=== PATIENT | female | born 1935 | race Caucasian/White ===

== ENCOUNTER 2019-08-22 00:27 | Outpatient (CLI) | payer MEDICARE, SELFPAY ==
[2019-08-22 16:41] LABS: SARS-CoV-2 RNA PCR Negative
== END 2019-08-22 00:28 | disposition home or self-care (01) ==
LOC: ANHCOVIDDT 00:28
PROVIDERS: PCP Family Medicine; Visit Provider Internal Medicine Gastroenterology
DX: Z01.812 Encounter for preprocedural laboratory examination (principal); Z20.828 Contact with and (suspected) exposure to other viral communicable diseases
CPT/HCPCS: 87635; C9803; U0003

== ENCOUNTER 2019-08-24 02:03 | Day surgery (SDC) | payer MEDICARE, SELFPAY ==
[2019-08-18 11:27] VITALS: BMI 23.4
[2019-08-24 07:51] VITALS: BP 165/75; PULSE 103; RESP 16; TEMP 36.7; O2SAT 98; BMI 23.1
[2019-08-24] MEDS: LACTATED RINGERS 1,000 ML 150 ML IV CONT (08:10)
--- NOTE | 2019-08-24 09:24 | P.PNAN_ITS ---
Anes - Initial Pre Proc Eval Procedure: Operation Date: 08/24/19 09:00 Proposed Procedures p Colonoscopy - Carlos Anand MD Date/Time: 08/24/19 09:24 Surgeon: Carlos Anand MD Pre Op Diagnosis: Constipation Patient Data Age: 84 Gender: F Height: 5 ft 8 in Weight: 69 kg Last Vital Signs Temp 98.1 F 08/24/19 07:51 Pulse 103 H 08/24/19 07:51 Resp 16 08/24/19 07:51 BP 165/75 H 08/24/19 07:51 Pulse Ox 98 08/24/19 07:51 Allergies Allergy/AdvReac Type Severity Reaction Status Date / Time No Known Allergies Allergy Mild Verified 08/24/19 07:50 Home Medications Medication Instructions Recorded Confirmed Type meloxicam 15 mg tablet 15 mg PO DAILY 02/14/19 08/24/19 History quinapril 20 mg tablet 20 mg PO DAILY #90 tablet 07/04/19 08/24/19 Rx tramadol 50 mg tablet 50 mg PO Q8H PRN #90 tablet 08/16/19 08/24/19 Rx linaclotide 145 mcg capsule 145 mcg PO DAILY #30 cap 08/17/19 08/24/19 Rx cholecalciferol (vitamin D3) 100 mcg PO DAILY 08/18/19 08/24/19 History [Vitamin D3] gznnqnmk-kxydz-pfbyv-CF borate 1 tablet PO DAILY 08/18/19 08/24/19 History [Move [facility]] Patient hx anesthesia problems: none Family hx anesthesia problems: none PMFSH Past Medical History Medical History (Updated 08/17/19 @ 14:48 by Carlos Anand MD) Adenomatous colon polyp Bowel habit changes Chronic low back pain without sciatica Dyslipidemia Essential (primary) hypertension Fibromyalgia GERD (gastroesophageal reflux disease) Hiatal hernia Hypertension Idiopathic peripheral neuropathy 04/06/2014 Peripheral neuropathy Raynauds phenomenon Unspecified osteoarthritis, unspecified site Surgical History Surgical History History of appendectomy 02/03/1969 History of total hysterectomy 07/25/1980 Social History Social History Smoking status: Former smoker Second hand tobacco smoke exposure: No Smoking end date: 03/23/72 Alcohol intake: current Substance use: never Substance use type: does not use Anes - Eval Final PreProcedure Day of Procedure 08/24/19 09:24 Patient weight: overweight Heart: regular rate and rhythm Lungs: clear to auscultation Airway: Mallampati scale class III Neurological: alert and oriented Last oral intake: >/= 8 hours ASA classification: III Emergent: no Anesthetic plan: proceed Anesthesia type and monitoring: general GIVS and standard monitoring Informed Consent: The patient's anesthetic plan and its attendant risks and benefits were discussed with the patient/family/POA. Questions were solicited and answers provided to the satisfaction of the patient/family/POA.
--- NOTE | 2019-08-24 10:16 | WPDHPUPDATE1 ---
History and Physical Update Update Date/Time: 08/24/19 10:16 History and Physical has been reviewed, including an updated exam of the patient. There are NO changes in the patient's condition. Risks, benefits, and alternatives have been discussed and questions answered. Patient agrees to proceed with procedure.
[2019-08-24 10:43] VITALS: BP 110/58; PULSE 81; RESP 18; O2SAT 96
[2019-08-24 10:53] VITALS: BP 109/58; PULSE 75; RESP 18; O2SAT 96
[2019-08-24 11:03] VITALS: BP 153/72; PULSE 83; RESP 18; O2SAT 99
[2019-08-24 11:28] LABS: Blood Urea Nitrogen 11 mg/dL (7-17); Calcium 8.7 mg/dL (8.4-10.2); Carbon Dioxide 27 mmol/L (22-30); Chloride 104 mmol/L (98-107); Estimated CRCL calculation 48 ml/min; Estimated Glomerular Filt Rate > 60; Glucose 98 mg/dL (65-105); Potassium 3.4 mmol/L (3.4-5.0); Sodium 139 mmol/L (137-145)
[2019-08-24 11:31] LABS: Basophils Percent Auto 0.6 % (0.2-1.2); Eosinophils Absolute Auto 0.1 K/mm3 (0-0.3); Hematocrit 36.4 % (37.0-47.0); Hemoglobin 11.7 g/dL (12.0-15.0); Immature Granulocyte Absolute 0.01 K/mm3 (0.00-0.031); Immature Granulocyte Percent A 0.2 % (0-0.5); Lymphocytes Percent Auto 18.2 % (18.3-44.2); Mean Corpuscular HGB Conc 32.1 g/dl (32-36); Mean Corpuscular Hemoglobin 27.3 pg (26-34); Mean Corpuscular Volume 84.8 fl (80-100); Mean Platelet Volume 10.3 fl (7.4-10.4); Monocytes Absolute Auto 0.3 K/mm3 (0.1-0.6); Monocytes Percent Auto 6.3 % (2.6-8.5); Neutrophils Absolute Auto 3.7 K/mm3 (1.3-6.7); Neutrophils Percent Auto 73.7 % (45.5-73.1); Platelet Count Result 232 k/mm3 (150-375); Red Blood Count 4.29 M/mm3 (4.2-5.4); Red Cell Distribution Width 13.8 % (11.5-14.5)
--- NOTE | 2019-08-24 11:49 | SUR.PHASEII ---
labs drawn per Dr. Cox order (CBC, BMP, CEA). script for CT scan and phone numbers given to patient.
[2019-08-24 12:01] LABS: Carcinoembryonic Antigen 2.5 ng/mL (0.0-3.0)
== END 2019-08-24 12:16 | disposition home or self-care (01) ==
PROVIDERS: PCP Family Medicine; Visit Provider Internal Medicine Gastroenterology
PROC: 0DJD8ZZ Inspection of Lower Intestinal Tract, Via Natural or Artificial Opening Endoscopic (ICD-10-PCS; CPT 45378; principal; 2019-08-24 09:00)
DX: C18.0 Malignant neoplasm of cecum (principal); D12.5 Benign neoplasm of sigmoid colon; K57.30 Diverticulosis of large intestine without perforation or abscess without bleeding; K64.8 Other hemorrhoids; I10 Essential (primary) hypertension; E78.5 Hyperlipidemia, unspecified; K21.9 Gastro-esophageal reflux disease without esophagitis; M79.7 Fibromyalgia; G62.9 Polyneuropathy, unspecified; M19.90 Unspecified osteoarthritis, unspecified site; I73.00 Raynaud's syndrome without gangrene; Z87.891 Personal history of nicotine dependence
CPT/HCPCS: 45380; 45385; 36415; 80048; 82378; 85025; 88305; J2704; J7120

== ENCOUNTER 2019-08-29 15:13 | Outpatient (CLI) | payer MEDICARE, SELFPAY ==
--- NOTE | ~2019-08-29 | CT_ITS ---
EXAMINATION: CT abdomen pelvis w con DATE: 08/29/2019 15:57 INDICATION: Colon mass. TECHNIQUE: Computed tomography (CT) of the abdomen and pelvis was performed with 100 cc Omnipaque 350 intravenous contrast. The dose-length product was 361.00 mGy-cm. Automated exposure control and iter ative reconstruction technique were employed. COMPARISON: No prior studies for comparison. FINDINGS: There is right lower lobe atelectasis. Heart size normal. No significant pleural or pericar dial effusion. Colonic diverticulosis without evidence for diverticulitis. There is mild thickening o f the proximal transverse colon which may be normal colonic contraction. Correlate for location of un derlying known mass. No obstruction. No small bowel dilation. Subtle 7 mm hypodense lesion of the right hepatic lobe, image 30. Calcified granulomas of the spleen. The pancreas contains calcifications, consistent with chronic pancreatitis. The adrenal glands are u nremarkable. There are small subcentimeter hypodensities of the kidneys, most likely benign cysts. [place] llbladder is contracted. Mild atherosclerosis without evidence for aneurysm. No lymphadenopathy. Ther e is moderate-severe lumbar spondylosis. There is scoliosis. No lytic or blastic lesions. No free air or free fluid. IMPRESSION: 1. Mild thickening of the proximal transverse colon which may be normal colonic contraction. Correlat e for location of underlying known mass. 2: Subtle 7 mm hypodense lesion right hepatic lobe. This is most likely benign cyst or hemangioma, al though metastatic disease cannot be excluded given the history. Reviewed, dictated and finalized at location A. IMPRESSION: 1. Mild thickening of the proximal transverse colon which may be normal colonic contraction. Correlate for location of underlying known mass. 2: Subtle 7 mm hypodense lesion right hepatic lobe. This is most likely benign cyst or hemangioma, although metastatic disease cannot be excluded given the hi story.
== END 2019-08-29 15:14 | disposition home or self-care (01) ==
PROVIDERS: PCP Family Medicine; Visit Provider Internal Medicine Gastroenterology
DX: C18.9 Malignant neoplasm of colon, unspecified (principal); K76.9 Liver disease, unspecified
CPT/HCPCS: 74177; Q9967

== ENCOUNTER 2019-09-12 11:59 | Outpatient (CLI) | payer MEDICARE, SELFPAY ==
--- NOTE | 2019-09-12 13:27 | ECG_ITS ---
Measurements Intervals [place] Rate: 71 P: 25 [place]: 137 QRS: 30 QRSD: 78 T: 29 QT: 386 QTc: 422 Interpretive Statements SINUS RHYTHM EARLY PRECORDIAL R/S TRANSITION BASELINE ARTIFACT- I, II, III, AVR, AVL, AVF BORDERLINE ECG Electronically Signed On 09-12-2019 14:47:27 CDT by Burton Sierra D.O.
[2019-09-12 13:42] LABS: Hematocrit 37.7 % (37.0-47.0); Hemoglobin 12.3 g/dL (12.0-15.0)
== END 2019-09-12 12:00 | disposition home or self-care (01) ==
LOC: ANHSURGERY 12:04
PROVIDERS: PCP Family Medicine; Visit Provider Surgery
DX: C18.9 Malignant neoplasm of colon, unspecified (principal); I10 Essential (primary) hypertension; R94.31 Abnormal electrocardiogram [ECG] [EKG]
CPT/HCPCS: 36415; 85014; 85018; 93005

== ENCOUNTER 2019-09-20 00:03 | Outpatient (CLI) | payer MEDICARE, SELFPAY ==
[2019-09-20 19:45] LABS: SARS-CoV-2 RNA PCR Negative
== END 2019-09-20 00:04 | disposition home or self-care (01) ==
LOC: ANHCOVIDDT 00:04
PROVIDERS: PCP Family Medicine; Visit Provider Surgery
DX: Z01.812 Encounter for preprocedural laboratory examination (principal); Z11.59 Encounter for screening for other viral diseases
CPT/HCPCS: 87635; C9803; U0003

== ENCOUNTER 2019-09-22 10:01 | Inpatient (IN) | payer MEDICARE, SELFPAY ==
[2019-09-12 12:35] VITALS: BP 138/74; PULSE 82; RESP 18; TEMP 36.9; O2SAT 98
[2019-09-12 12:53] VITALS: BMI 24.4
--- NOTE | 2019-09-21 13:21 | WPDANESEPPF ---
Anes - Initial Pre Proc Eval Procedure: Operation Date: 09/22/19 09:00 Proposed Procedures p Hand Assisted Laparoscopic Right Colectomy - Edith Medrano MD Date/Time: 09/21/19 13:21 Surgeon: Edith Medrano MD Pre Op Diagnosis: Right Colon Ca Patient Data Age: 84 Gender: F Height: 5 ft 6.5 in Weight: 69.7 kg Last Vital Signs Temp 98.4 F 09/12/19 12:35 Pulse 82 09/12/19 12:35 Resp 18 09/12/19 12:35 BP 138/74 09/12/19 12:35 Pulse Ox 98 09/12/19 12:35 Allergies Allergy/AdvReac Type Severity Reaction Status Date / Time No Known Allergies Allergy Mild Verified 08/31/19 09:50 Home Medications Medication Instructions Recorded Confirmed Type meloxicam 15 mg tablet 15 mg PO DAILY 02/14/19 09/12/19 History quinapril 20 mg tablet 20 mg PO DAILY #90 tablet 07/04/19 09/12/19 Rx tramadol 50 mg tablet 50 mg PO Q8H PRN #90 tablet 08/16/19 09/12/19 Rx cholecalciferol (vitamin D3) 100 mcg PO DAILY 08/18/19 09/12/19 History [Vitamin D3] tngtsbpb-oqorl-ojsxu-CF borate 1 tablet PO DAILY 08/18/19 09/12/19 History [[facility]] polyethylene glycol 3350 17 17 gm PO DAILY #119 gm 09/05/19 09/12/19 Rx gram/dose oral powder erythromycin 500 mg tablet 500 mg PO .COMPLEX #6 tablet 09/08/19 09/12/19 Rx neomycin 500 mg tablet 500 mg PO .COMPLEX #6 tablet 09/08/19 09/12/19 Rx Patient hx anesthesia problems: none Family hx anesthesia problems: none PMFSH Past Medical History Medical History (Updated 08/31/19 @ 09:59 by Ellie Cui) Adenomatous colon polyp Bowel habit changes Chronic low back pain without sciatica Dyslipidemia Essential (primary) hypertension Fibromyalgia GERD (gastroesophageal reflux disease) Hiatal hernia Hypertension Idiopathic peripheral neuropathy 04/06/2014 Peripheral neuropathy Raynauds phenomenon Unspecified osteoarthritis, unspecified site Surgical History Surgical History History of appendectomy 02/03/1969 History of total hysterectomy 07/25/1980 Social History Social History (Updated 08/29/19 @ 14:43 by Idalia Thompson [facility]) Smoking status: Former smoker Second hand tobacco smoke exposure: No Smoking end date: 03/23/72 Alcohol intake: current Substance use: never Substance use type: does not use Spiritual care concerns: Yes ([employer] ) Anes - Eval Final PreProcedure Day of Procedure 09/21/19 13:21 Patient weight: normal Heart: regular rate and rhythm Lungs: clear to auscultation Airway: Mallampati scale class II Neurological: alert and oriented Last oral intake: >/= 8 hours ASA classification: III Emergent: no Anesthetic plan: proceed Anesthesia type and monitoring: general ETT and standard monitoring Informed Consent: The patient's anesthetic plan and its attendant risks and benefits were discussed with the patient/family/POA. Questions were solicited and answers provided to the satisfaction of the patient/family/POA.
[2019-09-22] VITALS (15 sets, daily range): BP systolic 109–159; BP diastolic 45–98; PULSE 77–98; RESP 10–29; TEMP 36.2–37.4; O2SAT 96–100
[2019-09-22] MEDS: ALVIMOPAN 12 MG CAPSULE PO (08:00)
[2019-09-22] MEDS: IBUPROFEN IV 800 MG/200 ML 800 MG/200 ML BAG 400 MG IVPB (08:00)
[2019-09-22] MEDS: LACTATED RINGERS 1,000 ML 30 ML IV CONT ×2 (08:26→11:01)
--- NOTE | 2019-09-22 09:00 | WPDHPUPDATE1 ---
History and Physical Update Update Date/Time: 09/22/19 09:00 History and Physical has been reviewed, including an updated exam of the patient. There are NO changes in the patient's condition. Risks, benefits, and alternatives have been discussed and questions answered. Patient agrees to proceed with procedure.
[2019-09-22] MEDS: ceFAZolin 2 GM/D5W 50 ML 2 GM/50 ML BAG IVPB (09:13)
[2019-09-22] MEDS: metroNIDAZOLE 500 MG/ISO 100ML 500 MG/100 ML BAG 100 MG IVPB (09:28)
[2019-09-22] MEDS: BUPIVACAINE/EPINEPHRINE 0.5% 30 ML VIAL INFILTRATE (09:55)
--- NOTE | 2019-09-22 11:15 | PM.PROC ---
Procedure Note - Detailed Date of procedure: 09/22/19 Pre-op diagnosis: Right Colon Ca Post-op diagnosis: same Procedure performed: Hand assisted laparoscopic right colectomy, mobilization of hepatic flexure Description of procedure: The patient was taken to the operating room and placed in the supine position. After adequate induction of general anesthesia, the patient was prepped and draped normal sterile fashion. A time-out was then done to verify the patient's identity as well as the procedure being performed. I began by making a hand port incision around the umbilicus. This was carried down into the peritoneal cavity and there was no noted adhesions to the anterior abdominal wall. The hand port was then placed at this point. I then insufflated the abdomen through the hand port. I then placed the camera through the hand port under direct visualization I placed 2 5 mm ports in right lower and right mid abdomen. Once this was done, I examine the right abdomen. It was noted there was some scarring of the right colon to the right lateral abdominal wall and there was also adhesions near the hepatic flexure likely from previous cholecystectomy. Given this I slowly took down all these adhesions under direct visualization with the LigaSure device. Once the right colon was mobilized, I began my medial approach. I did this by 1st recognizing and transecting the right colic vessels. This was taken down near the base of the mesentery with the LigaSure. Once this was done, I carried this plane towards the hepatic flexure until I encountered the duodenum which was mobilized posteriorly. I then began taking down the lateral attachments of the terminal ileum and right colon including taking down the white line of [place] and the hepatic flexure. Once this was done my medial and lateral dissection planes met. I was able to easily manipulate the right colon. At this point, I extracorporealyzed the right colon and terminal ileum. I then transected the terminal ileum approximately 10 cm proximal to the ileo colic junction with a 75 CHRIS stapler. I then localized the tumor in the distal cecum, I measured 10 cm distal to this and transected the right colon at this point. I then performed a aryt-jj-paet functional end-to-end anastomosis between the ileum and proximal transverse colon with a 75 CHRIS stapler followed by a TL 60 stapler. The anastomosis was noted to be tension-free and widely patent. I then copiously irrigated the abdomen, no other pathology was noted. I then closed the hand port incision with a 1 PDS suture at the fascial level. The skin was closed with 4 O Monocryl subcuticular sutures including the 5 mm ports sites. Dermabond was then placed on all wounds. The patient tolerated the procedure well. She was extubated in the operating room postoperatively and will be transferred to the recovery room in stable condition. Implants: Anesthesia: GETA Surgeon: Edith Medrano MD Estimated blood loss (mL): 10 Drains: No Packing: No Pathology: yes Complications: No immediate complications Condition: stable Disposition: PACU Findings: palpable mass in distal cecum
--- NOTE | 2019-09-22 12:53 | SUR.PHASEI ---
FLOOR CALLED; FLOOR NURSE WILL CALL BACK.
--- NOTE | 2019-09-22 13:00 | PC.NURSE ---
This patient, Shira Wynn, was admitted to 3 [facility] Surg Room 319-01. Patient/family oriented to hospital policies and general routines including ID bracelet, bed and alarms, visiting hours, pain management, procedures, bathroom and other care routines, personal items, smoking policy, room service/diet, and visiting hours. Valuables list has been completed. Information on how to activate the Rapid Response Team has been discussed. Patient/Family are encouraged to report perceived risks to care and to ask questions if they do not understand what they are told or what they should do.
[2019-09-22] MEDS: MORPHINE SULFATE 2 MG/ML INJ IV PUSH ×2 (14:05→19:15)
[2019-09-22] MEDS: SODIUM CHLORIDE 0.9% IV 500 ML IV CONT (16:25)
[2019-09-22] MEDS: SODIUM CHLORIDE 0.9% IV 1,000 ML 100 ML IV CONT (18:16)
[2019-09-23] MEDS: MORPHINE SULFATE 2 MG/ML INJ IV PUSH ×5 (00:01→22:07)
[2019-09-23] MEDS: SODIUM CHLORIDE 0.9% IV 1,000 ML 100 ML IV CONT ×2 (05:00→15:10)
[2019-09-23 06:00] VITALS: BP 155/75; PULSE 94; RESP 18; TEMP 36.6; O2SAT 98
[2019-09-23 06:36] LABS: Hematocrit 36.7 % (37.0-47.0); Hemoglobin 12.2 g/dL (12.0-15.0); Mean Corpuscular HGB Conc 33.2 g/dl (32-36); Mean Corpuscular Hemoglobin 27.3 pg (26-34); Mean Corpuscular Volume 82.1 fl (80-100); Mean Platelet Volume 10.1 fl (7.4-10.4); Platelet Count Result 249 k/mm3 (150-375); Red Blood Count 4.47 M/mm3 (4.2-5.4); Red Cell Distribution Width 13.8 % (11.5-14.5)
[2019-09-23 06:55] LABS: Blood Urea Nitrogen 9 mg/dL (7-17); Calcium 8.5 mg/dL (8.4-10.2); Carbon Dioxide 28 mmol/L (22-30); Chloride 104 mmol/L (98-107); Estimated CRCL calculation 51 ml/min; Estimated Glomerular Filt Rate > 60; Glucose 158 mg/dL (65-105); Potassium 3.7 mmol/L (3.4-5.0); Sodium 137 mmol/L (137-145)
[2019-09-23] MEDS: CHOLECALCIFEROL 1,000 UNIT TABLET 4000 UNITS PO (08:46)
[2019-09-23] MEDS: lisinopriL 20 MG TABLET PO (08:47)
[2019-09-23] MEDS: MELOXICAM 7.5 MG TABLET 15 MG PO (08:47)
[2019-09-23] MEDS: PANTOPRAZOLE SODIUM IV 40 MG VIAL IV PUSH (08:48)
--- NOTE | 2019-09-23 08:57 | PM.PNGS ---
Progress Note: A&P Assessment and Plan (1) Colon adenocarcinoma: Code(s): C18.9 - Malignant neoplasm of colon, unspecified Status: Acute Assessment and Plan: doing well, add Toradol for pain control, OOB/IS, cont clears, await bowel fxn, path Subjective Subjective Date/Time Seen: 09/23/19 08:57 feels ok, c/o abd soreness c movt Review of Systems Constitutional: Constitutional: Denies fatigue, Denies lethargy and Denies weakness Cardiovascular: Cardiovascular: Denies chest pain Respiratory: Respiratory: Denies dyspnea Gastrointestinal: Gastrointestinal: Reports abdominal pain, Denies bloating, Denies nausea and Denies vomiting Exam Const: General: no acute distress Resp: Auscultation: clear to auscultation bilaterally Cardio: Rate: regular rate Rhythm: regular rhythm GI: Other: S, mod dist, lawrence TTP, incisions C/D/I Objective Data Vital Signs Vital Signs: Vital Signs - 24 hr 09/22/19 11:01 09/22/19 11:15 09/22/19 11:30 Temperature 36.2 C L Pulse Rate 78 77 79 Respiratory Rate 16 20 12 Blood Pressure 109/98 H 129/72 128/61 Pulse Oximetry 100 99 100 09/22/19 11:45 09/22/19 12:00 09/22/19 12:10 Temperature Pulse Rate 81 82 85 Respiratory Rate 16 20 29 H Blood Pressure 127/55 L 121/45 L 133/64 Pulse Oximetry 100 100 100 09/22/19 12:30 09/22/19 12:45 09/22/19 13:00 Temperature 37.4 C Pulse Rate 83 86 93 Respiratory Rate 10 L 10 L 18 Blood Pressure 120/72 121/60 139/63 Pulse Oximetry 100 97 97 09/22/19 13:15 09/22/19 13:45 09/22/19 14:45 Temperature 36.7 C Pulse Rate 93 90 88 Respiratory Rate 18 18 16 Blood Pressure 128/61 130/60 135/73 Pulse Oximetry 96 98 99 09/22/19 18:45 09/22/19 22:00 09/23/19 06:00 Temperature 37.1 C 36.3 C L 36.6 C Pulse Rate 80 98 94 Respiratory Rate 18 18 18 Blood Pressure 127/61 159/80 H 155/75 H Pulse Oximetry 99 96 98 Intake/Output Intake/Output: Intake & Output 09/20/19 09/21/19 09/22/19 09/23/19 23:59 23:59 23:59 23:59 Intake Total 0 1350 Output Total 750 Balance 2089 600 Meds/Results Medications: Active Medications Generic Name Dose Route Start Last Admin Trade Name Freq PRN Reason Stop Dose Admin Hydrocodone Bitart/Acetaminophen 1 tab 09/22/19 11:08 [place] 5-325 Mg PO Q4H PRN Pain Rated 4-6 Sodium Chloride 1,000 mls @ 100 mls/hr 09/22/19 17:10 09/23/19 05:00 Normal Saline Iv IV CONT 100 mls/hr .Q10H LEE ANN Administration Ketorolac Tromethamine 30 mg 09/23/19 08:55 Toradol Inj IM Q6H PRN Pain Rated 4-6 Lisinopril 20 mg 09/23/19 09:00 09/23/19 08:47 Prinivil PO 10/23/19 09:01 20 mg DAILY LEE ANN Administration Morphine Sulfate 2 mg 09/22/19 11:08 09/23/19 06:23 Morphine Sulfate Inj IV PUSH 2 mg Q4H PRN Administration Pain Rated 7-10 Non-Formulary Medication 1 tablet 09/23/19 09:00 Izpznydp-Cbnca-Mztlm-Cf Borate [Move [facility]] PO 10/23/19 09:01 DAILY [facility] Ondansetron HCl 4 mg 09/22/19 07:56 Zofran Inj IV PUSH ONCE PRN Nausea Pantoprazole Sodium 40 mg 09/23/19 09:00 09/23/19 08:48 Protonix Iv IV PUSH 40 mg QAM [facility] Administration Vitamin D 4,000 unit 09/23/19 09:00 09/23/19 08:46 Vitamin D PO 4,000 unit DAILY [facility] Administration Labs Labs: Laboratory Results - last 24 hr 09/23/19 09/23/19 06:25 06:25 WBC 9.0 RBC 4.47 Hgb 12.2 Hct 36.7 L MCV 82.1 MCH 27.3 MCHC 33.2 RDW 13.8 Plt Count 249 MPV 10.1 Sodium 137 Potassium 3.7 Chloride 104 Carbon Dioxide 28 BUN 9 Creatinine 0.70 Estim Creat Clear Calc 51 Estimated GFR > 60 Glucose 158 H Calcium 8.5
[2019-09-23 11:59] VITALS: BMI 23.3
[2019-09-23 14:00] VITALS: BP 156/80; PULSE 96; RESP 16; TEMP 36.8; O2SAT 98
[2019-09-23 22:00] VITALS: BP 158/79; PULSE 101; RESP 16; TEMP 37.2; O2SAT 96
[2019-09-24] VITALS (7 sets, daily range): BP systolic 130–165; BP diastolic 72–83; PULSE 97–180; RESP 16–20; TEMP 36.6–37.2; O2SAT 93–98
[2019-09-24] MEDS: SODIUM CHLORIDE 0.9% IV 1,000 ML 100 ML IV CONT ×2 (02:41→12:05)
[2019-09-24] MEDS: MORPHINE SULFATE 2 MG/ML INJ IV PUSH (04:44)
[2019-09-24] MEDS: KETOROLAC 30 MG/ML VIAL (*BKC) IM ×3 (07:03→21:52)
[2019-09-24] MEDS: lisinopriL 20 MG TABLET PO (09:40)
[2019-09-24] MEDS: PANTOPRAZOLE SODIUM IV 40 MG VIAL IV PUSH (09:40)
[2019-09-24] MEDS: CHOLECALCIFEROL 1,000 UNIT TABLET 4000 UNITS PO (09:40)
--- NOTE | 2019-09-24 13:00 | PM.PNGS ---
Progress Note: A&P Assessment and Plan (1) Colon adenocarcinoma: Code(s): C18.9 - Malignant neoplasm of colon, unspecified Status: Acute Assessment and Plan: Advance to full liquids today and stop IV fluids Increase activity, await return of bowel function Path pending Subjective Subjective Date/Time Seen: 09/24/19 13:00 Post Op day: 2 Patient reports: tolerating liquids well, no flatus and no bowel movement Interval history: No bloating or nausea Exam GI: Inspection: incision (C/D/I) GI Palp: Yes Tenderness to palpation present (GI) (incisional) Auscultation: Hypoactive bowel sounds present Objective Data Vital Signs Vital Signs: Vital Signs - 24 hr 09/23/19 14:00 09/23/19 22:00 09/24/19 06:00 Temperature 36.8 C 37.2 C 36.6 C Pulse Rate 96 101 H 97 Respiratory Rate 16 16 16 Blood Pressure 156/80 H 158/79 H 165/72 H Pulse Oximetry 98 96 98 Intake/Output Intake/Output: Intake & Output 09/21/19 09/22/19 09/23/19 09/24/19 23:59 23:59 23:59 23:59 Intake Total 2090 3620 2490 Output Total 2350 2700 Balance 2090 1270 -210 Meds/Results Medications: Active Medications Generic Name Dose Route Start Last Admin Trade Name Freq PRN Reason Stop Dose Admin Hydrocodone Bitart/Acetaminophen 1 tab 09/22/19 11:08 [place] 5-325 Mg PO Q4H PRN Pain Rated 4-6 Sodium Chloride 1,000 mls @ 100 mls/hr 09/22/19 17:10 09/24/19 12:05 Normal Saline Iv IV CONT 100 mls/hr .Q10H LEE ANN Administration Ketorolac Tromethamine 30 mg 09/23/19 08:55 09/24/19 07:03 Toradol Inj IM 30 mg Q6H PRN Administration Pain Rated 4-6 Lisinopril 20 mg 09/23/19 09:00 09/24/19 09:40 Prinivil PO 10/23/19 09:01 20 mg DAILY LEE ANN Administration Morphine Sulfate 2 mg 09/22/19 11:08 09/24/19 04:44 Morphine Sulfate Inj IV PUSH 2 mg Q4H PRN Administration Pain Rated 7-10 Non-Formulary Medication 1 tablet 09/23/19 09:00 Vmdagcax-Ormfk-Zxowt-Cf Borate [[facility]] PO 10/23/19 09:01 DAILY [facility] Ondansetron HCl 4 mg 09/22/19 07:56 Zofran Inj IV PUSH ONCE PRN Nausea Pantoprazole Sodium 40 mg 09/23/19 09:00 09/24/19 09:40 Protonix Iv IV PUSH 40 mg QAM LEE ANN Administration Vitamin D 4,000 unit 09/23/19 09:00 09/24/19 09:40 Vitamin D PO 4,000 unit DAILY LEE ANN Administration
--- NOTE | 2019-09-24 22:17 | ECG_ITS ---
Measurements Intervals [place] Rate: 108 P: 23 [place]: 147 QRS: 23 QRSD: 79 T: 29 QT: 313 QTc: 420 Interpretive Statements SINUS TACHYCARDIA ATRIAL PREMATURE COMPLEX EARLY PRECORDIAL R/S TRANSITION BORDERLINE ST ABNORMALITY- ANTEROSEPTAL LEADS BASELINE ARTIFACT- I, III, AVL ABNORMAL ECG Electronically Signed On 09-25-2019 6:56:09 CDT by Burton Sierra D.O.
[2019-09-24] MEDS: ADENOSINE IV SOLN 6 MG/2 ML VIAL IV PUSH (22:27)
--- NOTE | 2019-09-24 22:46 | PM.EVENT ---
Event Note Event Note Event Note: RAPID RESPONSE NOTE Called to see this 84 year old female via Rapid Response. This 84 year old is s/ POP #2 days Right sided hemicolectomy for colon cancer and tonight suddenly went into tachycardia. Nursing staff found her heart rate in the 170s-180s. On my arrival to bedside the patient denies any new symptoms other than abdominal discomfort at her surgical site. EKG demonstrated SVT. The patient was administered 6 mg of Adenosine which converted her into a sinus tachycardia w/ HR of 105 bpm. Routine labs were obtained and the patient will be transferred to IMU for closer monitoring. I have called General Surgery, Dr. Blair and updated him on the patient's condition.
--- NOTE | 2019-09-24 22:50 | PC.NURSE ---
This patient, Shira Wynn, was received from [ [phone]] on 09/24/19 at 2250. Personal belongings list checked and signed. Patient/family oriented to unit policies and routines
--- NOTE | 2019-09-24 22:56 | PM.IMCN ---
Assessment and Plan Assessment and plan (1) SVT (supraventricular tachycardia): Code(s): I47.1 - Supraventricular tachycardia Status: Resolved Assessment and Plan: The patient has now converted to sinus tachycardia w/ adenosine. She is being transferred to IMU for closer monitoring. Telemetry. We will check CBCd, BMP, Mg2+, Troponin, TSH w/ reflex T4, Urinalysis. NS 250 cc IV bolus. (2) S/P colectomy: Code(s): Z90.49 - Acquired absence of other specified parts of digestive tract Status: Acute Assessment and Plan: Continue Surgery recommendations. Pain control per primary team. (3) Essential (primary) hypertension: Code(s): I10 - Essential (primary) hypertension Status: Chronic Assessment and Plan: Stable. Monitor blood pressure. Continue ACEI. (4) Peripheral neuropathy: Qualifiers: Peripheral neuropathy type: polyneuropathy, unspecified Qualified Code(s): G62.9 - Polyneuropathy, unspecified Code(s): G62.9 - Polyneuropathy, unspecified Status: Chronic Assessment and Plan: Continue tramadol. Additional Plan Date of service was 09/24/2019 at 22:30 hrs. HPI Data of Consult Consult date: 09/24/19 Requesting Physician: Edith Medrano MD Primary Care Provider: Michael Higgins MD Consult Narrative Narrative: Thank you for consulting us to see this 84 year old female who is s/p POP#2 days right hemicolectomy secondary to colon cancer who tonight suddenly went into tachycardia. Rapid response was called as the patient was incidentally found to be in tachycardia with a heart rate in the 180s. The patient was found to be in SVT on EKG and her heart rate converted to a sinus tachycardia w/ adenosine 6 mg IV x 1. The patient denied any symptoms during the episode. She denies any chest pain, shortness of breath, headache, or dizziness. She continues to have mild abdominal discomfort around her surgical site. She has no other complaints. Review of Systems Review of Systems: All systems reviewed & are unremarkable except as noted in HPI and below PMFSH Past Medical History Medical History Adenomatous colon polyp Bowel habit changes Chronic low back pain without sciatica Dyslipidemia Essential (primary) hypertension Fibromyalgia GERD (gastroesophageal reflux disease) Hiatal hernia Hypertension Idiopathic peripheral neuropathy 04/06/2014 Peripheral neuropathy Raynauds phenomenon Unspecified osteoarthritis, unspecified site Surgical History Surgical History History of appendectomy 02/03/1969 History of total hysterectomy 07/25/1980 Family History Family History Mother Carcinoma of colon Social History Social History Smoking packs per day: 1 Smoking cigarettes per day: 20.0 Years smoked: 15 Smoking pack-years: 15.00 Smoking status: Former smoker Tobacco type: cigarettes Second hand tobacco smoke exposure: No Smoking end date: 03/23/72 Alcohol intake: never Substance use: never Substance use type: does not use Gender identity (if verbalized by the patient): Female Spiritual care concerns: No Meds Home Medications and Allergies Home Medications Medication Instructions Recorded Confirmed Type meloxicam 15 mg tablet 15 mg PO DAILY 02/14/19 09/22/19 History quinapril 20 mg tablet 20 mg PO DAILY #90 tablet 07/04/19 09/22/19 Rx tramadol 50 mg tablet 50 mg PO Q8H PRN #90 tablet 08/16/19 09/22/19 Rx cholecalciferol (vitamin D3) 100 mcg PO DAILY 08/18/19 09/22/19 History [Vitamin D3] lkqlrabq-agtzd-dpvbj-CF borate 1 tablet PO DAILY 08/18/19 09/22/19 History [[facility]] polyethylene glycol 3350 17 17 gm PO DAILY #119 gm 09/05/19 09/22/19 Rx gram/dos
[2019-09-24 23:01] LABS: Basophils Percent Auto 0.4 % (0.2-1.2); Eosinophils Absolute Auto 0.1 K/mm3 (0-0.3); Eosinophils Percent Auto 0.9 % (0-4.4); Hematocrit 40.1 % (37.0-47.0); Immature Granulocyte Absolute 0.02 K/mm3 (0.00-0.031); Immature Granulocyte Percent A 0.3 % (0-0.5); Lymphocytes Absolute Auto 1.04 K/mm3 (0.9-3.2); Lymphocytes Percent Auto 14.8 % (18.3-44.2); Mean Corpuscular HGB Conc 32.4 g/dl (32-36); Mean Corpuscular Hemoglobin 27.5 pg (26-34); Mean Platelet Volume 10.4 fl (7.4-10.4); Monocytes Absolute Auto 0.6 K/mm3 (0.1-0.6); Monocytes Percent Auto 8.9 % (2.6-8.5); Neutrophils Absolute Auto 5.3 K/mm3 (1.3-6.7); Neutrophils Percent Auto 74.7 % (45.5-73.1); Platelet Count Result 256 k/mm3 (150-375); Red Blood Count 4.72 M/mm3 (4.2-5.4); Red Cell Distribution Width 13.7 % (11.5-14.5); White Blood Count 7.1 K/mm3 (4.5-10.0)
[2019-09-24] MEDS: SODIUM CHLORIDE 0.9% IV 250 ML 999 ML IV CONT (23:01)
[2019-09-24 23:12] LABS: Blood Urea Nitrogen 10 mg/dL (7-17); Calcium 8.4 mg/dL (8.4-10.2); Carbon Dioxide 26 mmol/L (22-30); Chloride 106 mmol/L (98-107); Estimated CRCL calculation 51 ml/min; Estimated Glomerular Filt Rate > 60; Glucose 132 mg/dL (65-105); Magnesium 1.8 mg/dL (1.6-2.3); Potassium 3.1 mmol/L (3.4-5.0); Sodium 137 mmol/L (137-145)
[2019-09-24 23:24] LABS: Troponin I < 0.012 ng/mL (0.000-0.034)
[2019-09-25] VITALS (16 sets, daily range): BP systolic 111–160; BP diastolic 69–88; PULSE 92–111; RESP 12–20; TEMP 35.6–37.1; O2SAT 93–100
[2019-09-25] MEDS: POTASSIUM CHLORIDE 20 MEQ TABLET 40 MEQ PO (00:46)
[2019-09-25] MEDS: MORPHINE SULFATE 2 MG/ML INJ IV PUSH (01:36)
--- NOTE | 2019-09-25 01:46 | PC.NURSE ---
Please add daughter to contact list Gretchen Lopes [phone]
--- NOTE | 2019-09-25 01:50 | PC.NURSE ---
This patient, Shira Wynn, was transferred to [IMU [id number]] on 09/24/19 at 2245. Personal belongings sent with patient. Belongings list checked and signed with receiving [ tech]. Report given to [Margarita ]. Appropriate documentation sent with patient.
[2019-09-25] MEDS: lisinopriL 20 MG TABLET PO (09:32)
[2019-09-25] MEDS: PANTOPRAZOLE SODIUM IV 40 MG VIAL IV PUSH (09:32)
[2019-09-25] MEDS: CHOLECALCIFEROL 1,000 UNIT TABLET 4000 UNITS PO (09:33)
--- NOTE | 2019-09-25 15:48 | PM.PNGS ---
Progress Note: A&P Assessment and Plan (1) Colon adenocarcinoma: Code(s): C18.9 - Malignant neoplasm of colon, unspecified Status: Acute Assessment and Plan: Advance to soft regular diet today Possibly home tomorrow if remaining stable and improving Pathology pending (2) Patient is [employer]: Code(s): Z78.9 - Other specified health status Status: Acute (3) SVT (supraventricular tachycardia): Code(s): I47.1 - Supraventricular tachycardia Status: Resolved Assessment and Plan: appreciate hospitalist input On telemetry Subjective Subjective Date/Time Seen: 09/25/19 15:48 Patient had tachycardic episode last night and rapid response called. Was in SVT and Night time hospitalist was able to convert patient back to sinus rhythm. She was feeling palpitations when it happened last night. No more feelings like this today. Bowels moving, and pain controlled. No fevers. Exam GI: Inspection: incision (clean/dry/intact) GI Palp: Yes Soft to palpation, Yes Tenderness to palpation present (GI) (incisional) and No Guarding due to palpation present (GI) Auscultation: normal bowel sounds Objective Data Vital Signs Vital Signs: Vital Signs - 24 hr 09/24/19 22:00 09/24/19 22:05 09/24/19 22:15 Temperature 37.2 C 37.2 C Pulse Rate 180 H 178 H 178 H Respiratory Rate 20 16 Blood Pressure 130/74 136/74 Pulse Oximetry 93 09/24/19 22:54 09/24/19 22:59 09/24/19 23:00 Temperature 36.6 C Pulse Rate 102 H 103 H 104 H Respiratory Rate 18 Blood Pressure 133/83 133/83 Pulse Oximetry 94 09/25/19 00:00 09/25/19 00:04 09/25/19 02:00 Temperature 36.4 C Pulse Rate 102 H 104 H 99 Respiratory Rate 18 Blood Pressure 148/87 H Pulse Oximetry 95 09/25/19 04:00 09/25/19 06:00 09/25/19 07:46 Temperature 36.2 C L 35.6 C L Pulse Rate 103 H 105 H 109 H Respiratory Rate 20 12 Blood Pressure 131/71 148/88 H Pulse Oximetry 94 93 09/25/19 08:00 09/25/19 10:00 09/25/19 12:00 Temperature 35.8 C L Pulse Rate 111 H 101 H 96 Respiratory Rate 20 Blood Pressure 147/72 H Pulse Oximetry 95 09/25/19 14:00 Temperature Pulse Rate 93 Respiratory Rate Blood Pressure Pulse Oximetry Intake/Output Intake/Output: Intake & Output 09/22/19 09/23/19 09/24/19 09/25/19 23:59 23:59 23:59 23:59 Intake Total 2090 3620 4010 480 Output Total 2350 3550 250 Balance 2090 1270 460 230 Meds/Results Medications: Active Medications Generic Name Dose Route Start Last Admin Trade Name Freq PRN Reason Stop Dose Admin Hydrocodone Bitart/Acetaminophen 1 tab 09/22/19 11:08 09/25/19 11:10 [place] 5-325 Mg PO 1 tab Q4H PRN Administration Pain Rated 4-6 Ketorolac Tromethamine 30 mg 09/23/19 08:55 09/24/19 21:52 Toradol Inj IM 30 mg Q6H PRN Administration Pain Rated 4-6 Lisinopril 20 mg 09/23/19 09:00 09/25/19 09:32 Prinivil PO 10/23/19 09:01 20 mg DAILY LEE ANN Administration Morphine Sulfate 2 mg 09/22/19 11:08 09/25/19 01:36 Morphine Sulfate Inj IV PUSH 2 mg Q4H PRN Administration Pain Rated 7-10 Non-Formulary Medication 1 tablet 09/23/19 09:00 Yrrdimus-Duiur-Uburc-Cf Borate [[facility]] PO 10/23/19 09:01 DAILY LEE ANN Ondansetron HCl 4 mg 09/22/19 07:56 Zofran Inj IV PUSH ONCE PRN Nausea Pantoprazole Sodium 40 mg 09/23/19 09:00 09/25/19 09:32 Protonix Iv IV PUSH 40 mg QAM LEE ANN Administration Vitamin D 4,000 unit 09/23/19 09:00 09/25/19 09:33 Vitamin D PO 4,000 unit DAILY LEE ANN Administration Labs Labs: Laboratory Results - last 24 hr 09/24/19 09/24/19 09/24/19 22:51 22:51 22:51 WBC 7.1 RBC 4.72 Hgb 13.0 Hct 40.1 MCV 85.0 MCH 27.5 MCHC 32.4 RDW 13.7 Plt Count 256 MPV 10.4 Immature Gran % (Auto) 0.3 Neut % (Auto) 74.7 H Lymph % (Auto) 14.8 L [place] % (Auto) 8.9 H Eos % (
--- NOTE | 2019-09-25 16:26 | PM.IMPN ---
Progress Note: A&P Assessment and Plan (1) SVT (supraventricular tachycardia): Code(s): I47.1 - Supraventricular tachycardia Status: Resolved Assessment and Plan: TReat anxiety continue cardiac monitor (2) S/P colectomy: Code(s): Z90.49 - Acquired absence of other specified parts of digestive tract Status: Acute Assessment and Plan: Pain control per primary team - surgery team (3) Essential (primary) hypertension: Code(s): I10 - Essential (primary) hypertension Status: Chronic Assessment and Plan: Stable. Monitor blood pressure. Continue ACEI. (4) Peripheral neuropathy: Qualifiers: Peripheral neuropathy type: polyneuropathy, unspecified Qualified Code(s): G62.9 - Polyneuropathy, unspecified Code(s): G62.9 - Polyneuropathy, unspecified Status: Chronic Assessment and Plan: Continue tramadol. Subjective Date/time seen: 09/25/19 16:26 Interval history: Pt appears anxious alot going on recently. S/p POP#3 days right hemicolectomy secondary to colon cancer No longer in SVT. Plan is to treat the anxiety. and move to telemetry floor Review of Systems Review of Systems: All systems reviewed & are unremarkable except as noted in HPI and below Exam Const: General: cooperative, no acute distress, alert and awake Nutritional Appearance: well nourished Orientation/consciousness: patient oriented x3 Resp: Effort & Inspection: normal respiratory effort Auscultation: clear to auscultation bilaterally Cardio: Rate: tachycardic Rhythm: regular rhythm Heart sounds: no murmurs GI: Inspection: other (Surgical site is closed and dry w/ surgical glue. No secretions. ) Auscultation: normal bowel sounds Rectal Exam: deferred Skin: General skin exam: normal color and no rashes or lesions noted Neuro: General: patient oriented x3 Cranial nerves: Yes CN's II-XII intact bilaterally and Yes Equal, round and reactive pupils present Speech: normal speech Motor exam (neuro): 5/5 motor strength present throughout Sensory Exam: normal sensation Extrem: General: normal to inspection and no edema Psych: Mental Status: mental status grossly normal Affect: normal affect Objective Data Vital Signs Vital Signs: Vital Signs - 24 hr 09/24/19 22:00 09/24/19 22:05 09/24/19 22:15 Temperature 37.2 C 37.2 C Pulse Rate 180 H 178 H 178 H Respiratory Rate 20 16 Blood Pressure 130/74 136/74 Pulse Oximetry 93 09/24/19 22:54 09/24/19 22:59 09/24/19 23:00 Temperature 36.6 C Pulse Rate 102 H 103 H 104 H Respiratory Rate 18 Blood Pressure 133/83 133/83 Pulse Oximetry 94 09/25/19 00:00 09/25/19 00:04 09/25/19 02:00 Temperature 36.4 C Pulse Rate 102 H 104 H 99 Respiratory Rate 18 Blood Pressure 148/87 H Pulse Oximetry 95 09/25/19 04:00 09/25/19 06:00 09/25/19 07:46 Temperature 36.2 C L 35.6 C L Pulse Rate 103 H 105 H 109 H Respiratory Rate 20 12 Blood Pressure 131/71 148/88 H Pulse Oximetry 94 93 09/25/19 08:00 09/25/19 10:00 09/25/19 12:00 Temperature 35.8 C L Pulse Rate 111 H 101 H 96 Respiratory Rate 20 Blood Pressure 147/72 H Pulse Oximetry 95 09/25/19 14:00 Temperature Pulse Rate 93 Respiratory Rate Blood Pressure Pulse Oximetry Intake/Output Intake/Output: Intake & Output 09/22/19 09/23/19 09/24/19 09/25/19 23:59 23:59 23:59 23:59 Intake Total 2090 3620 4010 480 Output Total 2350 3550 250 Balance 2090 1270 460 230 Meds/Results Medications: Active Medications Generic Name Dose Route Start Last Admin Trade Name Freq PRN Reason Stop Dose Admin Hydrocodone Bitart/Acetaminophen 1 tab 09/22/19 11:08 09/25/19 16:09 [place] 5-325 Mg PO 1 tab Q4H PRN Administration Pain Rated 4-6 Ketorolac Tromethamine 30 mg 09/23/19 08:55 09/24/19 21:52 Toradol Inj IM 30 mg Q6H PRN Administration Pain Rated 4-6 Lisinopril 20 mg 09/23/19 09:0
--- NOTE | 2019-09-25 22:35 | PC.NURSE ---
This patient, Shira Wynn, was transferred to [[id number] ] on 09/25/19 at 2235. Personal belongings sent with patient. Belongings list checked and signed with receiving [ ]. Report given to [Peace russell ]. Appropriate documentation sent with patient.
--- NOTE | 2019-09-25 22:40 | PC.NURSE ---
This patient, Shira Wynn, was received from [U 204 ] on 09/25/19 at 2240. Personal belongings list checked and signed. Patient/family oriented to unit policies and routines
[2019-09-26] VITALS (8 sets, daily range): BP systolic 139–167; BP diastolic 75–81; PULSE 96–104; RESP 18; TEMP 36.7–37.3; O2SAT 96–98
[2019-09-26 06:23] LABS: Hematocrit 37.5 % (37.0-47.0); Hemoglobin 12.1 g/dL (12.0-15.0); Mean Corpuscular HGB Conc 32.3 g/dl (32-36); Mean Corpuscular Hemoglobin 27.3 pg (26-34); Mean Corpuscular Volume 84.7 fl (80-100); Mean Platelet Volume 10.9 fl (7.4-10.4); Platelet Count Result 289 k/mm3 (150-375); Red Blood Count 4.43 M/mm3 (4.2-5.4); Red Cell Distribution Width 13.5 % (11.5-14.5); White Blood Count 3.7 K/mm3 (4.5-10.0)
[2019-09-26 06:36] LABS: Blood Urea Nitrogen 12 mg/dL (7-17); Calcium 8.7 mg/dL (8.4-10.2); Carbon Dioxide 29 mmol/L (22-30); Chloride 102 mmol/L (98-107); Estimated CRCL calculation 51 ml/min; Estimated Glomerular Filt Rate > 60; Glucose 134 mg/dL (65-105); Potassium 3.5 mmol/L (3.4-5.0); Sodium 136 mmol/L (137-145)
[2019-09-26] MEDS: CHOLECALCIFEROL 1,000 UNIT TABLET 4000 UNITS PO (09:47)
[2019-09-26] MEDS: lisinopriL 20 MG TABLET PO (09:47)
[2019-09-26] MEDS: PANTOPRAZOLE SODIUM IV 40 MG VIAL IV PUSH (09:47)
[2019-09-26] MEDS: SIMETHICONE 80 MG TAB.CHEW PO (11:42)
--- NOTE | 2019-09-26 14:53 | PM.DS ---
DS: Admitting Diagnosis Admitting Diagnosis Admitting Diagnosis: Malignant neoplasm of colon, unspecified. Right colon cancer. Essential hypertension. Dyslipidemia. Osteoarthritis. GERD. Fibromyalgia. Chronic low back pain. Patient is Christian. DS: Discharge Diagnosis Discharge Diagnosis (1) Colon adenocarcinoma: Code(s): C18.9 - Malignant neoplasm of colon, unspecified Status: Acute Assessment and Plan: Patient underwent colonoscopy with Dr. Anand for recent development of constipation on 08/24/19 with findings of a protruding 35mm x 40mm fungating, friable infiltrative, malignant appearing, ulcerated mass at the junction of cecum and proximal ascending colon, near the ileocecal valve. Biopsies were taken and pathology showed polyp to be a colonic adenocarcinoma. Follow-up CT scan performed 08/29/2019 showed mild thickening of the proximal transverse colon. It also showed a subtle 7mm hypodense lesion of the right hepatic lobe - most likely benign cyst or hemangioma. The patient was evaluated by Dr. Medrano as an outpatient in our office and was brought to the hospital to be taken to surgery on 09/22/19 for a hand-assisted laparoscopic right colectomy. Final pathology received today and was discussed with the patient in detail by Dr. Medrano at the bedside. Pathology shows moderately differentiated adenocarcinoma with negative margins and 5/12 positive lymph nodes for metastatic carcinoma. PT3, pN2a, PMX. (2) SVT (supraventricular tachycardia): Code(s): I47.1 - Supraventricular tachycardia Status: Resolved Assessment and Plan: Had an episode of SVT on the night of POD#2 with her heart rate in the 170-180's. Rapid response was called and the patient was treated with Adenosine. She apparently was asymptomatic. Hospitalist was consulted on her case. Troponin drawn and negative. EKG showed sinus tachycardia. She had experienced a significant increase in anxiety during her hospitalization and it was felt this is likely contributing to the tachycardia. She was started on Xanax for anxiety. The patient now admits to feeling very anxious, which is exacerbated at night when she does not have family around. Her daughter is at the bedside today and feels her mother is much more anxious than normal and it is has been worse at night while in the hospital. I discussed with the patient and her daughter that she should have follow-up with her PCP as soon as possible after discharge to also discuss her anxiety and decide on further management. Patient in sinus rhythm with heart rate in the 90's on my exam this morning. Patient asymptomatic with no cardiac complaints. (3) Essential (primary) hypertension: Code(s): I10 - Essential (primary) hypertension Status: Chronic Assessment and Plan: BP stable. Restarted on home medication following surgery once tolerating a diet. No changes. Follow-up with PCP. (4) Fibromyalgia: Code(s): M79.7 - Fibromyalgia Status: Acute (5) Chronic low back pain without sciatica: Qualifiers: Back pain laterality: unspecified Qualified Code(s): M54.5 - Low back pain; G89.29 - Other chronic pain Code(s): M54.5 - Low back pain; G89.29 - Other chronic pain Status: Acute (6) Dyslipidemia: Code(s): E78.5 - Hyperlipidemia, unspecified Status: Acute (7) Unspecified osteoarthritis, unspecified site: Qualifiers: Osteoarthritis location: unspecified site Osteoarthritis type: unspecified Qualified Code(s): M19.90 - Unspecified osteoarthritis, unspecified site Code(s): M19.90 - Unspecified osteoarthritis, unspecified site Status: Acute (8) GERD (gastroesophageal reflux disease): Code(s): K21.9 - Gastro-esophageal reflux disease without esophagitis Status: Acute (9) Patient is [employer]: Code(s): Z78.9 - Other specified health status Status: Acute DS: Summary Hospi
--- NOTE | 2019-09-26 15:52 | PM.IMPN ---
Progress Note: A&P Assessment and Plan (1) SVT (supraventricular tachycardia): Code(s): I47.1 - Supraventricular tachycardia Status: Resolved Assessment and Plan: TReat anxiety with xanax most likely related to being in the hospital (2) S/P colectomy: Code(s): Z90.49 - Acquired absence of other specified parts of digestive tract Status: Acute Assessment and Plan: Pain control per primary team - surgery team Pt appears anxious alot going on recently. S/p POP#4 days right hemicolectomy secondary to colon cancer No longer in SVT. this am patient is anxious her daughter is present in the room, will give xanax as needed, patient is seen by surgery teams and clinically stable, she is bieng discharged. (3) Essential (primary) hypertension: Code(s): I10 - Essential (primary) hypertension Status: Chronic Assessment and Plan: Stable. Continue ACEI. (4) Peripheral neuropathy: Qualifiers: Peripheral neuropathy type: polyneuropathy, unspecified Qualified Code(s): G62.9 - Polyneuropathy, unspecified Code(s): G62.9 - Polyneuropathy, unspecified Status: Chronic Assessment and Plan: Continue tramadol. Subjective Date/time seen: 09/26/19 15:52 Interval history: Pt appears anxious alot going on recently. S/p POP#4 days right hemicolectomy secondary to colon cancer No longer in SVT. this am patient is anxious her daughter is present in the room, will give xanax as needed, patient is seen by surgery teams and clinically stable, she is bieng discharged. Review of Systems Review of Systems: All systems reviewed & are unremarkable except as noted in HPI and below Exam Const: General: comfortable and no acute distress HENMT: General nose exam: Normal nares present Mouth: Yes moist mucous membranes Eyes: General: appearance normal, both eyes and all related structures Sclera: sclerae normal Neck: Neck: supple Resp: Effort & Inspection: normal respiratory effort Auscultation: clear to auscultation bilaterally Cardio: Rate: regular rate Rhythm: regular rhythm GI: Auscultation: normal bowel sounds Skin: General skin exam: normal color Neuro: Speech: normal speech Sensory Exam: normal sensation Extrem: General: normal to inspection Psych: Affect: Anxious affect present Objective Data Vital Signs Vital Signs: Vital Signs - 24 hr 09/25/19 16:00 09/25/19 17:43 09/25/19 19:48 Temperature 96.4 F L 97.9 F Pulse Rate 105 H 107 H 103 H Respiratory Rate 16 20 Blood Pressure 111/76 140/69 Pulse Oximetry 100 94 09/25/19 20:00 09/25/19 22:00 09/25/19 22:40 Temperature 98.7 F Pulse Rate 96 92 99 Respiratory Rate 20 18 Blood Pressure 160/75 H Pulse Oximetry 94 95 09/26/19 00:00 09/26/19 02:00 09/26/19 04:00 Temperature 99.2 F Pulse Rate 97 99 96 Respiratory Rate 18 Blood Pressure 167/78 H Pulse Oximetry 96 09/26/19 06:00 09/26/19 08:00 09/26/19 12:00 Temperature 98.4 F Pulse Rate 96 103 H 96 Respiratory Rate 18 Blood Pressure 158/81 H Pulse Oximetry 98 09/26/19 14:00 Temperature 98.1 F Pulse Rate 104 H Respiratory Rate 18 Blood Pressure 139/75 Pulse Oximetry 97 Intake/Output Intake/Output: Intake & Output 09/23/19 09/24/19 09/25/19 09/26/19 23:59 23:59 23:59 23:59 Intake Total 3620 4010 1120 820 Output Total 2350 3550 250 Balance 1270 460 870 820 Meds/Results Medications: Active Medications Generic Name Dose Route Start Last Admin Trade Name Freq PRN Reason Stop Dose Admin Hydrocodone Bitart/Acetaminophen 1 tab 09/22/19 11:08 09/26/19 09:47 [place] 5-325 Mg PO 1 tab Q4H PRN Administration Pain Rated 4-6 Alprazolam 0.125 mg 09/25/19 16:53 09/26/19 10:49 Xanax PO 0.125 mg TID PRN Administration Anxiety Ketorolac Tromethamine 30 mg 09/23/19 08:55 09/24/19 21:52 Toradol Inj IM 30 mg Q6H PRN Administration Pain Rated
== END 2019-09-26 16:30 | disposition home or self-care (01) | DRG 330 ==
LOC: ANH3MEDSUR 13:18 → ANHIMU 09-24 23:00 → ANH3MEDSUR 09-25 23:03
PROVIDERS: Family Medicine; Surgery; Admitting Provider Surgery; PCP Family Medicine; Visit Provider Surgery
PROC: 0DTF4ZZ Resection of Right Large Intestine, Percutaneous Endoscopic Approach (ICD-10-PCS; CPT 44204; principal; 2019-09-22 09:00)
DX: C18.2 Malignant neoplasm of ascending colon (principal); I47.2 Ventricular tachycardia; C77.9 Secondary and unspecified malignant neoplasm of lymph node, unspecified; F41.9 Anxiety disorder, unspecified; I10 Essential (primary) hypertension; E78.5 Hyperlipidemia, unspecified; M19.90 Unspecified osteoarthritis, unspecified site; K21.9 Gastro-esophageal reflux disease without esophagitis; M79.7 Fibromyalgia; M54.5 Low back pain; G89.29 Other chronic pain; G60.9 Hereditary and idiopathic neuropathy, unspecified; I73.00 Raynaud's syndrome without gangrene; Z78.9 Other specified health status; Z87.891 Personal history of nicotine dependence; Z86.010 Personal history of colon polyps; Z90.49 Acquired absence of other specified parts of digestive tract
CPT/HCPCS: 36415; 80048; 83735; 84443; 84484; 85025; 85027; 87635; 88309; 93005; A9270; C9113; C9290; C9803; J0131; J0153; J0690; J1100; J1170; J1741; J1885; J2270; J2405; J2704; J2710; J3010; J7030; J7040; J7050; J7120; U0003

== ENCOUNTER 2019-10-17 16:36 | Outpatient (CLI) | payer MEDICARE, SELFPAY ==
[2019-10-17 16:59] LABS: Basophils Percent Auto 0.3 % (0.2-1.2); Eosinophils Absolute Auto 0.1 K/mm3 (0-0.3); Hematocrit 34.4 % (37.0-47.0); Hemoglobin 11.1 g/dL (12.0-15.0); Immature Granulocyte Absolute 0.03 K/mm3 (0.00-0.031); Immature Granulocyte Percent A 0.3 % (0-0.5); Lymphocytes Absolute Auto 0.91 K/mm3 (0.9-3.2); Lymphocytes Percent Auto 9.4 % (18.3-44.2); Mean Corpuscular HGB Conc 32.3 g/dl (32-36); Mean Corpuscular Hemoglobin 27.2 pg (26-34); Mean Corpuscular Volume 84.3 fl (80-100); Mean Platelet Volume 10.2 fl (7.4-10.4); Monocytes Absolute Auto 0.8 K/mm3 (0.1-0.6); Monocytes Percent Auto 8.4 % (2.6-8.5); Neutrophils Absolute Auto 7.8 K/mm3 (1.3-6.7); Neutrophils Percent Auto 80.6 % (45.5-73.1); Platelet Count Result 310 k/mm3 (150-375); Red Blood Count 4.08 M/mm3 (4.2-5.4); Red Cell Distribution Width 13.7 % (11.5-14.5); White Blood Count 9.7 K/mm3 (4.5-10.0)
[2019-10-17 17:13] LABS: Alanine Aminotransferase 12 U/L (4-35); Albumin Level 3.8 g/dL (3.5-5.1); Alkaline Phosphatase 90 U/L (38-126); Anion Gap 11.9 mmol/L (7-16); Aspartate Amino Transferase 22 U/L (14-36); Bilirubin,Total 0.4 mg/dL (0.2-1.3); Blood Urea Nitrogen 9 mg/dL (7-17); Calcium 8.9 mg/dL (8.4-10.2); Carbon Dioxide 29 mmol/L (22-30); Chloride 99 mmol/L (98-107); Estimated Glomerular Filt Rate > 60; Glucose 114 mg/dL (65-105); Potassium 3.9 mmol/L (3.4-5.0); Sodium 136 mmol/L (137-145)
[2019-10-17 17:41] LABS: Carcinoembryonic Antigen 2.6 ng/mL (0.0-3.0)
== END 2019-10-17 16:37 | disposition home or self-care (01) ==
PROVIDERS: PCP Family Medicine; Visit Provider Internal Medicine Hematology & Oncology
DX: C18.2 Malignant neoplasm of ascending colon (principal)
CPT/HCPCS: 36415; 80053; 82378; 85025

== ENCOUNTER 2019-10-20 11:18 | Outpatient (CLI) | payer MEDICARE, SELFPAY ==
--- NOTE | 2019-10-20 11:21 | ECG_ITS ---
Measurements Intervals [place] Rate: 78 P: 54 [place]: 151 QRS: 42 QRSD: 75 T: 42 QT: 362 QTc: 413 Interpretive Statements SINUS RHYTHM BASELINE ARTIFACT- I, III, AVR, AVL, AVF NORMAL ECG Electronically Signed On 10-20-2019 11:44:14 CDT by Burton Sierra D.O.
[2019-10-20 11:53] LABS: Prothrombin Time 13.2 Seconds (11.1-14.7)
[2019-10-20 11:55] LABS: Partial Thromboplastin Time 29.1 SECONDS (22.3-36.8)
== END 2019-10-20 11:19 | disposition home or self-care (01) ==
LOC: ANHSURGERY 11:21
PROVIDERS: PCP Family Medicine; Visit Provider Surgery
DX: C18.9 Malignant neoplasm of colon, unspecified (principal); I10 Essential (primary) hypertension
CPT/HCPCS: 36415; 85610; 85730; 93005

== ENCOUNTER 2019-10-21 00:47 | Outpatient (CLI) | payer MEDICARE, SELFPAY ==
[2019-10-21 20:43] LABS: SARS-CoV-2 RNA PCR Negative
== END 2019-10-21 00:48 | disposition home or self-care (01) ==
LOC: ANHCOVIDDT 00:47
PROVIDERS: PCP Family Medicine; Visit Provider Surgery
DX: Z01.818 Encounter for other preprocedural examination (principal); Z11.59 Encounter for screening for other viral diseases
CPT/HCPCS: 87635; C9803; U0003

== ENCOUNTER 2019-10-24 00:51 | Day surgery (SDC) | payer MEDICARE, SELFPAY ==
[2019-10-19 13:23] VITALS: BMI 21.6
--- NOTE | ~2019-10-24 | XR_ITS ---
EXAMINATION: XR fl guide central line place INDICATION: Port-A-Cath insertion TECHNIQUE: A single intraoperative fluoroscopic image is submitted for review. Fluoroscopy exposure t sarah was 42.8 seconds. The DAP for this procedure was [id number] mGym2. COMPARISON: None available FINDINGS: Fluoroscopic image demonstrates a left subclavian Port-A-Cath ending with its tip in the pr oximal superior vena cava. Please refer to procedure note for full details. IMPRESSION: 1. Left subclavian Port-A-Cath ending with its tip in the proximal superior vena cava. Please refer t o procedure note for full details. Reviewed, dictated and finalized at location A. IMPRESSION: 1. Left subclavian Port-A-Cath ending with its tip in the proximal superior wilfredo a cava. Please refer to procedure note for full details.
--- NOTE | ~2019-10-24 | XR_ITS ---
EXAMINATION: XR chest port-a-cath/central INDICATION: Port-A-Cath insertion TECHNIQUE: Portable AP chest at 0829 hours COMPARISON: 08/06/2005 FINDINGS: A left subclavian Port-A-Cath has been inserted which ends with its tip in the proximal sup erior vena cava. There is kinking of the catheter as it passes between the clavicle and first rib. Th e lungs are free of acute opacities. There is no pleural effusion or pneumothorax. The cardiomediasti nal silhouette is normal. IMPRESSION: 1. Left subclavian Port-A-Cath insertion ending in the proximal superior vena cava. 2. Kinking of the catheter as it passes between the clavicle and first rib increases risk for cathete r fracture. Reviewed, dictated and finalized at location A. IMPRESSION: 1. Left subclavian Port-A-Cath insertion ending in the proximal superior vena c leigha. 2. Kinking of the catheter as it passes between the clavicle and first rib incr eases risk for catheter fracture.
[2019-10-24 07:00] VITALS: BP 151/67; PULSE 76; RESP 14; TEMP 36.6; O2SAT 98; BMI 20.7
--- NOTE | 2019-10-24 07:05 | WPDANESEFPP ---
Anes - Eval Final PreProcedure Day of Procedure 10/24/19 07:05 Patient weight: normal Heart: regular rate and rhythm Lungs: clear to auscultation Airway: Mallampati scale class II Neurological: alert and oriented Last oral intake: >/= 8 hours ASA classification: III Emergent: no Anesthetic plan: proceed Anesthesia type and monitoring: general GIVS and standard monitoring Informed Consent: The patient's anesthetic plan and its attendant risks and benefits were discussed with the patient/family/POA. Questions were solicited and answers provided to the satisfaction of the patient/family/POA.
--- NOTE | 2019-10-24 07:22 | WPDHPUPDATE1 ---
History and Physical Update Update Date/Time: 10/24/19 07:22 History and Physical has been reviewed, including an updated exam of the patient. There are NO changes in the patient's condition. Risks, benefits, and alternatives have been discussed and questions answered. Patient agrees to proceed with procedure.
[2019-10-24] MEDS: LACTATED RINGERS 1,000 ML 30 ML IV CONT (07:30)
--- NOTE | 2019-10-24 07:56 | SUR.PREOP ---
URINE PREG TEST NEGATIVE, URINE SPECIFIC GRAVITY 1.014
[2019-10-24] MEDS: BUPIVACAINE/EPINEPHRINE 0.5% 10 ML VIAL 30 ML INFILTRATE (07:59)
[2019-10-24] MEDS: HEPARIN SODIUM, PORCINE 10,000 UNITS/10 ML VIAL 10000 UNITS IV PUSH (08:01)
[2019-10-24] MEDS: HEPARIN SODIUM 5,000 UNITS/ML VIAL 5000 UNITS IRRIGATION (08:01)
[2019-10-24 08:23] VITALS: BP 125/68; PULSE 84; RESP 14; O2SAT 92
--- NOTE | 2019-10-24 08:23 | PM.PROC ---
Procedure Note - Detailed Date of procedure: 10/24/19 Pre-op diagnosis: colon CA Post-op diagnosis: same Procedure performed: placement of left subclavian venous access device under fluroscopic guidance Description of procedure: Patient was brought into the operating room and placed in the supine position. After adequate induction of mac anesthesia, the patient was prepped and draped in normal sterile fashion. Time-out was then done to verify the patient's identity, as well as the procedure being performed. I began by making a small incision in the left chest, I then gained access into the left subclavian vein with an 18 gauge needle. I then placed the guidewire into the vein and confirmed placement via fluoroscopic guidance. I then locally anesthetized the area in the left chest. I then enlarged the incision around the guidewire including making a subcutaneous pocket inferiorly to allow placement of the port itself. I then placed a dilating sheath over the guidewire into the left subclavian vein via sterile Seldinger technique. This was once again done and confirmed via fluoroscopic guidance. I then removed the dilator and the guidewire, now just leaving the sheath in the vein. I then fed the previously flushed catheter into the left subclavian vein under fluoroscopic guidance. At approximately 20 cm, the catheter was noted to be near the atrial caval junction. I then peeled away the sheath, now just leaving the catheter in the vein. I then was able to easily draw and flush from the catheter. The catheter was cut to fit and attached to the port itself. The port was placed into the previously made subcutaneous pocket and sutured in with 0 Ethibond suture. Final fluoroscopic view showed the termination of the catheter at the atrial caval junction with a nice smooth curvature back to the port itself. I was able to gain access to the port with a Voss needle and was able to easily draw and flush from the port. I then flushed 4 cc of a final heparin flush into the port. The incision was closed with 3 0 Vicryl suture in the subcutaneous tissue and the skin was closed with 4 O Monocryl subcuticular suture. Dermabond was then placed on wound. The patient tolerated the procedure well and will be sent to the recovery room in stable condition. Implants: L SCV VAD Anesthesia: MAC and local Surgeon: Edith Medrano MD Estimated blood loss (mL): 20 Drains: No Packing: No Pathology: none sent Complications: No immediate complications Condition: stable Disposition: PACU Findings: placement of L SCV VAD via 1st stick
[2019-10-24 08:45] VITALS: BP 156/72; PULSE 82; RESP 16
--- NOTE | 2019-10-24 08:58 | SUR.PHASEII ---
0855 - dr. medrano called in regards to chest xray result findings. Dr. Medrano stated that the catheter works.
[2019-10-24] MEDS: traMADol HCL 50 MG TABLET PO (09:12)
[2019-10-24 09:15] VITALS: BP 155/76; PULSE 78; RESP 16
[2019-10-24 09:35] VITALS: BP 152/76; PULSE 72; RESP 16
== END 2019-10-24 09:45 | disposition home or self-care (01) ==
PROVIDERS: PCP Family Medicine; Visit Provider Surgery
PROC: (CPT 36561; principal; 2019-10-24 07:30)
DX: C18.9 Malignant neoplasm of colon, unspecified (principal); C77.9 Secondary and unspecified malignant neoplasm of lymph node, unspecified; Z90.49 Acquired absence of other specified parts of digestive tract; I10 Essential (primary) hypertension; I47.1 Supraventricular tachycardia; Z87.891 Personal history of nicotine dependence; Z79.899 Other long term (current) drug therapy; Z80.0 Family history of malignant neoplasm of digestive organs
CPT/HCPCS: 36561; 77001; 87635; A9270; C1788; C9803; J1644; J2405; J2704; J3010; J7030; J7120; U0003

== ENCOUNTER 2019-10-25 07:52 | Outpatient (CLI) | payer MEDICARE, SELFPAY ==
--- NOTE | ~2019-10-25 | PE_ITS ---
EXAMINATION: PET skull to mid thigh DATE: 10/25/2019 09:47 INDICATION: Malignant neoplasm of the ascending colon status post right hemicolectomy on 09/22/2019 TECHNIQUE: Blood glucose level was 103 mg/dL. 9.009 mCi of 18-fluorodeoxyglucose (18-FDG) was adminis tered i.v. Low dose computed tomography (CT) images were acquired from the base of the brain to the p roximal thighs for attenuation correction and anatomic localization. Positron emission tomography (PE T) images were acquired in the same distribution beginning 61 minutes after injection. The dose-lengt h product (DLP) was 480.34 mGy-cm. COMPARISON: CT, 08/29/2019 FINDINGS: Head/neck: There is mild right tonsillar enlargement compared to the left with associated abnormal FD G uptake and SUV max of 4.3. There are no pathologically enlarged lymph nodes. Changes in the globes are likely from ocular lens surgery. Chest: No abnormal FDG uptake is identified. A left subclavian Port-A-Cath of the left chest wall end s with its tip in the superior vena cava. There is mild dependent atelectasis. No pleural effusion or pneumothorax is identified. No pathologically enlarged thoracic lymph nodes are identified. The hear t size is normal. Abdomen/pelvis/proximal thighs: There is focal FDG uptake at the surgical site with an SUV max of 4.1 . Physiologic FDG uptake is present in the urinary tract. The small hypoattenuating liver lesion desc ribed on the comparison CT is not identified. Punctate calcifications in an otherwise normal spleen l ikely represent healed granulomatous disease. Pancreas, gallbladder, adrenal glands, and kidneys are normal. No pathologically enlarged abdominal or pelvic lymph nodes are identified. There is no free i ntraperitoneal gas or evidence of bowel obstruction. There is calcified atherosclerosis of the aorta and many of the other arteries. Colonic diverticulosis is present without evidence of diverticulitis. Musculoskeletal: No abnormal FDG uptake is identified. There is moderate cervical and severe lumbar s pondylosis. IMPRESSION: 1. Focal FDG uptake at the surgical site which could be postoperative inflammatory change versus mini mal residual neoplasm. 2. Mild right tonsillar enlargement with abnormal FDG uptake, reactive/inflammatory versus malignancy . Recommend direct visualization. Reviewed, dictated and finalized at location A. IMPRESSION: 1. Focal FDG uptake at the surgical site which could be postoperative inflammat ory change versus minimal residual neoplasm. 2. Mild right tonsillar enlargement with abnormal FDG uptake, reactive/inflamma tory versus malignancy. Recommend direct visualization.
[2019-10-25 08:17] LABS: Glucose Point of Care 103 (65-105)
== END 2019-10-25 07:53 | disposition home or self-care (01) ==
PROVIDERS: PCP Family Medicine; Visit Provider Internal Medicine Hematology & Oncology
DX: C18.2 Malignant neoplasm of ascending colon (principal)
CPT/HCPCS: 78815; A9552

== ENCOUNTER 2019-11-09 03:24 | Observation (INO) | payer MEDICARE, SELFPAY ==
[2019-11-09] VITALS (14 sets, daily range): BP systolic 123–178; BP diastolic 59–88; PULSE 77–99; RESP 16–20; TEMP 36.2–36.9; O2SAT 95–100; BMI 24.5
--- NOTE | ~2019-11-09 | XR_ITS ---
EXAMINATION: XR fl guide central line place EXAM DATE: 11/10/2019 11:58 INDICATION: Central line placement. TECHNIQUE: Fluoroscopy used during XR fl guide central line place performed by Dr. Edith Medrano. The DAP for this procedure was 0.17 mGym2. FINDINGS: There is a right-sided portacatheter. Tip overlies SVC at level of the brian. Correlate with procedure note. IMPRESSION: Fluoroscopy used during XR fl guide central line place. Reviewed, dictated and finalized at location B.
--- NOTE | ~2019-11-09 | XR_ITS ---
EXAMINATION: XR chest port-a-cath/central DATE: 11/10/2019 12:37 INDICATION: Port placement. TECHNIQUE: A single frontal view of the chest was obtained. COMPARISON: Chest 2 views 11/09/2019 FINDINGS: Calcified bilateral lung nodules and calcified hilar and mediastinal lymph nodes are consis tent with old granulomatous disease. No pleural effusion or pneumothorax. The heart size is normal. T here is a right internal jugular port with tip in superior vena cava. IMPRESSION: 1. Port tip in superior vena cava. Reviewed, dictated and finalized at location A.
--- NOTE | ~2019-11-09 | XR_ITS ---
EXAMINATION: XR chest 2V EXAM DATE: 11/09/2019 07:50 INDICATION: Shortness of breath. Chest heaviness, improving. TECHNIQUE: Frontal and lateral projections of the chest obtained and reviewed. Comparison is made to prior examination from 10/24/2019. FINDINGS: There is a left-sided portacatheter. The catheter is severely impinged at the 1st rib clav icular junction, diameter is narrower than on prior study. Over time, this can lead to catheter fati solomon and fracture. This catheter tip is overlying the brachiocephalic junction. The lungs are clear. There are no pleural effusions. The cardiomediastinal silhouette is within nor mal limits. There is no pneumothorax suspected. There is moderate thoracolumbar dextroscoliosis. IMPRESSION: 1. No acute cardiopulmonary findings. 2. Severe left-sided portacatheter tube impingement, at risk for fatigue and fracture. Recommend con sulting Dr. Medrano, who inserted catheter on 10/24/2019. Reviewed, dictated and finalized at location B. IMPRESSION: 1. No acute cardiopulmonary findings. 2. Severe left-sided portacatheter tube impingement, at risk for fatigue and f racture. Recommend consulting Dr. Medrano, who inserted catheter on 10/24/2019.
--- NOTE | 2019-11-09 03:40 | ECG_ITS ---
Measurements Intervals [place] Rate: 77 P: 43 NC: 128 QRS: 40 QRSD: 83 T: 37 QT: 362 QTc: 411 Interpretive Statements SINUS RHYTHM ST ELEVATION IN DIFFUSE LEADS, CONSIDER PERICARDITIS, INJURY OR EARLY REPOLARIZATION PEAKED T WAVES- CONSIDER HYPERKALEMIA OR ISCHEMIA BASELINE ARTIFACT- I, II, AVR ABNORMAL ECG Electronically Signed On 11-09-2019 7:17:13 CDT by Burton Sierra D.O.
[2019-11-09] MEDS: ASPIRIN 81 MG CHEWABLE TABLET 324 MG PO (03:47)
--- NOTE | 2019-11-09 03:47 | ECG_ITS ---
Measurements Intervals [place] Rate: 81 P: 38 MT: 143 QRS: 35 QRSD: 90 T: 36 QT: 391 QTc: 457 Interpretive Statements SINUS RHYTHM EARLY PRECORDIAL R/S TRANSITION ST ELEVATION IN DIFFUSE LEADS- CONSIDER PERICARDITIS, INJURY OR EARLY REPOLARIZATION BASELINE ARTIFACT- I, II, AVR ABNORMAL ECG Electronically Signed On 11-09-2019 7:18:47 CDT by Burton Sierra D.O.
[2019-11-09 03:51] LABS: Basophils Percent Auto 0.4 % (0.2-1.2); Eosinophils Percent Auto 0.2 % (0-4.4); Hematocrit 36.2 % (37.0-47.0); Hemoglobin 11.7 g/dL (12.0-15.0); Immature Granulocyte Absolute 0.01 K/mm3 (0.00-0.031); Immature Granulocyte Percent A 0.2 % (0-0.5); Lymphocytes Absolute Auto 0.87 K/mm3 (0.9-3.2); Lymphocytes Percent Auto 19.2 % (18.3-44.2); Mean Corpuscular HGB Conc 32.3 g/dl (32-36); Mean Corpuscular Hemoglobin 27.4 pg (26-34); Mean Corpuscular Volume 84.8 fl (80-100); Mean Platelet Volume 9.6 fl (7.4-10.4); Monocytes Absolute Auto 0.4 K/mm3 (0.1-0.6); Monocytes Percent Auto 9.5 % (2.6-8.5); Neutrophils Absolute Auto 3.2 K/mm3 (1.3-6.7); Neutrophils Percent Auto 70.5 % (45.5-73.1); Platelet Count Result 268 k/mm3 (150-375); Red Blood Count 4.27 M/mm3 (4.2-5.4); Red Cell Distribution Width 14.7 % (11.5-14.5); White Blood Count 4.5 K/mm3 (4.5-10.0)
--- NOTE | 2019-11-09 03:52 | ED.CHESTPAIN ---
HPI - Chest Pain General Chief Complaint: Chest Pain Stated Complaint: chest pain Time Seen by Provider: 11/09/19 03:30 Source: patient Mode of arrival: ambulatory Limitations: no limitations History of Present Illness HPI narrative: This patient is an 84 year old female who presents for evaluation of chest heaviness starting at 10 30 last night. She reports she only has the pain when she lays flat. The pain resolves when she sits up. She denies cough, fever, chills, or sob. She started chemotherapy on Thursday for the first time for colon cancer. Her oncologist is Dr. Chapa. complaint: chest heaviness Related Data Home Medications Medication Instructions Recorded Confirmed Move Free [employer] 1 tablet PO DAILY 08/18/19 11/07/19 Vitamin D3 100 mcg PO DAILY 08/18/19 11/07/19 ibuprofen 200 mg tablet 200 mg PO Q6H PRN 10/10/19 11/07/19 hydrocodone-acetaminophen 11/09/19 Allergies Allergy/AdvReac Type Severity Reaction Status Date / Time No Known Allergies Allergy Mild Verified 11/09/19 03:46 Review of Systems Review of Systems: All systems reviewed & are unremarkable except as noted in HPI and below Constitutional: Constitutional: Denies chills and Denies fever(s) ENT: Denies dizziness Cardiovascular: Cardiovascular: Reports chest pain, Denies rapid heart rate and Denies radiating jaw, neck or arm pain Respiratory: Respiratory: Denies cough and Denies dyspnea Gastrointestinal: Gastrointestinal: Denies abdominal pain, Reports nausea and Reports vomiting PMF Past Medical History Medical History (Updated 11/09/19 @ 07:35 by Sandra Lundy MD) Adenomatous colon polyp Bowel habit changes Chronic low back pain without sciatica Dyslipidemia Essential (primary) hypertension Fibromyalgia GERD (gastroesophageal reflux disease) Hiatal hernia Idiopathic peripheral neuropathy 04/06/2014 Peripheral neuropathy Raynauds phenomenon Unspecified osteoarthritis, unspecified site Surgical History Surgical History History of appendectomy 02/03/1969 History of total hysterectomy 07/25/1980 Social History Social History Smoking packs per day: 1 Smoking cigarettes per day: 20.0 Years smoked: 15 Smoking pack-years: 15.00 Smoking status: Former smoker Tobacco type: cigarettes Second hand tobacco smoke exposure: No Smoking end date: 10/23/71 Alcohol intake: never Substance use: never Substance use type: does not use Gender identity (if verbalized by the patient): Female Spiritual care concerns: Yes (Jehovah Witness) Exam Const: General: alert Nutritional Appearance: thin Orientation/consciousness: patient oriented x3 Chest: Chest palpation & inspection: tenderness (left sternal chest tenderness) Other: left port a cath accessed Resp: Effort & Inspection: normal respiratory effort and no retractions Auscultation: clear to auscultation bilaterally Cardio: Rate: regular rate Rhythm: regular rhythm Heart sounds: no murmurs GI: GI Palp: Yes Soft to palpation, No Tenderness to palpation present (GI) and No Guarding due to palpation present (GI) Skin: General skin exam: normal color Rashes: no rashes Neuro: General: patient oriented x3 and moves all extremities Course Course Emergency Course: Patient presented with chest heaviness. Patient was sitting up in bed most of ER visit so she has no chest heaviness. I think its unlikely this is acute [place]. EKG shows repolarization. possible pericarditis. I Spoke with Dr. chapa who agrees patient can take NSAIDs . PAtient's daughter was concerned about taking aspirin Vital Signs Vital signs: Vital Signs Temperature 98.3 F 11/09/19 03:27 Pulse Rate 79 11/09/19 03:27 Respiratory Rate 20 11/09/19 03:27 Blood Pressure 156/63 H 11/09/19 03:27 Pulse Oximetry 96 11/09/19 03:27
[2019-11-09 03:59] LABS: INR 1.1; Prothrombin Time 13.4 Seconds (11.1-14.7)
[2019-11-09 04:00] LABS: Partial Thromboplastin Time 27.3 SECONDS (22.3-36.8)
[2019-11-09 04:01] LABS: Anion Gap 11 mmol/L (8-16); Blood Urea Nitrogen 19 mg/dL (7-17); Calcium 9.5 mg/dL (8.4-10.2); Carbon Dioxide 27 mmol/L (22-30); Chloride 97 mmol/L (98-107); Estimated Glomerular Filt Rate 60; Glucose 137 mg/dL (65-105); Potassium 3.6 mmol/L (3.4-5.0); Sodium 135 mmol/L (137-145)
[2019-11-09 04:14] LABS: Troponin I < 0.012 ng/mL (0.000-0.034)
[2019-11-09] MEDS: IBUPROFEN 600 MG TABLET PO ×3 (05:36→21:35)
--- NOTE | 2019-11-09 05:56 | PC.NURSE ---
Pt. receiving active chemo infusions via pump. Pt's. pump continues to alarm. this RN and JOSE Mckeon both assessed the pump, yet it continues to alarm. Called new site infusion center line and the infusion center nurse should arrive in the ED at 0615 11/09/19. RN to call at that time.
--- NOTE | 2019-11-09 06:48 | PC.NURSE ---
Pt attempting to urinate at this time. unable to transport pt. upstairs. IMU JOSE Hurst, made aware
--- NOTE | 2019-11-09 07:00 | ADMGEN ---
This patient, Shira Wynn, was admitted to IMU Room 232-01. Patient/family oriented to hospital policies and general routines including ID bracelet, bed and alarms, visiting hours, pain management, procedures, bathroom and other care routines, personal items, smoking policy, room service/diet, and visiting hours. Valuables list has been completed. Information on how to activate the Rapid Response Team has been discussed. Patient/Family are encouraged to report perceived risks to care and to ask questions if they do not understand what they are told or what they should do. report from santana arrived at 0700
[2019-11-09 07:11] LABS: Troponin I 0.031 ng/mL (0.000-0.034)
--- NOTE | 2019-11-09 09:00 | PM.IMHP ---
H&P: HPI History of Present Illness Date/Time: 11/09/19 09:00 Chief complaint: chest heaviness Narrative: Shira Wynn is a 84 year old female with history of HTN, dyslipidemia, and recent diagnosis right colon adenocarcinoma s/p laparoscopic colectomy on 09/22/[address] Medrano who presented to the ED early this morning (11/08) with complaints of chest pain that started overnight. Patient states she went to lie down for bed when she started feeling chest pain/pressure. She has a hard time describing the pain, but eventually describes it as a heavy pressure , midsternal and radiating to both sides of her neck. She notes that sitting up relieved her pain. She does not think she took anything at home for her pain, but notes she took 4 baby aspirins in the ER and is unsure if this helped her pain. At it's worse, she rated the pain 6/10, but currently, sitting up in her chair, she has no pain. She notes one episode of nausea and vomiting (nonbloody, no coffee ground emesis) shortly prior to arrival to ED. Denies any other associated symptoms like dizziness/lightheadedness, sweats, or shortness of breath. No pain with deep inspiration. No cough, nor hemoptysis. She has never had this pain before. She notes she had recent chemotherapy treatment Thursday with Dr. Chapa for her colon cancer and has a current chemo pump running. Upon questioning, patient denies current f/c/s, myalgias/arthralgias, headaches, dizziness, lightheadedness, changes in v/h, sudden blindness, current cp/palpitations, sob/cough, current n/v/d/c, abd pain, changes in BMs, melena, BRBPR, dysuria, hematuria, cloudy urine, calf pain/swelling. She denies ever having a history of blood clots in the past. In the ED, vital signs were stable, patient afebrile, and ECG results read as early precordial r/s transition, and ST elevation in diffuse leads - consider pericarditis, injury or early repolarization . Troponins negative thus far. Pericarditis was suspected and patient was given ibuprofen 600 mg PO once in the ED. Patient admitted under this setting. Of note, CXR read as no acute cardiopulmonary findings and severe left-sided portacatheter tube impingement, at risk for fatigue and fracture. Recommend consulting Dr. Medrano, who inserted catheter on 10/24/[address] Chapa was consulted from the ED. Review of Systems Review of Systems: All systems reviewed & are unremarkable except as noted in HPI and below PMFSH Past Medical History Medical History Adenomatous colon polyp Bowel habit changes Chronic low back pain without sciatica Dyslipidemia Essential (primary) hypertension Fibromyalgia GERD (gastroesophageal reflux disease) Hiatal hernia Idiopathic peripheral neuropathy 04/06/2014 Peripheral neuropathy Raynauds phenomenon Unspecified osteoarthritis, unspecified site Surgical History Surgical History History of appendectomy 02/03/1969 History of carpal tunnel release History of colectomy 09/22/[address] Medrano; right sided with anastamosis History of total hysterectomy 07/25/1980 Family History Family History Mother Carcinoma of colon Father Acute myocardial infarction Social History Social History Social History: Patient lives at home with , Prateek, whom she designates her surrogate MDM. She wishes daughter Saida to be 2nd surrogate MDM. She wishes to be a Full code. She does not wish to receive any blood products as she is Jehovah Witness. Her PCP is Dr. Higgins Smoking packs per day: 0.5 Smoking cigarettes per day: 10.0 Years smoked: 15 Smoking pack-years: 7.50 Smoking status: Former smoker Tobacco type: cigarettes Second hand tobacco smoke exposure: No Smoking end date: 10/23/71 Alcohol intake: never Subs
[2019-11-09 10:02] LABS: Troponin I 0.034 ng/mL (0.000-0.034)
[2019-11-09] MEDS: HEPARIN SOD FLUSH 500 UNITS/5 ML SYRINGE IV PUSH (10:34)
--- NOTE | 2019-11-09 11:42 | PM.CNGS ---
Assessment and Plan Assessment and plan (1) Chest pain: Qualifiers: Chest pain type: unspecified Qualified Code(s): R07.9 - Chest pain, unspecified Code(s): R07.9 - Chest pain, unspecified Status: Acute Assessment and Plan: Chest pain could be due to Chemotherapy infusion or possible pericarditis electrical abnormalities seen on EKG. I reviewed the CXR from this AM. With the impingement/angulation seen on the CXR, she will require removal and replacement of Portacath. While the port is currently functioning, this appears to be high risk for fracture of catheter tubing. Patient has eating already this AM, therefore, will plan for procedure to be done tomorrow. I discussed the procedure, risks, benefits, and alternatives. Questions answered. (2) Colon cancer: Code(s): C18.9 - Malignant neoplasm of colon, unspecified Status: Acute (3) Encounter for care related to Port-a-Cath: Code(s): Z45.2 - Encounter for adjustment and management of vascular access device Status: Acute History of Present Illness Consult details Consult date: 11/09/19 Reason for consult: other (Malpositioned Port-A-Cath) Requesting physician: Diallo Clark PA-C Narrative: this is an 84-year-old woman who was admitted this morning with chest pain. She is status post hand assisted laparoscopic right hemicolectomy and Port-A-Cath placement. She just started chemotherapy within the last few days and was noticing a significant amount of chest pressure and pain when laying supine. If she sat up her pain did seem to improve. The port was able to be accessed and aspirated and flushed without any evidence of occlusion. A chest x-ray was done this morning and this showed evidence severe angulation of the catheter tubing between the clavicle and 1st rib. Review of Systems Review of Systems: All systems reviewed & are unremarkable except as noted in HPI and below Constitutional: Constitutional: Denies chills and Denies fever(s) Cardiovascular: Cardiovascular: Reports as per HPI and Reports chest pain Respiratory: Respiratory: Denies cough and Denies dyspnea Gastrointestinal: Gastrointestinal: Denies abdominal pain PMFSH Past Medical History Medical History Adenomatous colon polyp Bowel habit changes Chronic low back pain without sciatica Dyslipidemia Essential (primary) hypertension Fibromyalgia GERD (gastroesophageal reflux disease) Hiatal hernia Idiopathic peripheral neuropathy 04/06/2014 Peripheral neuropathy Raynauds phenomenon Unspecified osteoarthritis, unspecified site Surgical History Surgical History History of appendectomy 02/03/1969 History of carpal tunnel release History of colectomy 09/22/[address] Medrano; right sided with anastamosis History of total hysterectomy 07/25/1980 Family History Family History Mother Carcinoma of colon Father Acute myocardial infarction Social History Social History Social History: Patient lives at home with , Prateek, whom she designates her surrogate MDM. She wishes daughter Saida to be 2nd surrogate MDM. She wishes to be a Full code. She does not wish to receive any blood products as she is Jehovah Witness. Her PCP is Dr. Higgins Smoking packs per day: 0.5 Smoking cigarettes per day: 10.0 Years smoked: 15 Smoking pack-years: 7.50 Smoking status: Former smoker Tobacco type: cigarettes Second hand tobacco smoke exposure: No Smoking end date: 10/23/71 Alcohol intake: never Substance use: never Substance use type: does not use Gender identity (if verbalized by the patient): Female Spiritual care concerns: No Meds Home Medications and Allergies Home Medications Medication
[2019-11-09] MEDS: lisinopriL 20 MG TABLET PO (12:24)
[2019-11-09] MEDS: CHOLECALCIFEROL 1,000 UNITS TABLET 4000 UNITS PO (12:25)
--- NOTE | 2019-11-09 15:25 | ECHO_ITS ---
Patient Info Name: Shira Wynn Age: 84 years : 1935 Gender: Female Ht: 66 in Wt: 152 lbs BSA: 1.80 m2 HR: 92 bpm BP: 148 / 68 mmHg Heart Rhythm: Sinus Rhythm Technical Quality: Good Exam Date: 11/09/2019 4:11 PM Exam Location: [facility] Pulmonary Patient Status: Inpatient Admit Date: 11/09/2019 Staff Ordering Physician: Sandra Lundy MD Water/Wastewater Engineer: Cesar Portillo RDCS Attending Provider: Diallo Clark PA-C Referring Physician: Kamron JOAQUIN; Exam Type: CA echo doppler color flow Study Info Indications R07.9 - Chest pain, unspecified Complete two-dimensional, color flow and Doppler transthoracic echocardiogram is performed. Strain analysis performed. History/Risk Factors Chest pressure s/p chemotherapy treatment. Summary 1. Technically difficult study with limited views. 2. Left ventricular systolic function is normal, estimated at 60-65%. 3. There is mildly increased left ventricular wall thickness. 4. The left ventricular diastolic function is grade I diastolic dysfunction. 5. The mitral valve annulus is moderately calcified. 6. There is mild aortic valve stenosis with a peak velocity of 187 cm/s, mean gradient of 7 mmHg, and aortic valve area of 1.9 cm2. 7. The pericardium is not well visualized. No significant pericardial effusion observed. Left Ventricle Left ventricular chamber dimension is normal. Left ventricular systolic function is normal, estimated at 60-65%. There is mildly increased left ventricular wall thickness. The left ventricular diastolic function is grade I diastolic dysfunction. Global longitudinal strain is mildly elevated at -15 %. Technically difficult study with limited views. Right Ventricle Right ventricular chamber dimension is normal. Right ventricular systolic function is normal. Left Atria Left atrial chamber dimension is normal. Right Atria Right atrial chamber dimension is normal. Aortic Valve The aortic valve is not well visualized. There is mild aortic valve stenosis with a peak velocity of 187 cm/s, mean gradient of 7 mmHg, and aortic valve area of 1.9 cm2. There is no aortic valve regurgitation. There is moderate aortic valve calcification. Pulmonic Valve The pulmonic valve is not well visualized. Mitral Valve The mitral valve has thickened leaflets. There is trace mitral valve regurgitation. The mitral valve annulus is moderately calcified. Tricuspid Valve The tricuspid valve leaflets are normal. Pericardium/Pleural The pericardium is not well visualized. No significant pericardial effusion observed. Aorta The aortic root size at the sinus of Valsalva is normal. Left Ventricular Outflow Tract Name Value Normal LVOT 2D LVOT Diameter 1.9 cm LVOT Doppler LVOT Peak Gradient 6 mmHg LVOT Mean Gradient 3 mmHg LVOT VTI 22 cm LVOT VTI/AV VTI Ratio 0.7 LVOT Stroke Volume 58 ml LVOT CO 5.2 l/min LVOT CI
--- NOTE | 2019-11-09 17:03 | WPDANESEPP ---
Anes - Eval Pre Procedure Procedure: Operation Date: 11/10/19 10:45 Proposed Procedures p Removal and Replacement of Portacath - Edith Damon Medrano MD Date/Time: 11/09/19 17:03 Pre Op Diagnosis: chest heaviness Patient Data Age: 84 Gender: F Height: 5 ft 6 in Weight: 69.1 kg Last Vital Signs Temp 97.6 F 11/09/19 08:00 Pulse 97 11/09/19 16:00 Resp 18 11/09/19 08:00 BP 148/68 H 11/09/19 08:00 Pulse Ox 100 11/09/19 08:00 Allergies Allergy/AdvReac Type Severity Reaction Status Date / Time No Known Allergies Allergy Mild Verified 11/09/19 03:46 Home Medications Medication Instructions Recorded Confirmed Type quinapril 20 mg tablet 20 mg PO DAILY #90 tablet 07/04/19 11/09/19 Rx tramadol 50 mg tablet 50 mg PO Q8H PRN #90 tablet 08/16/19 11/09/19 Rx Move Free [employer] 1 tablet PO DAILY 08/18/19 11/09/19 History Vitamin D3 100 mcg PO DAILY 08/18/19 11/09/19 History polyethylene glycol 3350 17 17 gm PO DAILY #119 gm 09/05/19 11/09/19 Rx gram/dose oral powder ibuprofen 200 mg tablet 200 mg PO Q6H PRN 10/10/19 11/09/19 History hydrocodone-acetaminophen 1 tablet PO Q6H PRN 11/09/19 11/09/19 History lidocaine-prilocaine 1 g TOPICAL PRN 11/09/19 11/09/19 History meloxicam 15 mg PO DAILY 11/09/19 11/09/19 History prochlorperazine maleate 10 mg PO Q6H PRN 11/09/19 11/09/19 History Laboratory Tests 11/09/19 11/09/19 11/09/19 03:42 03:42 03:42 WBC 4.5 K/mm3 K/mm3 (4.5-10.0) RBC 4.27 M/mm3 M/mm3 (4.2-5.4) Hgb 11.7 g/dL L g/dL (12.0-15.0) Hct 36.2 % L % (37.0-47.0) MCV 84.8 fl fl (80-100) MCH 27.4 pg pg (26-34) MCHC 32.3 g/dl g/dl (32-36) RDW 14.7 % H % (11.5-14.5) Plt Count 268 k/mm3 k/mm3 (150-375) MPV 9.6 fl fl (7.4-10.4) Immature Gran % (Auto) 0.2 % % (0-0.5) Neut % (Auto) 70.5 % % (45.5-73.1) Lymph % (Auto) 19.2 % % (18.3-44.2) [place] % (Auto) 9.5 % H % (2.6-8.5) Eos % (Auto) 0.2 % % (0-4.4) Baso % (Auto) 0.4 % % (0.2-1.2) Lymph # (Auto) 0.87 K/mm3 L K/mm3 (0.9-3.2) [place] # (Auto) 0.4 K/mm3 K/mm3 (0.1-0.6) Eos # (Auto) 0.0 K/mm3 K/mm3 (0-0.3) Baso # (Auto) 0.0 K/mm3 K/mm3 (0.0-0.1) Abs Immat Gran (auto) 0.01 K/mm3 K/mm3 (0.00-0.031) Absolute Neuts (auto) 3.2 K/mm3 K/mm3 (1.3-6.7) Absolute Nucleated RBC 0.0 K/mm3 K/mm3 (0.0-0.012) Nucleated RBC % 0.0 % % (0.0-0.2) PT 13.4 Seconds Seconds (11.1-14.7) INR 1.1 APTT 27.3 SECONDS SECONDS (22.3-36.8) Sodium 135 mmol/L L mmol/L (137-145) Potassium 3.6 mmol/L mmol/L (3.4-5.0) Chloride 97 mmol/L L mmol/L (98-107) Carbon Dioxide 27 mmol/L mmol/L (22-30) Anion Gap 11 mmol/L mmol/L (8-16) BUN 19 mg/dL H mg/dL (7-17) Creatinine 0.90 mg/dL mg/dL (0.7-1.0) Estim Creat Clear Calc Not Reportable Estimated GFR 60 (59 - ) Glucose 137 mg/dL H mg/dL (65-105) Calcium 9.5 mg/dL mg/dL (8.4-10.2) Troponin I < 0.012 ng/mL ng/mL (0.000-0.034) 11/09/19 11/09/19 06:41 09:29 WBC RBC Hgb Hct MCV MCH MCHC RDW Plt Count MPV Immature Gran % (Auto) Neut % (Auto) Lymph % (Auto) [place] % (Auto) Eos % (Auto) Baso % (Auto) Lymph # (Auto) [place] # (Auto) Eos # (Auto) Baso # (Auto) Abs Immat Gran (auto) Absolute Neuts (auto) Absolute Nucleated RBC Nucleated RBC % PT INR APTT Sodium Potassium Chloride Carbon Dioxide Anion Gap
--- NOTE | 2019-11-09 17:24 | PM.CNCAR ---
Assessment and Plan Assessment and plan (1) Chest pain: Qualifiers: Chest pain type: unspecified Qualified Code(s): R07.9 - Chest pain, unspecified Code(s): R07.9 - Chest pain, unspecified Status: Acute Assessment and Plan: Clinically, symptoms appear consistent with pericarditis with evidence of diffuse J-point elevation, ND depression which is new as well as possible soft 2 component friction rub. 2D echocardiogram pending. Clinical response favorable thus far with ibuprofen. Continue 600 mg q.8 hour period tapering doses over at least the next 2 weeks anticipated provided she continues to respond appropriately. Discussed addition of colchicine, however, given side effect profile they were concerned about tolerance particular as she just started chemotherapy. Will hold off on the symptoms persist. Although expected to be elevated given her clinical status will check sedimentation rate more as a reference. Recheck troponin in a.m.. Thus far negative although upper trending to 0.034. Symptoms are highly atypical for myocardial ischemia, positional and responsive to NSAIDs. I would avoid dedicated steroids for pericarditis. Chest pain possibly related to chemotherapy, port malfunction/impingement, although less likely. (2) Essential (primary) hypertension: Code(s): I10 - Essential (primary) hypertension Status: Chronic Assessment and Plan: remains significantly hypertensive. Increase antihypertensive if remains high. Pain and NSAID therapy can exacerbate. (3) Colon adenocarcinoma: Code(s): C18.9 - Malignant neoplasm of colon, unspecified Status: Acute Assessment and Plan: For primary and Surgical Service. Plan for port revision per surgery. recently started on FOLFIRI by Dr. Chapa. (4) S/P colectomy: Code(s): Z90.49 - Acquired absence of other specified parts of digestive tract Status: Acute Assessment and Plan: As above History of Present Illness History of Present Illness Consult date/time: Date of service: 11/09/19 17:24 Cardiology consultation the request of EULOGIO Lucas for our opinion regarding chest pain and abnormal EKG. Requesting physician: Diallo Clark PA-C Consult reason: chest pain Reason For Visit: chest heaviness Narrative: patient is a very pleasant 84-year-old female with a history of hypertension, dyslipidemia an adenocarcinoma recently diagnosed in the right colon now status post laparoscopic colectomy 09/22/2019 who was admitted earlier today after developing chest heaviness across the left and right radiating towards the fact worse lying down improve sitting up. Chest pain also radiates to her neck. Twelve lead EKG revealed diffuse J-point elevation which is different than prior tracings. She was started on 600 mg ibuprofen q.8 hours which has significantly helped her chest pain. She denies exacerbation with deep breathing. She has never had pericarditis or cardiac problems in the past side from recent diagnosis of SVT. she denies palpitations, shortness of breath, fevers, chills. Had an episode of nausea and vomiting prior to presentation. She began adjuvant chemotherapy on Thursday with FOLFIRI. she states the following evening while lying down she can to experience chest pain improved with sitting up. Symptoms are significantly improved after beginning ibuprofen but not completely resolved when she lies down. She has no specific complaints at this time. Denies hemoptysis, melena, bright red blood per rectum. Review of Systems Review of Systems: All systems reviewed & are unremarkable except as noted in HPI and below Constitutional: Constitutional: Reports as per HPI, Reports no additional constitutional complaints and Reports weakness Eyes: Eyes: Reports as per HPI and Reports no additional eye complaints ENT: Reports system reviewed and no additional complaints, except as documented an
--- NOTE | 2019-11-09 18:00 | PDONCCN ---
HPI - Date of Consult Date/Time: 11/09/19 18:00 Requesting Physician: Diallo Clark PA-C Primary Care Provider: Michael Higgins MD - Consult Narrative Reason for consult: Stage III colon cancer Narrative: Shira Wynn is a 84 year old female This is a pleasant 84-year-old female who was diagnosed to have stage IIIB adenocarcinoma of colon status post right-sided hemicolectomy in September of 2019. She started adjuvant chemotherapy with FOLFIRI regimen on November 07, 2019. She came into the hospital with complain of chest discomfort which gets better when she sits up. He denies any shortness of breath. She has active chemotherapy with 5 FU pump. She denies any bleeding and bruising. Patient had 1 episode of nausea and vomiting. Denies any fevers and chills. No other new complaints. Review of Systems - Review of Systems All systems reviewed & are unremarkable except as noted in HPI and bel - Neurologic Reports system reviewed and no additional complaints, except as documented, Reports weakness PMFSH Medical History: Medical History (Last Reviewed 11/09/19 @ 18:03 by Hardik Chapa MD) Adenomatous colon polyp Bowel habit changes Chronic low back pain without sciatica Dyslipidemia Essential (primary) hypertension Fibromyalgia GERD (gastroesophageal reflux disease) Hiatal hernia Idiopathic peripheral neuropathy 04/06/2014 Peripheral neuropathy Raynauds phenomenon Unspecified osteoarthritis, unspecified site Surgical History: Surgical History (Last Reviewed 11/09/19 @ 18:03 by Hardik Chapa MD) History of appendectomy 02/03/1969 History of carpal tunnel release History of colectomy 09/22/[address] Medrano; right sided with anastamosis History of total hysterectomy 07/25/1980 Family History: Family History (Last Reviewed 11/09/19 @ 18:03 by Hardik Chapa MD) Mother Carcinoma of colon Father Acute myocardial infarction - Social History Social History: Social History (Last Reviewed 11/09/19 @ 17:29 by Tito Valdez MD) Gender Identity: Gender identity (if verbalized by the patient): Female Alcohol Use: Alcohol intake: never Substance Use: Substance use: never Substance use type: does not use Others: Spiritual care concerns: No Smoking Status: Smoking status: Former smoker Tobacco type: cigarettes Second hand tobacco smoke exposure: No Smoking end date: 10/23/71 Smoking Pack-years: Smoking packs per day: 0.5 Smoking cigarettes per day: 10.0 Years smoked: 15 Smoking pack-years: 7.50 Meds Home Medications Medication Instructions Recorded Confirmed Type quinapril 20 mg tablet 20 mg PO DAILY #90 tablet 07/04/19 11/09/19 Rx tramadol 50 mg tablet 50 mg PO Q8H PRN #90 tablet 08/16/19 11/09/19 Rx Move Free Joint Health 1 tablet PO DAILY 08/18/19 11/09/19 History Vitamin D3 100 mcg PO DAILY 08/18/19 11/09/19 History polyethylene glycol 3350 17 17 gm PO DAILY #119 gm 09/05/19 11/09/19 Rx gram/dose oral powder ibuprofen 200 mg tablet 200 mg PO Q6H PRN 10/10/19 11/09/19 History hydrocodone-acetaminophen 1 tablet PO Q6H PRN 11/09/19 11/09/19 History lidocaine-prilocaine 1 g TOPICAL PRN 11/09/19 11/09/19 History meloxicam 15 mg PO DAILY 11/09/19 11/09/19 History prochlorperazine maleate 10 mg PO Q6H PRN 11/09/19 11/09/19 History Allergies Allergy/AdvReac Type Severity Reaction Status Date / Time No Known Allergies Allergy Mild Verified 11/09/19 03:46 Results - Labs CBC & Chem 7: 11/09/19 03:42 11/09/19 03:42 Labs: Short CBC 11/09/19 Range/Units 03:42 WBC 4.5 (4.5-10.0) K/mm3 Hgb 11.7 L (12.0-15.0) g/dL Hct 36.2 L (37.0-47.0) % Plt Count 268 (150-375) k/mm3 BMP 11/09/19 03:42 Sodium 135 L Potassium 3.6 Chloride 97 L Carbon Dioxide 27 BUN 19 H Creatinine 0.90 Glucose 137 H Calcium 9.5 Cardiac Enzymes 11/09/19
[2019-11-10] VITALS (17 sets, daily range): BP systolic 104–154; BP diastolic 62–75; PULSE 80–119; RESP 14–20; TEMP 35.9–37.4; O2SAT 95–100
[2019-11-10 05:28] LABS: Basophils Percent Auto 0.5 % (0.2-1.2); Hematocrit 34.9 % (37.0-47.0); Hemoglobin 11.4 g/dL (12.0-15.0); Lymphocytes Absolute Auto 0.95 K/mm3 (0.9-3.2); Lymphocytes Percent Auto 24.9 % (18.3-44.2); Mean Corpuscular HGB Conc 32.7 g/dl (32-36); Mean Corpuscular Hemoglobin 27.3 pg (26-34); Mean Corpuscular Volume 83.5 fl (80-100); Mean Platelet Volume 9.7 fl (7.4-10.4); Monocytes Absolute Auto 0.3 K/mm3 (0.1-0.6); Monocytes Percent Auto 6.6 % (2.6-8.5); Neutrophils Absolute Auto 2.6 K/mm3 (1.3-6.7); Platelet Count Result 257 k/mm3 (150-375); Red Blood Count 4.18 M/mm3 (4.2-5.4); Red Cell Distribution Width 14.7 % (11.5-14.5); White Blood Count 3.8 K/mm3 (4.5-10.0)
[2019-11-10] MEDS: IBUPROFEN 600 MG TABLET PO ×2 (05:35→13:25)
[2019-11-10 05:42] LABS: Potassium 3.6 mmol/L (3.4-5.0)
[2019-11-10 05:46] LABS: Anion Gap 6 mmol/L (8-16); Blood Urea Nitrogen 19 mg/dL (7-17); CRP < 0.5 mg/dL (<1.0); Calcium 9.4 mg/dL (8.4-10.2); Carbon Dioxide 30 mmol/L (22-30); Chloride 99 mmol/L (98-107); Estimated CRCL calculation 50 ml/min; Estimated Glomerular Filt Rate > 60; Glucose 112 mg/dL (65-105); Magnesium 2.2 mg/dL (1.6-2.3); Sodium 135 mmol/L (137-145)
[2019-11-10 06:02] LABS: Troponin I 0.038 ng/mL (0.000-0.034)
[2019-11-10 06:07] LABS: Erythrocyte Sedimentation Rate 35 mm/hr (0-20)
--- NOTE | 2019-11-10 07:35 | ECG_ITS ---
Measurements Intervals [place] Rate: 93 P: 43 TX: 150 QRS: 32 QRSD: 84 T: 32 QT: 332 QTc: 413 Interpretive Statements SINUS RHYTHM NORMAL ECG Electronically Signed On 11-10-2019 14:41:07 CDT by Burton Sierra D.O.
--- NOTE | 2019-11-10 09:55 | WPDANESEPPF ---
Anes - Initial Pre Proc Eval Procedure: Operation Date: 11/10/19 10:45 Proposed Procedures p Removal and Replacement of Portacath - Edith Damon Medrano MD Date/Time: 11/10/19 09:55 Surgeon: Diallo Clark PA-C Pre Op Diagnosis: chest heaviness Patient Data Age: 84 Gender: F Height: 1.68 m Weight: 64.7 kg Last Vital Signs Temp 37.4 C 11/10/19 09:53 Pulse 91 11/10/19 09:53 Resp 16 11/10/19 09:53 BP 126/68 11/10/19 09:53 Pulse Ox 96 11/10/19 09:53 Allergies Allergy/AdvReac Type Severity Reaction Status Date / Time No Known Allergies Allergy Mild Verified 11/09/19 03:46 Home Medications Medication Instructions Recorded Confirmed Type quinapril 20 mg tablet 20 mg PO DAILY #90 tablet 07/04/19 11/09/19 Rx tramadol 50 mg tablet 50 mg PO Q8H PRN #90 tablet 08/16/19 11/09/19 Rx Move Free Joint Health 1 tablet PO DAILY 08/18/19 11/09/19 History Vitamin D3 100 mcg PO DAILY 08/18/19 11/09/19 History polyethylene glycol 3350 17 17 gm PO DAILY #119 gm 09/05/19 11/09/19 Rx gram/dose oral powder ibuprofen 200 mg tablet 200 mg PO Q6H PRN 10/10/19 11/09/19 History hydrocodone-acetaminophen 1 tablet PO Q6H PRN 11/09/19 11/09/19 History lidocaine-prilocaine 1 g TOPICAL PRN 11/09/19 11/09/19 History meloxicam 15 mg PO DAILY 11/09/19 11/09/19 History prochlorperazine maleate 10 mg PO Q6H PRN 11/09/19 11/09/19 History Laboratory Tests 11/09/19 11/10/19 11/10/19 09:29 05:19 05:19 WBC 3.8 K/mm3 L K/mm3 (4.5-10.0) RBC 4.18 M/mm3 L M/mm3 (4.2-5.4) Hgb 11.4 g/dL L g/dL (12.0-15.0) Hct 34.9 % L % (37.0-47.0) MCV 83.5 fl fl (80-100) MCH 27.3 pg pg (26-34) MCHC 32.7 g/dl g/dl (32-36) RDW 14.7 % H % (11.5-14.5) Plt Count 257 k/mm3 k/mm3 (150-375) MPV 9.7 fl fl (7.4-10.4) Immature Gran % (Auto) 0.0 % % (0-0.5) Neut % (Auto) 68.0 % % (45.5-73.1) Lymph % (Auto) 24.9 % % (18.3-44.2) [place] % (Auto) 6.6 % % (2.6-8.5) Eos % (Auto) 0.0 % % (0-4.4) Baso % (Auto) 0.5 % % (0.2-1.2) Lymph # (Auto) 0.95 K/mm3 K/mm3 (0.9-3.2) [place] # (Auto) 0.3 K/mm3 K/mm3 (0.1-0.6) Eos # (Auto) 0.0 K/mm3 K/mm3 (0-0.3) Baso # (Auto) 0.0 K/mm3 K/mm3 (0.0-0.1) Abs Immat Gran (auto) 0.00 K/mm3 K/mm3 (0.00-0.031) Absolute Neuts (auto) 2.6 K/mm3 K/mm3 (1.3-6.7) Absolute Nucleated RBC 0.0 K/mm3 K/mm3 (0.0-0.012) Nucleated RBC % 0.0 % % (0.0-0.2) ESR 35 mm/hr H mm/hr (0-20) Sodium 135 mmol/L L mmol/L (137-145) Potassium 3.6 mmol/L mmol/L (3.4-5.0) Chloride 99 mmol/L mmol/L (98-107) Carbon Dioxide 30 mmol/L mmol/L (22-30) Anion Gap 6 mmol/L L mmol/L (8-16) BUN 19 mg/dL H mg/dL (7-17) Creatinine 0.70 mg/dL mg/dL (0.7-1.0) Estim Creat Clear Calc 50 ml/min ml/min Estimated GFR > 60 (59 - ) Glucose 112 mg/dL H mg/dL (65-105) Calcium 9.4 mg/dL mg/dL (8.4-10.2) Magnesium 2.2 mg/dL mg/dL (1.6-2.3) Troponin I 0.034 ng/mL ng/mL 0.038 ng/mL H* ng/mL (0.000-0.034) (0.000-0.034) C-Reactive Protein < 0.5 mg/dL mg/dL (<1.0) Patient hx anesthesia problems: none Family hx anesthesia problems: none [facility] Past Medical History Medical History Adenomatous colon polyp Bowel habit changes Chronic low back pain without sciatica Dyslipidemia Essential (primary) hypertension Fibromyalgia GERD (gastroesophageal reflux disease) Hiatal hernia Idiopathic peripheral neuropathy 04/06/2014 Peripheral neuropathy Raynauds phenomenon Unspecified osteoarthritis, unspecified site Surgical History Surgical History (Reviewed 11/10/19 @ 09:56 by Vladislav Thrasher,
[2019-11-10] MEDS: LACTATED RINGERS 1,000 ML 30 ML IV CONT (09:58)
[2019-11-10] MEDS: BUPIVACAINE/EPINEPHRINE 0.5% 30 ML VIAL INFILTRATE (11:24)
[2019-11-10] MEDS: HEPARIN SODIUM, PORCINE 10,000 UNITS/10 ML VIAL 3000 UNITS IV PUSH (11:28)
--- NOTE | 2019-11-10 12:42 | P.OP_ITS ---
Procedure Note - Detailed Date of procedure: 11/10/19 Pre-op diagnosis: chest heaviness port dysfunction Post-op diagnosis: same Procedure performed: removal of left subclavian port, placement of right internal jugular port under U/S and fluroscopic guidance Description of procedure: The patient was taken the operating room placed in the supine position. After adequate induction of mac anesthesia, the patient was p repped and draped in the normal sterile fashion. A time-out was then done to verify the patient's identity, as well as the procedure being performed. I began by accessing the previously placed left subclavian port. I was able to easily draw and flush through the port. Fluoroscopic view did not show any impingement of the port at this time. Given the previous chest x-ray findings, the decision was made to remove the left subclavian Port-A-Cath. I made an incision in the left chest through the previous incision. I was able to get around the port in the pocket and cut the suture holding the port in the pocket. I was then able to remove the port as well as the catheter in full. Examination of the catheter showed no fracturing or impingement of the catheter itself. At this point, I used the ultrasound device to identify the left internal jugular vein. The vein was noted to be very small and after localizing the area appeared to be in spasm. Given this, I went ahead and examined the right internal jugular vein. The right internal jugular vein was noted to be adequate for port placement. I then went ahead and locally anesthetized the area over the right internal jugular vein. I then gained access into the vein under ultrasound guidance using an 18 gauge needle. I then fed the guidewire through the needle into the right internal jugular vein. The guidewire was noted in place via fluoroscopic guidance and the needle was then removed. I then made a pocket in the right chest for the port itself. I then tunneled the catheter from this pocket to the stick site in the right neck. I then placed the dilating sheath over the guidewire under sterile Seldinger technique into the right internal jugular vein under fluoroscopic guidance. Once confirmed good position, removed the guidewire and the dilator now just leaving the sheath in the vein. I then fed the catheter into the sheath under fluoroscopic guidance until the catheter was noted to terminate near the atrial caval junction. The sheath was then peeled away just leaving the catheter in the vein. I then cut the catheter to fit and this was placed onto the port itself. The port was then sutured into the previously made subcutaneous pocket. Final fluoroscopic view showed a nice smooth curvature of the catheter from the port all the way to its termination atrial caval junction. I was able to access the port easily draw and flush through the port. 4 cc a final heparin flush was placed through the port. All incisions were then closed with 3 Vicryl suture in the subcutaneous tissue and 4.0l Monocryl subcuticular suture in the dermis. The patient tolerated the procedure well, was awake and alert in the operating room postoperative. She will be sent to the recovery room in stable condition. Implants: RIJ port Anesthesia: MAC and local Surgeon: Edith Medrano MD Estimated blood loss (mL): 10 Drains: No Packing: No Pathology: none sent Complications: No immediate complications Condition: stable Disposition: PACU Findings: impingement of L SCV port and placement of RIJ port under U/S and fluro
[2019-11-10] MEDS: CHOLECALCIFEROL 1,000 UNITS TABLET 4000 UNITS PO (13:25)
[2019-11-10] MEDS: lisinopriL 20 MG TABLET PO (13:25)
--- NOTE | 2019-11-10 16:26 | PM.PNCARD ---
Progress Note: A&P Assessment and Plan (1) Chest pain: Qualifiers: Chest pain type: unspecified Qualified Code(s): R07.9 - Chest pain, unspecified Code(s): R07.9 - Chest pain, unspecified Status: Acute Assessment and Plan: 2D echo personally reviewed fairly unremarkable. ESR 35, mildly elevated.. Continue ibuprofen 600 mg t.i.d. for another 3 days, b.i.d. for 4 days, daily for 4 days then may discontinue if pain-free. Notify the office with recurrence of pain or new concerns. No further invasive cardiovascular workup indicated at this time. Disposition per hospitalist service. (2) Essential (primary) hypertension: Code(s): I10 - Essential (primary) hypertension Status: Chronic Assessment and Plan: Per primary service. (3) Colon adenocarcinoma: Code(s): C18.9 - Malignant neoplasm of colon, unspecified Status: Acute Assessment and Plan: Per primary and Surgical Service. (4) S/P colectomy: Code(s): Z90.49 - Acquired absence of other specified parts of digestive tract Status: Acute Assessment and Plan: As above Subjective Date/time seen: Date of service:11/10/19 16:26 Follow-up for pericarditis, chest pain Feels much better. No chest pain today. Notes some discomfort in her neck lying flat resolve with sitting up. Had her port replaced. Tolerated well. Review of Systems Review of Systems: All systems reviewed & are unremarkable except as noted in HPI and below Constitutional: Constitutional: Reports as per HPI, Reports no additional constitutional complaints and Reports weakness Eyes: Eyes: Reports as per HPI and Reports no additional eye complaints ENT: Reports system reviewed and no additional complaints, except as documented and Reports as per HPI Cardiovascular: Cardiovascular: Reports as per HPI, Reports no additional cardiovascular complaints and Reports chest pain Respiratory: Respiratory: Reports as per HPI and Reports no additional respiratory complaints Gastrointestinal: Gastrointestinal: Reports as per HPI, Reports no additional gastrointestinal complaints and Reports nausea Genitourinary: Genitourinary: Reports as per HPI, Denies hematuria and Denies dysuria Musculoskeletal: Musculoskeletal: Reports no additional musculoskeletal complaints and Reports as per HPI Integumentary/Breasts: Skin/Breast: Reports system reviewed and no additional complaints, except as docu and Reports as per HPI Neurologic: Reports system reviewed and no additional complaints, except as documented, Reports as per HPI and Reports weakness Psychiatric: Psychiatric: Reports no additional psychiatric complaints and Reports as per HPI Endocrine: Endocrine: Reports no additional endocrine complaints and Reports as per HPI Hematologic/Lymphatic: Hematologic/Lymphatic: Reports no additional hematologic/lymphatic complaints and Reports as per HPI Allergic/Immunologic: Allergic/Immunologic: Reports no additional allergic/immunologic complaints and Reports as per HPI Exam Narrative: Exam Narrative: General: Very pleasant WF appearing younger than her stated age, well developed, alert and oriented x3. No apparent distress, comfortable, pleasant, and cooperative sitting in a chair. Head: atraumatic, normocephalic Eyes: EOM intact, sclerae anicteric, conjunctivae unremarkable Ears/Nose: external inspection of ears and nose were grossly normal Mouth/Throat: oral mucosa pink and moist Neck: supple, normal range of motion, no jugular venous distention or carotid bruits, thyroid nonpalpable, trachea midline. Cardiac: Regular rate and rhythm, normal S1-S2, soft early systolic murmur versus rub Lungs: Clear to auscultation bilaterally, no rales, wheezes, or rhonchi. Abdomen: Soft, nontender, nondistended, positive bowel sounds throughout. No appreciable hepatosplenomegaly, no rebound guarding or rigidity noted. A
--- NOTE | 2019-11-10 16:57 | PM.DS ---
DS: Admitting Diagnosis Admitting Diagnosis Admitting Diagnosis: chest heaviness DS: Discharge Diagnosis Discharge Diagnosis (1) Chest pain: Qualifiers: Chest pain type: unspecified Qualified Code(s): R07.9 - Chest pain, unspecified Code(s): R07.9 - Chest pain, unspecified Status: Acute Assessment and Plan: ECG shows diffuse ST elevation with early repolarization and history consistent with pericarditis. Patient was given one dose of ibuprofen 600 mg in ED. Cardiology consulted. Troponin negative x 3. CXR showing no acute cardiopulmonary disease. Echo showing EF 60-65% with Diastolic dysfunction grade 1. No significant pericardial effusion noted. patient had clinical improvement with the ibuprofen. Overall felt that she had pericarditis. Discharge home tapering dose of add proton pump gastric protection. discussed with Cardiology. Patient is agreeable with this plan. She is agreeable with discharge (2) Colon adenocarcinoma: Code(s): C18.9 - Malignant neoplasm of colon, unspecified Status: Acute Assessment and Plan: S/p laparscopic right colectomy with anastomosis. Left portacath placement per Dr. Medrano for chemotherapy. CXR shows severe impingement of tubing, recommending consult for further input. Patient currently receiving infusion that finished at noon on 11/08. Dr. Chapa consulted and followed along (3) Essential (primary) hypertension: Code(s): I10 - Essential (primary) hypertension Status: Chronic Assessment and Plan: BP monitored while hospitalized. BP mildly elevated at times but eventually became better controlled. We continued her HOPE inhibitor. (4) Encounter for care related to Port-a-Cath: Code(s): Z45.2 - Encounter for adjustment and management of vascular access device Status: Acute Assessment and Plan: CXR showing severe left-sided [id number] tube impingement, at risk for fatigue and fracture. General surgery was consulted. Port-A-Cath was removed. He also had a right-sided Port-A-Cath placed at the same time. She tolerated this procedure well. DS: Summary Hospital Course Reason for hospitalization: 84yo female here for chest pain. Please see H&P for details. Hospital Course: As above Time Spent with Patient Time attestation: Total time spent providing and/or coordinating discharge services:35 minutes Time spent: Greater than 30 minutes Exam Narrative: Exam Narrative: Slpet okay last night. CP resolved. Eating okay. No n/v. AF 98.6 137/65 119 18 98% ra Gen - NARD sititng up in chair Chest - CTA bilaterally, nml RR CV - RRR S1/S2, no rub; Tele showing no significnat dysrhythmias Abd - Soft, NT/ND, Positive BS Ext - No pedal edema Psych - Nml mood and affect Skin - Warm and dry DS: Data Data Completed and Pending Labs on day of discharge: Labs from last 24 hours 11/10/19 11/10/19 05:19 05:19 WBC 3.8 L RBC 4.18 L Hgb 11.4 L Hct 34.9 L MCV 83.5 MCH 27.3 MCHC 32.7 RDW 14.7 H Plt Count 257 MPV 9.7 Immature Gran % (Auto) 0.0 Neut % (Auto) 68.0 Lymph % (Auto) 24.9 [place] % (Auto) 6.6 Eos % (Auto) 0.0 Baso % (Auto) 0.5 Lymph # (Auto) 0.95 [place] # (Auto) 0.3 Eos # (Auto) 0.0 Baso # (Auto) 0.0 Abs Immat Gran (auto) 0.00 Absolute Neuts (auto) 2.6 Absolute Nucleated RBC 0.0 Nucleated RBC % 0.0 ESR 35 H Sodium 135 L Potassium 3.6 Chloride 99 Carbon Dioxide 30 Anion Gap 6 L BUN 19 H Creatinine 0.70 Estim Creat Clear Calc 50 Estimated GFR > 60 Glucose 112 H Calcium 9.4 Magnesium 2.2 Troponin I 0.038 H* C-Reactive Protein < 0.5 Discharge Plan Discharge Attending physician on discharge: Eric Alegre Consulting providers: Hardik Chapa ; Edith Medrano ; Alexa Valdez
== END 2019-11-10 18:35 | disposition home or self-care (01) ==
LOC: ANHED 03:56 → ANHIMU 06:08
PROVIDERS: Physician Assistant; Surgery; Admitting Provider Family Medicine; Emergency Provider General Practice; PCP Family Medicine; Visit Provider Internal Medicine
PROC: (CPT 36561; principal; 2019-11-10 10:45)
DX: R07.9 Chest pain, unspecified (principal); C18.9 Malignant neoplasm of colon, unspecified; Z90.49 Acquired absence of other specified parts of digestive tract; I10 Essential (primary) hypertension; E78.5 Hyperlipidemia, unspecified; K21.9 Gastro-esophageal reflux disease without esophagitis; M54.5 Low back pain; M79.7 Fibromyalgia; I73.00 Raynaud's syndrome without gangrene; M19.90 Unspecified osteoarthritis, unspecified site; G60.9 Hereditary and idiopathic neuropathy, unspecified; Z87.891 Personal history of nicotine dependence
CPT/HCPCS: 36561; 36590; 36415; 71046; 77001; 80048; 83735; 84484; 85025; 85610; 85652; 85730; 86140; 93005; 93306; 96361; 96374; 96376; 99285; A9270; C1788; G0378; J1100; J1644; J2405; J2704; J3010; J7030; J7120

== ENCOUNTER 2020-07-26 13:59 | Outpatient (CLI) | payer MEDICARE, SELFPAY ==
--- NOTE | ~2020-07-26 | CT_ITS ---
EXAMINATION: CT abdomen pelvis w con DATE: 07/26/2020 14:40 INDICATION: Malignant neoplasm of ascending colon. TECHNIQUE: Computed tomography (CT) of the abdomen and pelvis was performed with 100 mL Omnipaque 350 intravenous contrast. Automated exposure control and iterative reconstruction technique were employe d. The dose-length product was 389.76 mGy-cm. COMPARISON: CT abdomen and pelvis 08/29/2019, PET/CT 10/25/2019 FINDINGS: The visualized portions of the lung bases demonstrate mild atelectasis. No pleural effusion . The heart size is normal. No pericardial effusion. Calcifications in the liver and spleen are consi stent with old granulomatous disease. There is an 8 mm mass in right hepatic lobe, stable from 08/29/19 20, likely benign. The gallbladder, pancreas, and adrenal glands are normal. There are cysts in the k idneys measuring up to 12 mm on the right. Stool distends the rectum. There is diverticulosis of the colon without evidence of diverticulitis. There are changes of right hemicolectomy. There are no path ologically enlarged lymph nodes. There is no free intraperitoneal fluid. There is thoracolumbar dextr oscoliosis. There is severe lumbar spondylosis. IMPRESSION: 1. No evidence of metastatic disease. Reviewed, dictated and finalized at location A.
[2020-07-26 14:32] LABS: Estimated Glomerular Filt Rate > 60
== END 2020-07-26 14:00 | disposition home or self-care (01) ==
PROVIDERS: PCP Family Medicine; Visit Provider Internal Medicine Hematology & Oncology
DX: C18.2 Malignant neoplasm of ascending colon (principal)
CPT/HCPCS: 36415; 74177; 80053; 82378; 85025; Q9967

== ENCOUNTER 2020-09-21 00:06 | Day surgery (SDC) | payer MEDICARE, SELFPAY ==
[2020-09-05 10:22] VITALS: BMI 21.3
[2020-09-21 07:08] VITALS: BP 159/82; PULSE 92; RESP 16; TEMP 36.7; O2SAT 100
[2020-09-21] MEDS: LACTATED RINGERS 1,000 ML 150 ML IV CONT (07:16)
--- NOTE | 2020-09-21 08:09 | WPDANESEPPF ---
Anes - Initial Pre Proc Eval Procedure: Operation Date: 09/21/20 08:30 Proposed Procedures p Screening Colonoscopy - Carlos Anand MD Date/Time: 09/21/20 08:09 Surgeon: Carlos Anand MD Pre Op Diagnosis: hx colon CA Patient Data Age: 85 Gender: F Height: 1.68 m Weight: 60.4 kg Last Vital Signs Temp 98.1 F 09/21/20 07:08 Pulse 92 09/21/20 07:08 Resp 16 09/21/20 07:08 BP 159/82 H 09/21/20 07:08 Pulse Ox 100 09/21/20 07:08 Allergies Allergy/AdvReac Type Severity Reaction Status Date / Time No Known Allergies Allergy Mild Verified 09/21/20 07:06 Home Medications Medication Instructions Recorded Confirmed Type Move Free Joint Health 1 tablet PO DAILY 08/18/19 09/21/20 History Vitamin D3 100 mcg PO DAILY 08/18/19 09/21/20 History polyethylene glycol 3350 17 17 gm PO DAILY #119 gm 09/05/19 09/21/20 Rx gram/dose oral powder meloxicam 15 mg tablet 15 mg PO DAILY #90 tablet 04/02/20 09/21/20 Rx quinapril 20 mg tablet See Rx Instructions .ROUTE 07/05/20 09/21/20 History .COMPLEX tablet ferrous sulfate 325 mg (65 mg 325 mg PO DAILY 07/09/20 09/21/20 History iron) tablet tramadol 50 mg tablet 50 mg PO Q8H PRN #90 tablet 07/09/20 09/21/20 Rx Lidocaine Nifedipine 1 DAILY 09/05/20 History gabapentin 300 mg PO BID 09/05/20 09/21/20 History Patient hx anesthesia problems: none Family hx anesthesia problems: none PMFSH Past Medical History Medical History Bowel habit changes Chronic low back pain without sciatica Dyslipidemia Essential (primary) hypertension Fibromyalgia GERD (gastroesophageal reflux disease) Hiatal hernia Idiopathic peripheral neuropathy 04/06/2014 Patient is [employer] Peripheral neuropathy Raynauds phenomenon Unspecified osteoarthritis, unspecified site Surgical History Surgical History Encounter for care related to Port-a-Cath 10/2019 History of appendectomy 02/03/1969 History of carpal tunnel release History of colectomy 09/22/[address] Medrano; right sided with anastamosis History of total hysterectomy 07/25/1980 Family History Family History Mother Carcinoma of colon Father Acute myocardial infarction Social History Social History Social History: Patient lives at home with , Prateek, whom she designates her surrogate MDM. She wishes daughter Saida to be 2nd surrogate MDM. She wishes to be a Full code. She does not wish to receive any blood products as she is Jehovah Witness. Her PCP is Dr. Higgins Smoking packs per day: 0.5 Smoking cigarettes per day: 10.0 Years smoked: 15 Smoking pack-years: 7.50 Smoking status: Former smoker Tobacco type: cigarettes Second hand tobacco smoke exposure: No Smoking end date: 10/23/71 Alcohol intake: never Substance use: never Substance use type: does not use Gender identity (if verbalized by the patient): Female Spiritual care concerns: Yes Anes - Eval Final PreProcedure Day of Procedure 09/21/20 08:09 Patient weight: normal Heart: regular rate and rhythm Lungs: clear to auscultation Airway: Mallampati scale class II Neurological: alert and oriented Last oral intake: >/= 8 hours ASA classification: III Emergent: no Anesthetic plan: proceed Anesthesia type and monitoring: general GIVS and standard monitoring Informed Consent: The patient's anesthetic plan and its attendant risks and benefits were discussed with the patient/family/POA. Questions were solicited and answers provided to the satisfaction of the patient/family/POA.
--- NOTE | 2020-09-21 08:26 | PM.HPGS ---
History of Present Illness History of Present Illness Consent: Risks, benefits, and alternatives have been discussed and questions answered. Patient agrees to proceed with procedure. Chief complaint: hx colon CA Narrative: Shira Wynn is a 85 year old female with right sided colon cancer 08/2019 s/p rt hemicolectomy and chemotherapy Review of Systems Constitutional: Constitutional: Denies headache(s) and Denies weakness Eyes: Eyes: Denies blurry vision ENT: Reports Normal hearing present, Denies headache(s) and Denies neck pain Cardiovascular: Cardiovascular: Denies chest pain and Denies dyspnea Respiratory: Respiratory: Denies dyspnea Gastrointestinal: Gastrointestinal: Reports no additional gastrointestinal complaints Genitourinary: Genitourinary: Denies dysuria Musculoskeletal: Musculoskeletal: Denies neck pain Integumentary/Breasts: Skin/Breast: Denies dry skin Neurologic: Reports Normal hearing present, Denies headache(s) and Denies weakness Psychiatric: Psychiatric: Denies anxiety Endocrine: Endocrine: Denies change in body appearance Hematologic/Lymphatic: Hematologic/Lymphatic: Denies easy bleeding Allergic/Immunologic: Allergic/Immunologic: Denies urticaria PMF Past Medical History Medical History Bowel habit changes Chronic low back pain without sciatica Dyslipidemia Essential (primary) hypertension Fibromyalgia GERD (gastroesophageal reflux disease) Hiatal hernia Idiopathic peripheral neuropathy 04/06/2014 Patient is Episcopalian Peripheral neuropathy Raynauds phenomenon Unspecified osteoarthritis, unspecified site Surgical History Surgical History Encounter for care related to Port-a-Cath 10/2019 History of appendectomy 02/03/1969 History of carpal tunnel release History of colectomy 09/22/[address] Medrano; right sided with anastamosis History of total hysterectomy 07/25/1980 Family History Family History Mother Carcinoma of colon Father Acute myocardial infarction Social History Social History Social History: Patient lives at home with , Prateek, whom she designates her surrogate MDM. She wishes daughter Saida to be 2nd surrogate MDM. She wishes to be a Full code. She does not wish to receive any blood products as she is Jehovah Witness. Her PCP is Dr. Higgins Smoking packs per day: 0.5 Smoking cigarettes per day: 10.0 Years smoked: 15 Smoking pack-years: 7.50 Smoking status: Former smoker Tobacco type: cigarettes Second hand tobacco smoke exposure: No Smoking end date: 10/23/71 Alcohol intake: never Substance use: never Substance use type: does not use Gender identity (if verbalized by the patient): Female Spiritual care concerns: Yes Meds Home Medications and Allergies Home Medications Medication Instructions Recorded Confirmed Type Move Free Joint Health 1 tablet PO DAILY 08/18/19 09/21/20 History Vitamin D3 100 mcg PO DAILY 08/18/19 09/21/20 History polyethylene glycol 3350 17 17 gm PO DAILY #119 gm 09/05/19 09/21/20 Rx gram/dose oral powder meloxicam 15 mg tablet 15 mg PO DAILY #90 tablet 04/02/20 09/21/20 Rx quinapril 20 mg tablet See Rx Instructions .ROUTE 07/05/20 09/21/20 History .COMPLEX tablet ferrous sulfate 325 mg (65 mg 325 mg PO DAILY 07/09/20 09/21/20 History iron) tablet tramadol 50 mg tablet 50 mg PO Q8H PRN #90 tablet 07/09/20 09/21/20 Rx Lidocaine Nifedipine 1 DAILY 09/05/20 History gabapentin 300 mg PO BID 09/05/20 09/21/20 History Allergies Allergy/AdvReac Type Severity Reaction Status Date / Time No Known Allergies Allergy Mild Verified 09/21/20 07:06 Vital Signs Vital Signs - 24 hr 09/21/20 07:08 Temperature 98.1 F Pulse Rate 92
[2020-09-21 08:49] VITALS: BP 120/61; PULSE 75; RESP 25; O2SAT 95
[2020-09-21 08:59] VITALS: BP 148/65; PULSE 74; RESP 20; O2SAT 96
[2020-09-21 09:09] VITALS: BP 139/62; PULSE 69; RESP 21; O2SAT 95
== END 2020-09-21 09:22 | disposition home or self-care (01) ==
PROVIDERS: PCP Family Medicine; Visit Provider Internal Medicine Gastroenterology
PROC: 0DJD8ZZ Inspection of Lower Intestinal Tract, Via Natural or Artificial Opening Endoscopic (ICD-10-PCS; CPT 45378; principal; 2020-09-21 08:30)
DX: Z08 Encounter for follow-up examination after completed treatment for malignant neoplasm (principal); Z85.038 Personal history of other malignant neoplasm of large intestine; K57.30 Diverticulosis of large intestine without perforation or abscess without bleeding; Z98.0 Intestinal bypass and anastomosis status; Z92.21 Personal history of antineoplastic chemotherapy; E78.5 Hyperlipidemia, unspecified; I10 Essential (primary) hypertension; M79.7 Fibromyalgia; K21.9 Gastro-esophageal reflux disease without esophagitis; K44.9 Diaphragmatic hernia without obstruction or gangrene; G60.9 Hereditary and idiopathic neuropathy, unspecified; Z87.891 Personal history of nicotine dependence; I73.00 Raynaud's syndrome without gangrene
CPT/HCPCS: 45378; J2001; J2704; J7120

== ENCOUNTER 2021-05-23 10:25 | Outpatient (CLI) | payer MEDICARE, SELFPAY ==
--- NOTE | ~2021-05-23 | CT_ITS ---
EXAMINATION: CT abdomen pelvis w con DATE: 05/23/2021 11:00 INDICATION: Overlapping malignant neoplasm of colon. TECHNIQUE: Computed tomography (CT) of the abdomen and pelvis was performed with 100 mL Omnipaque 350 intravenous contrast. Automated exposure control and iterative reconstruction technique were employe d. The dose-length product was 613.37 mGy-cm. COMPARISON: CT abdomen and pelvis 07/26/2020 FINDINGS: The visualized portions of the lung bases demonstrate mild atelectasis. No pleural effusion . The heart size is normal. There are calcifications of aortic valve. No pericardial effusion. There is a small sliding hiatal hernia. Calcifications in the liver and spleen are consistent with old gran ulomatous disease. The gallbladder, pancreas, adrenal glands, and kidneys are normal. There is divert iculosis of the colon without evidence of diverticulitis. There are changes of right hemicolectomy. T here are no pathologically enlarged lymph nodes. There is no free intraperitoneal fluid. There is tho racolumbar dextroscoliosis. There is severe lumbar spondylosis. IMPRESSION: 1. No evidence of metastatic disease. Reviewed, dictated and finalized at location A. 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
[2021-05-23 10:57] LABS: Estimated Glomerular Filt Rate > 60
== END 2021-05-23 10:26 | disposition home or self-care (01) ==
PROVIDERS: PCP Family Medicine; Visit Provider Internal Medicine Hematology & Oncology
DX: C18.8 Malignant neoplasm of overlapping sites of colon (principal); K44.9 Diaphragmatic hernia without obstruction or gangrene; M47.816 Spondylosis without myelopathy or radiculopathy, lumbar region
CPT/HCPCS: 74177; Q9967

== ENCOUNTER 2021-05-23 11:13 | Outpatient (CLI) | payer MEDICARE, SELFPAY ==
[2021-05-23 11:35] LABS: Eosinophils Absolute Auto 0.1 K/mm3 (0-0.3); Eosinophils Percent Auto 2.8 % (0-4.4); Hematocrit 39.8 % (37.0-47.0); Hemoglobin 12.3 g/dL (12.0-15.0); Immature Granulocyte Absolute 0.01 K/mm3 (0.00-0.031); Immature Granulocyte Percent A 0.3 % (0-0.5); Lymphocytes Absolute Auto 0.95 K/mm3 (0.9-3.2); Lymphocytes Percent Auto 24.5 % (18.3-44.2); Mean Corpuscular HGB Conc 30.9 g/dl (32-36); Mean Corpuscular Hemoglobin 28.2 pg (26-34); Mean Corpuscular Volume 91.3 fl (80-100); Mean Platelet Volume 9.7 fl (7.4-10.4); Monocytes Absolute Auto 0.3 K/mm3 (0.1-0.6); Monocytes Percent Auto 7.7 % (2.6-8.5); Neutrophils Absolute Auto 2.5 K/mm3 (1.3-6.7); Neutrophils Percent Auto 63.7 % (45.5-73.1); Platelet Count Result 224 k/mm3 (150-375); Red Blood Count 4.36 M/mm3 (4.2-5.4); Red Cell Distribution Width 13.6 % (11.5-14.5); White Blood Count 3.9 K/mm3 (4.5-10.0)
[2021-05-23 12:18] LABS: Alanine Aminotransferase 16 U/L (4-35); Albumin Level 4.3 g/dL (3.5-5.1); Alkaline Phosphatase 90 U/L (38-126); Anion Gap 6 mmol/L (8-16); Aspartate Amino Transferase 26 U/L (14-36); Bilirubin,Total 0.4 mg/dL (0.2-1.3); Blood Urea Nitrogen 20 mg/dL (7-17); Calcium 9.1 mg/dL (8.4-10.2); Carbon Dioxide 30 mmol/L (22-30); Chloride 103 mmol/L (98-107); Cholesterol 195 mg/dL (0-200); Estimated Glomerular Filt Rate > 60; Glucose 102 mg/dL (65-110); HDL Direct 78 mg/dL; Potassium 3.9 mmol/L (3.4-5.0); Sodium 139 mmol/L (137-145); Triglycerides 129 mg/dL (<150)
[2021-05-23 12:29] LABS: LDL Cholesterol Direct 69 mg/dL
[2021-05-23 12:52] LABS: Vitamin D 25 Hydroxy 75.1 ng/mL
[2021-05-23 13:07] LABS: Vitamin B12 > 1000.0 pg/mL (239-931)
== END 2021-05-23 11:14 | disposition home or self-care (01) ==
PROVIDERS: PCP Family Medicine; Referring Provider Family Medicine; Visit Provider Internal Medicine Hematology & Oncology
DX: E78.5 Hyperlipidemia, unspecified (principal); G60.9 Hereditary and idiopathic neuropathy, unspecified; E55.9 Vitamin D deficiency, unspecified; I10 Essential (primary) hypertension; Z00.00 Encounter for general adult medical examination without abnormal findings
CPT/HCPCS: 36415; 74177; 80053; 80061; 82306; 82607; 84443; 85025; Q9967

== ENCOUNTER 2021-06-14 15:42 | Outpatient (CLI) | payer MEDICARE, SELFPAY ==
--- NOTE | ~2021-06-14 | MM_ITS ---
EXAMINATION: MM [facility] HISTORY: Screening mammogram TECHNIQUE: Craniocaudal and mediolateral oblique 3-D tomosynthesis images were obtained and synthetic 2-D images were generated. CAD analysis was submitted and interpreted. COMPARISON: 09/15/2018, 09/10/2017, 614 two BREAST PARENCHYMAL COMPOSITION: There are scattered areas of fibroglandular density. FINDINGS: There is no suspicious mass, calcification, or architectural distortion to suggest malignan cy in either breast. There has been no suspicious interval change. IMPRESSION: 1. No mammographic evidence of malignancy. 2. Recommend routine screening mammography in one year. BI-RADS Category 1: Negative Reviewed, dictated and finalized at location A.
== END 2021-06-14 15:43 | disposition home or self-care (01) ==
LOC: ANHIMG 15:43
PROVIDERS: PCP Family Medicine; Visit Provider Family Medicine
DX: Z12.31 Encounter for screening mammogram for malignant neoplasm of breast (principal)
CPT/HCPCS: 77063; 77067

== ENCOUNTER 2021-07-10 09:36 | Outpatient (CLI) | payer MEDICARE, SELFPAY ==
--- NOTE | 2021-07-10 10:08 | ECHO_ITS ---
Patient Info Name: Shira Wynn Age: 86 years : 1935 Gender: Female Ht: 65 in Wt: 150 lbs BSA: 1.78 m2 HR: 69 bpm BP: 156 / 81 mmHg Heart Rhythm: Sinus Rhythm Technical Quality: Fair Exam Date: 07/10/2021 10:25 AM Exam Location: [facility] Patient Status: Outpatient Admit Date: 07/10/2021 Staff Ordering Physician: Fernanda Higgins MD Fitter Tacker: Audrey Young RDCS Attending Provider: Fernanda Higgins MD Exam Type: CA echo doppler color flow Study Info Indications - murmur Complete two-dimensional, color flow and Doppler transthoracic echocardiogram is performed. Summary 1. Complete two-dimensional, color flow and Doppler transthoracic echocardiogram is performed. 2. Left ventricular chamber dimension is normal. 3. Left ventricular systolic function is normal, estimated at 60-65%. 4. There is no increased left ventricular wall thickness. 5. The left ventricular diastolic function is grade I diastolic dysfunction. 6. Left atrial chamber dimension is mildly enlarged. 7. There is trace mitral valve regurgitation. 8. There is trace tricuspid valve regurgitation. 9. No pulmonary hypertension, estimated pulmonary arterial systolic pressure is 23 mmHg. Left Ventricle Left ventricular chamber dimension is normal. Left ventricular systolic function is normal, estimated at 60-65%. There is no increased left ventricular wall thickness. The left ventricular diastolic function is grade I diastolic dysfunction. Right Ventricle Right ventricular chamber dimension is normal. Right ventricular systolic function is normal. Left Atria Left atrial chamber dimension is mildly enlarged. Right Atria Right atrial chamber dimension is normal. Aortic Valve The aortic valve is not well visualized. There is no aortic valve stenosis. There is no aortic valve regurgitation. Pulmonic Valve The pulmonic valve is not well visualized. Mitral Valve The mitral valve has normal leaflets. There is trace mitral valve regurgitation. The mitral valve annulus is moderately calcified. Tricuspid Valve The tricuspid valve leaflets are normal. There is trace tricuspid valve regurgitation. No pulmonary hypertension, estimated pulmonary arterial systolic pressure is 23 mmHg. Pericardium/Pleural The pericardium appears normal. There is no pericardial effusion. Aorta The aortic root size at the sinus of Valsalva is normal. There is mild aortic atherosclerosis. Left Ventricular Outflow Tract Name Value Normal LVOT 2D LVOT Diameter 2.0 cm LVOT Doppler LVOT Peak Gradient 7 mmHg LVOT Mean Gradient 4 mmHg LVOT VTI 33 cm LVOT VTI/AV VTI Ratio 0.7 LVOT Stroke Volume 104 ml LVOT CO 18.4 l/min LVOT CI 10.4 l/min/m2 Pulmonic Valve Name Value Normal
== END 2021-07-10 09:37 | disposition home or self-care (01) ==
PROVIDERS: PCP Family Medicine; Visit Provider Family Medicine
DX: R01.1 Cardiac murmur, unspecified (principal); I10 Essential (primary) hypertension
CPT/HCPCS: 93306

== ENCOUNTER 2021-10-18 12:01 | Inpatient (IN) | payer MEDICARE, SELFPAY ==
[2021-10-18] VITALS (11 sets, daily range): BP systolic 149–190; BP diastolic 69–95; PULSE 71–76; RESP 11–18; TEMP 36.6–36.9; O2SAT 92–100; BMI 24.9
--- NOTE | ~2021-10-18 | XR_ITS ---
EXAMINATION: XR patella RT DATE: 10/21/2021 14:11 INDICATION: Right knee pain. Fall. TECHNIQUE: 3 views of right patella were obtained. COMPARISON: Right knee radiographs 10/21/2021 FINDINGS: Bone alignment is normal. No fracture. There is severe osteoarthritis of lateral compartmen t, moderate osteoarthritis of patellofemoral compartment, and mild osteoarthritis of medial compartme nt. There is chondrocalcinosis of the menisci. There is a small knee joint effusion. IMPRESSION: 1. Severe right knee osteoarthritis. 2. Small right knee joint effusion. Reviewed, dictated and finalized at location A.
--- NOTE | ~2021-10-18 | XR_ITS ---
EXAMINATION: XR shoulder RT min 2V INDICATION: Right shoulder pain TECHNIQUE: Four views of the right shoulder are submitted. COMPARISON: None FINDINGS: Normal alignment. No fracture. There is mild osteoarthritis of the glenohumeral and acromio clavicular joints. A right internal jugular Port-A-Cath ends with its tip in the distal superior vena cava. Soft tissues are unremarkable. IMPRESSION: 1. No acute osseous abnormality. Reviewed, dictated and finalized at location L.
--- NOTE | ~2021-10-18 | XR_ITS ---
EXAMINATION: XR knee RT 2V DATE: 10/21/2021 14:11 INDICATION: Right knee pain. TECHNIQUE: 2 views of right knee were obtained. COMPARISON: Right knee radiographs 06/15/2017 FINDINGS: Bone alignment is normal. No fracture. There is severe osteoarthritis of lateral compartmen t, moderate osteoarthritis of patellofemoral compartment, and mild osteoarthritis of medial compartme nt. There is chondrocalcinosis of the menisci. There is a small knee joint effusion. IMPRESSION: 1. Severe right knee osteoarthritis. 2. Small right knee joint effusion. Reviewed, dictated and finalized at location A.
--- NOTE | ~2021-10-18 | CT_ITS ---
EXAMINATION: CT pelvis wo con DATE: 10/18/2021 13:43 INDICATION: Right hip fracture post fall TECHNIQUE: High resolution computed tomography (CT) of the pelvis was performed without intravenous c ontrast. Additional sagittal and coronal reconstructions were performed. Automated exposure control a nd iterative reconstruction technique were employed. The dose-length product was 267.10 mGy-cm. COMPARISON: Radiographs dated 10/18/2021 FINDINGS: Diffuse osteopenia. Transcervical fracture of the proximal right femur with 40 degrees posterior angu lation/external rotation. Right femoral head remains normally centered within the right acetabulum. N o other fractures identified. Minimal bilateral hip osteoarthritis. Mild bilateral sacroiliac osteoar thritis. Severe lower lumbar spondylosis. No appreciable hip joint effusions. Bladder is decompressed around a Wilkes catheter. The uterus is not identified and has likely been surgically resected. Marke d diverticulosis along the visualized descending and sigmoid colon without adjacent inflammatory doll ge to suggest acute diverticulitis. Postoperative change of prior proximal right colectomy with ileoc olic anastomosis in the right hemipelvis. No free fluid in the pelvis. IMPRESSION: 1. 40 degrees posterior angulation/external rotation of a transcervical fracture of the proximal righ t femur. Reviewed, dictated and finalized at location A. IMPRESSION: 1. 40 degrees posterior angulation/external rotation of a transcervical fractur e of the proximal right femur.
--- NOTE | ~2021-10-18 | XR_ITS ---
EXAMINATION: XR chest 1V DATE: 10/18/2021 12:45 INDICATION: Fall with right shoulder pain TECHNIQUE: frontal view of the chest was obtained. COMPARISON: Chest radiograph dated 11/10/2019 FINDINGS: Right internal jugular central venous port catheter with distal tip at the midsuperior vena cava. Unc hanged mild elevation the left hemidiaphragm. Lungs remain clear with no focal airspace opacities, pu lmonary edema, pleural effusion or pneumothorax. The cardiomediastinal silhouette is normal. Calcifie d AP window lymph node consistent with old granulomatous disease. Mild thoracolumbar dextroscoliosis with severe upper lumbar spondylosis. IMPRESSION: 1. No acute cardiopulmonary disease. Reviewed, dictated and finalized at location A.
--- NOTE | ~2021-10-18 | XR_ITS ---
EXAMINATION: XR hip RT 2V w AP pelvis INDICATION: Right hip pain after fall TECHNIQUE: AP view of the pelvis and two views of the right hip are obtained. COMPARISON: None available FINDINGS: Images of the right femur are nonstandard, there appears to be an intertrochanteric fractur e of the right femoral neck. The femoral heads are well-seated in their acetabula. There is severe lo wer lumbar spondylosis. IMPRESSION: 1. Probable acute intertrochanteric fracture of the right femoral neck. Reviewed, dictated and finalized at location L.
--- NOTE | ~2021-10-18 | XR_ITS ---
EXAM: XR hip RT min 2V DATE: 10/19/2021 10:40 HISTORY: right hip post op images . COMPARISON: None available. FINDINGS: Decreased mineralization. Interval right hip arthroplasty, in good position No fracture or dislocation. No lytic or blastic lesion. Joint spaces are maintained. No erosion or periosteal franco e. No unexpected radiopaque foreign body. Expected postsurgical change in the soft tissues. IMPRESSION: Status post right hip arthroplasty. No radiographic evidence of procedure or hardware rel ated complication in the right hip. Reviewed, dictated and finalized at location K. IMPRESSION: Status post right hip arthroplasty. No radiographic evidence of pro cedure or hardware related complication in the right hip.
--- NOTE | 2021-10-18 12:11 | ECG_ITS ---
Measurements Intervals [place] Rate: 74 P: 59 DC: 162 QRS: 65 QRSD: 83 T: 48 QT: 389 QTc: 432 Interpretive Statements SINUS RHYTHM EARLY PRECORDIAL R/S TRANSITION BASELINE ARTIFACT- I, II, AVR, AVL BORDERLINE ECG Electronically Signed On 10-18-2021 13:28:44 CDT by Burton Sierra D.O.
--- NOTE | 2021-10-18 12:14 | ED.FALL ---
HPI - Fall General Chief Complaint: Fall Stated Complaint: fall - hip injury Source: RN notes reviewed History of Present Illness HPI Narrative: Patient presents emergency department from home via EMS for fall. Patient states that she was getting out of the car when she had stepped back and went to turn and fell landing on her right side present on her right hip with immediate pain in her right hip and unable to stand since that time she also notes mild pain in her right shoulder she denies striking her head or loss of consciousness she denies chest pain or shortness of breath she denies any numbness or tingling in the extremities Related Data Home Medications Medication Instructions Recorded Confirmed glucosam 750 mg-chondroi 100 1 tablet PO DAILY 08/18/19 10/09/21 mg-hyalur 1.65 mg-CF borate 108 mg tablet (Movaris) ferrous sulfate 325 mg (65 mg 325 mg PO DAILY 07/09/20 10/09/21 iron) tablet gabapentin 300 mg capsule 300 mg PO BID 04/23/21 10/09/21 cholecalciferol (vitamin D3) 100 100 mcg PO WEEKLY 10/09/21 10/09/21 mcg (4,000 unit) capsule (Vitamin D3) mecobalamin (vitamin B12) 1,000 1,000 mcg PO .Qweekly 10/09/21 10/09/21 mcg chewable tablet Allergies Allergy/AdvReac Type Severity Reaction Status Date / Time No Known Allergies Allergy Mild Verified 10/09/21 13:02 Review of Systems Review of Systems: Gen.: Denies fevers or chills ENT: Denies congestion Respiratory: Denies shortness of breath or cough CV: Denies chest pain or palpitations GI: Denies abdominal pain nausea, emesis or diarrhea Musculoskeletal: See HPI Neuro: Denies numbness, tingling, weakness or focal weakness Skin: Denies rash Except as documented, all other systems reviewed and negative [facility] Past Medical History Medical History Bowel habit changes Chronic low back pain without sciatica Dyslipidemia Essential (primary) hypertension Fibromyalgia GERD (gastroesophageal reflux disease) Hiatal hernia Idiopathic peripheral neuropathy 04/06/2014 Patient is [employer] Peripheral neuropathy Raynauds phenomenon Unspecified osteoarthritis, unspecified site Surgical History Surgical History Encounter for care related to Port-a-Cath 10/2019 History of appendectomy 02/03/1969 History of carpal tunnel release History of colectomy 09/22/[address] Medrano; right sided with anastamosis History of total hysterectomy 07/25/1980 Family History Family History Mother Carcinoma of colon Father Acute myocardial infarction Social History Social History Social History: Patient lives at home with , Prateek, whom she designates her surrogate MDM. She wishes daughter Saida to be 2nd surrogate MDM. She wishes to be a Full code. She does not wish to receive any blood products as she is Jehovah Witness. Her PCP is Dr. Higgins Smoking packs per day: 0.5 Smoking cigarettes per day: 10.0 Years smoked: 15 Smoking pack-years: 7.50 Smoking status: Former smoker Tobacco type: cigarettes Second hand tobacco smoke exposure: No Smoking end date: 10/23/71 Alcohol intake: never Alcohol use details: 2 glass of wine consumed monthly Substance use: never Substance use type: does not use Gender identity (if verbalized by the patient): Female Spiritual care concerns: Yes Exam Narrative: APPEARANCE: No acute distress, nontoxic, resting in bed EYES: EOMI, PERRL HEENT: Normocephalic, atraumatic, OMM Neck supple no midline tenderness palpation RESPIRATORY: No respiratory distress Clear to auscultation bilaterally with no rhonchi wheezing or rales. CARDIOVASCULAR: Regular rate and rhythm without murmurs rubs or gallops. ABDOMINAL: Soft, nontender, nondistended, no rebound
[2021-10-18 12:28] LABS: Basophils Percent Auto 0.7 % (0.2-1.2); Eosinophils Absolute Auto 0.2 K/mm3 (0-0.3); Eosinophils Percent Auto 3.5 % (0-4.4); Immature Granulocyte Absolute 0.02 K/mm3 (0.00-0.031); Immature Granulocyte Percent A 0.4 % (0-0.5); Lymphocytes Absolute Auto 1.19 K/mm3 (0.9-3.2); Mean Corpuscular HGB Conc 31.6 g/dl (32-36); Mean Corpuscular Hemoglobin 27.8 pg (26-34); Monocytes Absolute Auto 0.5 K/mm3 (0.1-0.6); Monocytes Percent Auto 8.5 % (2.6-8.5); Neutrophils Absolute Auto 3.5 K/mm3 (1.3-6.7); Neutrophils Percent Auto 64.9 % (45.5-73.1); Platelet Count Result 211 k/mm3 (150-375); Red Blood Count 4.32 M/mm3 (4.2-5.4); Red Cell Distribution Width 13.8 % (11.5-14.5); White Blood Count 5.4 K/mm3 (4.5-10.0)
[2021-10-18 12:38] LABS: Alanine Aminotransferase 17 U/L (6-35); Albumin Level 3.9 g/dL (3.5-5.1); Alkaline Phosphatase 89 U/L (38-126); Anion Gap 7 mmol/L (8-16); Aspartate Amino Transferase 25 U/L (14-36); Bilirubin,Total 0.3 mg/dL (0.2-1.3); Blood Urea Nitrogen 21 mg/dL (7-17); Calcium 9.3 mg/dL (8.4-10.2); Carbon Dioxide 30 mmol/L (22-30); Chloride 102 mmol/L (98-107); Estimated CRCL calculation 37 ml/min; Estimated Glomerular Filt Rate 60; Glucose 104 mg/dL (65-110); INR 1.1; Potassium 4.1 mmol/L (3.4-5.0); Prothrombin Time 13.5 Seconds (11.1-14.7); Sodium 139 mmol/L (137-145)
[2021-10-18 12:39] LABS: Partial Thromboplastin Time 28.4 SECONDS (22.3-36.8)
[2021-10-18 13:10] LABS: Appearance Urine Clear (Clear); Bilirubin Urine Negative (Negative); Blood Urine Negative (Negative); Color Urine Yellow (Yellow); Glucose Urine UA Negative (Negative); Ketones Urine Negative (Negative); Leukocyte Esterase Ur Negative LEU/UL (Negative); Nitrate Urine Negative (Negative); Protein Urine Negative (Negative); Specific Grav Ur 1.015 (1.001-1.035); Urobilinogen Urine 0.2 mg/dL (<2.0)
[2021-10-18 13:14] LABS: SARS-CoV-2 RNA PCR Negative
[2021-10-18] MEDS: MORPHINE SULFATE (*CRX) 2 MG/ML INJ IV PUSH ×3 (13:18→22:54)
--- NOTE | 2021-10-18 13:30 | PC.NURSE ---
Patient to CT
[2021-10-18 13:32] LABS: Add Urine Microscopic? NO
--- NOTE | 2021-10-18 14:30 | PM.IMHP ---
H&P: HPI History of Present Illness Date/Time: 10/18/21 14:30 Chief Complaint: Right hip pain after fall. Narrative: This is an 86-year-old female with hypertension, dyslipidemia, peripheral neuropathy, and history of colon cancer who presented to the emergency department via EMS from home for evaluation of right hip pain after a fall. Prior to arrival she was attempting to climb out of the car car when she lost her balance and fell onto her right side. She had immediate pain in the hip and was unable to stand herself up. She denies other injuries, head trauma, and loss of consciousness. There were no antecedent symptoms prior to the fall and she states it was purely mechanical. With further questioning she does admit to having an unsteady gait at times and she almost always uses a walker upon waking in the morning but she will transition to a cane throughout the day. She has been having problems with that right knee and in fact she has been receiving cortisone injections periodically. Pelvic CT showed a transcervical fracture of the proximal right femur and she is being admitted in this setting. At the time my evaluation she is resting comfortably after receiving IV Tylenol although the pain is starting to come back. She describes an aching pain in the right anterior lateral hip and into the groin. The pain is worse with movement and palpation though she does have some resting discomfort. No paresthesias, skin color, and temperature changes distal to the fracture site. Review of Systems Review of Systems: Twelve systems were reviewed. No syncope or presyncope. No fever, chills, or sweats. No recent cold or flu symptoms. She denies exertional chest pain and shortness of breath. No palpitations. No nausea, vomiting, diarrhea, or dysuria. She has no known history of cardiac or pulmonary disease. No history of adverse effects with anesthesia. Except as documented, all other systems were reviewed and are negative. [facility] Past Medical History Medical History (Updated 10/18/21 @ 22:49 by Francesca Fraga PA-C) Chronic low back pain without sciatica Dyslipidemia Essential (primary) hypertension Fibromyalgia Gastroesophageal reflux disease Hiatal hernia Idiopathic peripheral neuropathy Osteoarthritis Raynauds phenomenon Surgical History Surgical History (Updated 10/18/21 @ 14:15 by Francesca Fraga PA-C) Encounter for care related to Port-a-Cath (10/2019) History of appendectomy (02/03/1969) History of carpal tunnel release History of colectomy (09/22/19) Right sided with anastamosis. History of total hysterectomy (07/25/80) Family History Family History Mother Carcinoma of colon Father Acute myocardial infarction Sibling Multiple myeloma Social History Social History Social History: Surrogate medical decision maker: Prateek Wynn, . Code status: Full code. Smoking packs per day: 0.5 Smoking cigarettes per day: 10.0 Years smoked: 15 Smoking pack-years: 7.50 Smoking status: Former smoker Second hand tobacco smoke exposure: No Alcohol intake: current Alcohol use details: Drinks 2 glasses of wine a month. Substance use: never Substance use type: does not use Living arrangements: with family Additional living arrangements comments: The patient lives with her in [place]. Spiritual care concerns: Yes (Mandaen.) Agree to blood products: No Meds Home Medications and Allergies Home Medications Medication Instructions Recorded Confirmed Type glucosam 750 mg-chondroi 100 1 tablet PO DAILY 08/18/19 10/18/21 History mg-hyalur 1.65 mg-CF borate 108 mg tablet ([facility]) ferrous sulfate 325 mg (65 mg 26 mg PO DAILY 07/09/20 10/18/21 History iron) tablet gabapentin 300 mg capsule 300 mg PO BID 04/23/21 10/18/21 History macie
--- NOTE | 2021-10-18 16:55 | ADMGEN ---
This patient, Shira Wynn, was admitted to Medical Room 243-01. Patient/family oriented to hospital policies and general routines including ID bracelet, bed and alarms, visiting hours, pain management, procedures, bathroom and other care routines, personal items, smoking policy, room service/diet, and visiting hours. Information on how to activate the Rapid Response Team has been discussed. Patient/Family are encouraged to report perceived risks to care and to ask questions if they do not understand what they are told or what they should do.
[2021-10-18] MEDS: GABAPENTIN 300 MG CAPSULE PO (21:18)
[2021-10-19] VITALS (16 sets, daily range): BP systolic 104–153; BP diastolic 52–71; PULSE 73–85; RESP 12–22; TEMP 36.3–37.2; O2SAT 94–100
[2021-10-19] MEDS: MORPHINE SULFATE (*CRX) 2 MG/ML INJ IV PUSH (04:33)
[2021-10-19 05:37] LABS: Basophils Percent Auto 0.4 % (0.2-1.2); Eosinophils Absolute Auto 0.1 K/mm3 (0-0.3); Eosinophils Percent Auto 1.8 % (0-4.4); Hematocrit 39.6 % (37.0-47.0); Hemoglobin 12.7 g/dL (12.0-15.0); Immature Granulocyte Absolute 0.03 K/mm3 (0.00-0.031); Immature Granulocyte Percent A 0.4 % (0-0.5); Lymphocytes Absolute Auto 0.76 K/mm3 (0.9-3.2); Lymphocytes Percent Auto 11.4 % (18.3-44.2); Mean Corpuscular HGB Conc 32.1 g/dl (32-36); Mean Corpuscular Hemoglobin 28.1 pg (26-34); Mean Corpuscular Volume 87.6 fl (80-100); Mean Platelet Volume 10.2 fl (7.4-10.4); Monocytes Absolute Auto 0.5 K/mm3 (0.1-0.6); Monocytes Percent Auto 7.5 % (2.6-8.5); Neutrophils Absolute Auto 5.2 K/mm3 (1.3-6.7); Neutrophils Percent Auto 78.5 % (45.5-73.1); Platelet Count Result 220 k/mm3 (150-375); Red Blood Count 4.52 M/mm3 (4.2-5.4); Red Cell Distribution Width 13.4 % (11.5-14.5); White Blood Count 6.7 K/mm3 (4.5-10.0)
[2021-10-19 05:47] LABS: Alanine Aminotransferase 16 U/L (6-35); Albumin Level 3.7 g/dL (3.5-5.1); Alkaline Phosphatase 91 U/L (38-126); Anion Gap 7 mmol/L (8-16); Aspartate Amino Transferase 27 U/L (14-36); Bilirubin,Total 0.6 mg/dL (0.2-1.3); Blood Urea Nitrogen 16 mg/dL (7-17); Calcium 9.1 mg/dL (8.4-10.2); Carbon Dioxide 27 mmol/L (22-30); Chloride 102 mmol/L (98-107); Estimated CRCL calculation 41 ml/min; Estimated Glomerular Filt Rate > 60; Glucose 136 mg/dL (65-110); Magnesium 2.1 mg/dL (1.6-2.3); Potassium 4.1 mmol/L (3.4-5.0); Sodium 136 mmol/L (137-145)
--- NOTE | 2021-10-19 07:13 | PM.CNOR ---
Assessment and Plan Assessment and plan (1) Subcapital fracture of neck of right femur: Code(s): S72.011A - Unspecified intracapsular fracture of right femur, initial encounter for closed fracture Status: Acute Plan 86-year-old female is one of Jehov[employer]'s [employer]es. She has got a displaced right femoral neck fracture. Plan is to proceed with bipolar right hip replacement. Risks and potential complications were discussed in detail and questions answered. DPA is on the chart. History of Present Illness HPI Consult date: 10/19/21 Consult reason: fracture (Right femoral neck fracture) Chief complaint: Right intertrochanteric hip fracture Narrative: This document created with [id number] technology and is subject to train examiner irregularities. 86-year-old female who is one of Jehovah's witnesses. She fell yesterday suffering a displaced subcapital right femoral neck fracture. This is an unstable fracture and and is going to be addressed surgically. Review of Systems Constitutional: Constitutional: Reports no additional constitutional complaints [facility] Past Medical History Medical History (Updated 10/19/21 @ 07:16 by Samm Self MD) Chronic low back pain without sciatica Dyslipidemia Essential (primary) hypertension Fibromyalgia Gastroesophageal reflux disease Hiatal hernia Idiopathic peripheral neuropathy Osteoarthritis Raynauds phenomenon Subcapital fracture of neck of right femur Surgical History Surgical History (Updated 10/18/21 @ 14:15 by Francesca Fraga PA-C) Encounter for care related to Port-a-Cath (10/2019) History of appendectomy (02/03/1969) History of carpal tunnel release History of colectomy (09/22/19) Right sided with anastamosis. History of total hysterectomy (07/25/80) Family History Family History Mother Carcinoma of colon Father Acute myocardial infarction Sibling Multiple myeloma Social History Social History Social History: Surrogate medical decision maker: Prateek Wynn, . Code status: Full code. Smoking packs per day: 0.5 Smoking cigarettes per day: 10.0 Years smoked: 15 Smoking pack-years: 7.50 Smoking status: Former smoker Second hand tobacco smoke exposure: No Alcohol intake: current Alcohol use details: Drinks 2 glasses of wine a month. Substance use: never Substance use type: does not use Living arrangements: with family Additional living arrangements comments: The patient lives with her in [place]. Spiritual care concerns: Yes (Catholic.) Agree to blood products: No Meds Home Medications and Allergies Home Medications Medication Instructions Recorded Confirmed Type glucosam 750 mg-chondroi 100 1 tablet PO DAILY 08/18/19 10/18/21 History mg-hyalur 1.65 mg-CF borate 108 mg tablet ([facility] [employer]) ferrous sulfate 325 mg (65 mg 26 mg PO DAILY 07/09/20 10/18/21 History iron) tablet gabapentin 300 mg capsule 300 mg PO BID 04/23/21 10/18/21 History quinapril 20 mg tablet 20 mg PO DAILY #90 tabs 07/09/21 10/18/21 Rx cholecalciferol (vitamin D3) 100 125 mcg PO WEEKLY 10/09/21 10/18/21 History mcg (4,000 unit) capsule (Vitamin D3) mecobalamin (vitamin B12) 1,000 1,000 mcg PO .Qweekly 10/09/21 10/18/21 History mcg chewable tablet Allergies Allergy/AdvReac Type Severity Reaction Status Date / Time No Known Allergies Allergy Mild Verified 10/09/21 13:02 Vital Signs Vital Signs - 24 hr 10/18/21 12:02 10/18/21 12:43 10/18/21 12:45 Temperature 98 F Pulse Rate 72 73 74 Respiratory Rate 18 11 L 17 Blood Pressure 190/69 H Pulse Oximetry 97 100 100 Oxygen Delivery Room Air 10/18/21 13:00 10/18/21 12:58 10/18/21 13:42 Temperature 98 F Pulse Rate 76 71 Respiratory Rate 13 13 Blood Pressure Pulse Oximetry 94 100
[2021-10-19] MEDS: LACTATED RINGERS 1,000 ML 30 ML IV CONT ×2 (07:30→10:16)
--- NOTE | 2021-10-19 07:38 | WPDANESEPPF ---
Anes - Initial Pre Proc Eval Procedure: Operation Date: 10/19/21 07:30 Proposed Procedures p Bipolar Hip Replacement(Right) - Samm Self MD Date/Time: 10/19/21 07:38 Surgeon: Adama Ramirez MD Pre Op Diagnosis: Right intertrochanteric hip fracture Patient Data Age: 86 Gender: F Height: 1.65 m Weight: 70 kg Last Vital Signs Temp 37.1 C 10/19/21 04:33 Pulse 82 10/19/21 04:33 Resp 14 10/19/21 04:33 BP 142/65 H 10/19/21 04:33 Pulse Ox 94 10/19/21 04:33 O2 Del Method Room Air 10/18/21 17:39 Allergies Allergy/AdvReac Type Severity Reaction Status Date / Time No Known Allergies Allergy Mild Verified 10/09/21 13:02 Home Medications Medication Instructions Recorded Confirmed Type glucosam 750 mg-chondroi 100 1 tablet PO DAILY 08/18/19 10/18/21 History mg-hyalur 1.65 mg-CF borate 108 mg tablet ([facility] [place] [employer]) ferrous sulfate 325 mg (65 mg 26 mg PO DAILY 07/09/20 10/18/21 History iron) tablet gabapentin 300 mg capsule 300 mg PO BID 04/23/21 10/18/21 History quinapril 20 mg tablet 20 mg PO DAILY #90 tabs 07/09/21 10/18/21 Rx cholecalciferol (vitamin D3) 100 125 mcg PO WEEKLY 10/09/21 10/18/21 History mcg (4,000 unit) capsule (Vitamin D3) mecobalamin (vitamin B12) 1,000 1,000 mcg PO .Qweekly 10/09/21 10/18/21 History mcg chewable tablet Laboratory Tests 10/18/21 10/18/21 10/18/21 12:21 12:21 12:21 WBC 5.4 K/mm3 K/mm3 (4.5-10.0) RBC 4.32 M/mm3 M/mm3 (4.2-5.4) Hgb 12.0 g/dL g/dL (12.0-15.0) Hct 38.0 % % (37.0-47.0) MCV 88.0 fl fl (80-100) MCH 27.8 pg pg (26-34) MCHC 31.6 g/dl L g/dl (32-36) RDW 13.8 % % (11.5-14.5) Plt Count 211 k/mm3 k/mm3 (150-375) MPV 10.0 fl fl (7.4-10.4) Immature Gran % (Auto) 0.4 % % (0-0.5) Neut % (Auto) 64.9 % % (45.5-73.1) Lymph % (Auto) 22.0 % % (18.3-44.2) [place] % (Auto) 8.5 % % (2.6-8.5) Eos % (Auto) 3.5 % % (0-4.4) Baso % (Auto) 0.7 % % (0.2-1.2) Lymph # (Auto) 1.19 K/mm3 K/mm3 (0.9-3.2) [place] # (Auto) 0.5 K/mm3 K/mm3 (0.1-0.6) Eos # (Auto) 0.2 K/mm3 K/mm3 (0-0.3) Baso # (Auto) 0.0 K/mm3 K/mm3 (0.0-0.1) Abs Immat Gran (auto) 0.02 K/mm3 K/mm3 (0.00-0.031) Absolute Neuts (auto) 3.5 K/mm3 K/mm3 (1.3-6.7) Absolute Nucleated RBC 0.0 K/mm3 K/mm3 (0.0-0.012) Nucleated RBC % 0.0 % % (0.0-0.2) PT INR APTT Sodium Potassium Chloride Carbon Dioxide Anion Gap BUN Creatinine Estim Creat Clear Calc Estimated GFR Glucose Calcium Magnesium Total Bilirubin AST ALT Alkaline Phosphatase Total Protein Albumin Urine Color Yellow (Yellow) Urine Appearance Clear (Clear) Urine pH 7.0 (5.0-9.0) Ur Specific [place] 1.015 (1.001-1.035) Urine Protein Negative mg/dL mg/dL (Negative) Urine Glucose (UA) Negative mg/dL mg/dL (Negative) Urine Ketones Negative mg/dL mg/dL (Negative) Ur Blood (Man) Negative (Negative) Urine Nitrate Negative (Negative) Urine Bilirubin Negative (Negative) Urine Urobilinogen 0.2 mg/dL mg/dL (<2.0) Leukocyte Esterase Rfl Negative CAM/UL CAM/UL (Negative) SARS-CoV-2 RNA (RT-PCR) Negative Blood Type Antibody Screen 10/18/21 10/18/21 10/18/21 12:21 12:21 12:21 WBC RBC Hgb Hct MCV MCH MCHC RDW
--- NOTE | 2021-10-19 07:40 | WPDHPUPDATE1 ---
History and Physical Update Update Date/Time: 10/19/21 07:40 History and Physical has been reviewed, including an updated exam of the patient. There are NO changes in the patient's condition. Risks, benefits, and alternatives have been discussed and questions answered. Patient agrees to proceed with procedure.
[2021-10-19] MEDS: ceFAZolin 2 GM/D5W 50 ML 2 GM/50 ML BAG IVPB (07:41)
--- NOTE | 2021-10-19 10:14 | P.OP_ITS ---
Procedure Note - Detailed Date of Procedure 10/19/21 Pre-op Diagnosis Right subcapital femoral neck fracture Post-op Diagnosis Same Procedure Performed Cemented right hip bipolar replacement Surgeon Samm Self MD Scheduling Assistant Wei Anesthesia General Description of Procedure The patient was identified and proper site identified, then taken back to the operating room and transferred to the OR table. After general anesthetic induction and intubation, the patient was positioned in the left lateral decubitus position in the usual manner for a right hip procedure, and secured with padded hip positioner making sure the torso and extremities were properly padded. The right lower extremity was prepped and draped in the usual sterile fashion. A curvilinear incision was made over the greater trochanter and sharp dissection carried down through the subcutaneous tissue to the gluteus fascia and IT band which were divided in line with the incision. The anterior 1/2 of the abductors were sharply dissected off the greater trochanter developing the interval between the abductors and the capsule. The capsule was divided in an inverted-T fashion exposing the fracture site. A neck cut was made about one fingerbreadth above the level of the lesser trochanter. Head fragment was re moved and the acetabulum cleared of debris. The acetabulum was sized to 46mm. The proximal femur was prepared for the size nine cemented. Trial reduction was undertaken and the hip was noted to be stable through range of motion, after which the canal was prepared for cementing. A cement restrictor was placed. The real size seven fracture stem with a 13 mm centralizing tip was then inserted and held in position until the cement had cured. Through trialing it was noted that a 28 minus 3 head with 46 cup configuration gave congregational of leg lengths with excellent stability. The neck of the femoral component was cleaned and dried and the real components in those sizes were attached to the femoral stem. After final thorough lavage of the joint, the hip was again reduced. The capsule and tiara-incisional tissues were infiltrated with 60 milliliters of the arthroplasty solution. Surgicel powder was used throughout the wound for additional hemostasis. The capsule was repaired with #2 Ethibond suture. The abductors were repaired to the greater trochanter with #5 Ethibond suture passed through a bony bridge. The deep fascia was reapproximated with 0 looped PDS suture. Deeper layers of the subcu reapproximated with 0 looped PDS 2-0 strata fix and tissue adhesive were used for the skin, and a sterile dressing was applied. Procedure was well tolerated and there were no k nown intraoperative complications. Estimated Blood Loss 250 Drains No Packing No Pathology None sent Complications No immediate complications Condition Stable Disposition PACU
[2021-10-19] MEDS: fentaNYL CITRATE INJ (*CRX) 100 MCG/2 ML VIAL 25 MCG IV PUSH ×4 (10:30→11:05)
--- NOTE | 2021-10-19 11:15 | PM.IMPN ---
Progress Note: A&P Assessment and Plan (1) Fall from ground level: Code(s): W18.30XA - Fall on same level, unspecified, initial encounter Status: Acute Assessment and Plan: Patient reports a mechanical fall when trying to get out of the car. Plan for surgery today (2) Closed right hip fracture: Code(s): S72.001A - Fracture of unspecified part of neck of right femur, initial encounter for closed fracture Status: Deleted Assessment and Plan: Will monitor post home (3) Essential (primary) hypertension: Code(s): I10 - Essential (primary) hypertension Status: Chronic Assessment and Plan: Blood pressures were reviewed and they have been running a bit high, likely due to pain. Her antihypertensives will be reviewed and resumed as appropriate. Subjective Date/time seen: 10/19/21 11:15 Surgery today Exam Narrative: General: Well-developed female supine in bed in no acute distress. Weight: 68 kg. BMI: 24.9. HEENT: PERRL, EOMI. Conjunctivae anicteric. Tacky mucous membranes. Neck: Supple. No JVD or obvious carotid bruits. Respiratory: Lungs are clear to auscultation bilaterally. Cardiovascular: Regular rate and rhythm with S1-S2. 1/6 systolic murmur at the upper sternal border. Gastrointestinal: Abdomen is soft, nontender, and nondistended with positive bowel sounds. Skin: Warm and dry. No rash or lesions on limited exam. Extremities: No cyanosis, clubbing, or edema. Radial and pedal pulses intact. Musculoskeletal: Right leg is shortened and externally rotated. No gross deformities about the hip. She is tender to palpation in the anterior lateral hip and into that right groin. She is neurovascularly intact distal to the fracture. Neurological: Alert. Cranial nerves 2-12 are grossly intact. No gross focal deficits to casual conversation. Psychiatric: Pleasant and cooperative with normal mood and affect. Objective Data Vital Signs Vital Signs: Vital Signs - 24 hr 10/18/21 12:02 10/18/21 12:43 10/18/21 12:45 Temperature 98 F Pulse Rate 72 73 74 Respiratory Rate 18 11 L 17 Blood Pressure 190/69 H Pulse Oximetry 97 100 100 Oxygen Delivery Room Air Oxygen Flow Rate 10/18/21 13:00 10/18/21 12:58 10/18/21 13:42 Temperature 98 F Pulse Rate 76 71 Respiratory Rate 13 13 Blood Pressure Pulse Oximetry 94 100 Oxygen Delivery Oxygen Flow Rate 10/18/21 13:45 10/18/21 13:51 10/18/21 16:00 Temperature Pulse Rate 73 71 73 Respiratory Rate 13 12 15 Blood Pressure 161/75 H 149/95 H Pulse Oximetry 92 99 100 Oxygen Delivery Oxygen Flow Rate 10/18/21 17:01 10/18/21 17:39 10/18/21 19:44 Temperature 98.4 F 98.1 F Pulse Rate 73 73 Respiratory Rate 16 14 Blood Pressure 159/91 H 152/75 H Pulse Oximetry 99 98 Oxygen Delivery Room Air Oxygen Flow Rate 10/19/21 04:33 10/19/21 10:15 10/19/21 10:30 Temperature 98.7 F 97.4 F L Pulse Rate 82 79 77 Respiratory Rate 14 22 H 13 Blood Pressure 142/65 H 153/64 H 148/67 H Pulse Oximetry 94 98 100 Oxygen Delivery Simple Face Mask Simple Face Mask Oxygen Flow Rate 10 10 10/19/21 10:45 10/19/21 11:00 Temperature 97.4 F L Pulse Rate 76 75 Respiratory Rate 16 12 Blood Pressure 136/64 136/66 Pulse Oximetry 100 100 Oxygen Delivery Simple Face Mask Room Air Oxygen Flow Rate 8 Intake/Output Intake/Output: Intake & Output 10/16/21 10/17/21 10/18/21 10/19/21 23:59 23:59 23:59 23:59 Intake Total 100 350 Output Total 950 1190 Balance -850 -840 Meds/Results Medications: Active Medications Generic Name Dose Route Start Last Admin Trade Name Johnieq PRN Reason Stop Dose Admin Acetaminophen 1,000 mg 10/18/21 22:45 Acetaminophen 500 Mg Tablet PO Q6H PRN Mild Pain (1-3) or Fever Fentanyl Citrate 25 mcg 10/19/21 07:38 10/19/21 11:05 Fentanyl Citrate Inj (*Crx) 100 Mcg/2 Ml Vial IV PUSH 12.5 mcg Q2M PRN Administ
[2021-10-19] MEDS: SODIUM CHLORIDE 0.9% IV 1,000 ML 125 ML IV CONT (12:36)
[2021-10-19] MEDS: lisinopriL 20 MG TABLET PO (12:37)
[2021-10-19] MEDS: HYDROcodone/acetaminophen (*CRX) 5-325 MG TABLET 1 TAB PO (13:11)
[2021-10-19] MEDS: HYDROcodone/acetaminophen (*CRX) 5-325 MG TABLET 2 TAB PO ×2 (16:48→22:13)
[2021-10-19] MEDS: GABAPENTIN 300 MG CAPSULE PO (16:50)
[2021-10-19] MEDS: SENNA/DOCUSATE SODIUM TABLET 2 TAB PO (16:50)
[2021-10-19] MEDS: MORPHINE SULFATE (*CRX) 2 MG/ML INJ 1 MG IV PUSH (23:56)
[2021-10-20] VITALS (9 sets, daily range): BP systolic 96–158; BP diastolic 42–60; PULSE 78–100; RESP 12–18; TEMP 36.6–37.8; O2SAT 91–100
[2021-10-20] MEDS: HYDROcodone/acetaminophen (*CRX) 5-325 MG TABLET 2 TAB PO ×4 (03:59→22:10)
[2021-10-20 05:35] LABS: Basophils Percent Auto 0.2 % (0.2-1.2); Eosinophils Percent Auto 0.7 % (0-4.4); Hematocrit 33.9 % (37.0-47.0); Hemoglobin 10.7 g/dL (12.0-15.0); Immature Granulocyte Absolute 0.02 K/mm3 (0.00-0.031); Immature Granulocyte Percent A 0.3 % (0-0.5); Lymphocytes Percent Auto 13.1 % (18.3-44.2); Mean Corpuscular HGB Conc 31.6 g/dl (32-36); Mean Corpuscular Hemoglobin 28.2 pg (26-34); Mean Corpuscular Volume 89.4 fl (80-100); Mean Platelet Volume 10.1 fl (7.4-10.4); Monocytes Absolute Auto 0.7 K/mm3 (0.1-0.6); Neutrophils Absolute Auto 4.6 K/mm3 (1.3-6.7); Neutrophils Percent Auto 74.7 % (45.5-73.1); Platelet Count Result 174 k/mm3 (150-375); Red Blood Count 3.79 M/mm3 (4.2-5.4); Red Cell Distribution Width 13.8 % (11.5-14.5); White Blood Count 6.1 K/mm3 (4.5-10.0)
[2021-10-20 05:49] LABS: Anion Gap 7 mmol/L (8-16); Blood Urea Nitrogen 17 mg/dL (7-17); Calcium 8.4 mg/dL (8.4-10.2); Carbon Dioxide 30 mmol/L (22-30); Chloride 100 mmol/L (98-107); Estimated CRCL calculation 37 ml/min; Estimated Glomerular Filt Rate 60; Glucose 146 mg/dL (65-110); Potassium 3.8 mmol/L (3.4-5.0); Sodium 137 mmol/L (137-145)
[2021-10-20] MEDS: GABAPENTIN 300 MG CAPSULE PO ×2 (08:56→16:24)
[2021-10-20] MEDS: lisinopriL 20 MG TABLET PO (08:56)
[2021-10-20] MEDS: FERROUS SULFATE DRIED 142 MG TABCR PO (08:56)
[2021-10-20] MEDS: SENNA/DOCUSATE SODIUM TABLET 2 TAB PO ×2 (08:56→16:24)
[2021-10-20] MEDS: APIXABAN 2.5 MG TABLET PO ×2 (08:56→20:50)
[2021-10-20] MEDS: polyethylene glycoL 3350 17 GM POWD.PACK PO (08:57)
--- NOTE | 2021-10-20 09:57 | PM.IMPN ---
Progress Note: A&P Assessment and Plan (1) Fall from ground level: Code(s): W18.30XA - Fall on same level, unspecified, initial encounter Status: Acute Assessment and Plan: Patient reports a mechanical fall when trying to get out of the car. Postop day 1 (2) Closed right hip fracture: Code(s): S72.001A - Fracture of unspecified part of neck of right femur, initial encounter for closed fracture Status: Deleted Assessment and Plan: Will monitor post home (3) Essential (primary) hypertension: Code(s): I10 - Essential (primary) hypertension Status: Chronic Assessment and Plan: Blood pressures were reviewed and they have been running a bit high, likely due to pain. Her antihypertensives will be reviewed and resumed as appropriate. Subjective Date/time seen: 10/20/21 09:57 No complaints of Exam Narrative: General: Well-developed female supine in bed in no acute distress. Weight: 68 kg. BMI: 24.9. HEENT: PERRL, EOMI. Conjunctivae anicteric. Tacky mucous membranes. Neck: Supple. No JVD or obvious carotid bruits. Respiratory: Lungs are clear to auscultation bilaterally. Cardiovascular: Regular rate and rhythm with S1-S2. 1/6 systolic murmur at the upper sternal border. Gastrointestinal: Abdomen is soft, nontender, and nondistended with positive bowel sounds. Skin: Warm and dry. No rash or lesions on limited exam. Extremities: No cyanosis, clubbing, or edema. Radial and pedal pulses intact. Musculoskeletal: Right leg is shortened and externally rotated. No gross deformities about the hip. She is tender to palpation in the anterior lateral hip and into that right groin. She is neurovascularly intact distal to the fracture. Neurological: Alert. Cranial nerves 2-12 are grossly intact. No gross focal deficits to casual conversation. Psychiatric: Pleasant and cooperative with normal mood and affect. Objective Data Vital Signs Vital Signs: Vital Signs - 24 hr 10/19/21 10:15 10/19/21 10:30 10/19/21 10:45 Temperature 97.4 F L Pulse Rate 79 77 76 Respiratory Rate 22 H 13 16 Blood Pressure 153/64 H 148/67 H 136/64 Pulse Oximetry 98 100 100 Oxygen Delivery Simple Face Mask Simple Face Mask Simple Face Mask Oxygen Flow Rate 10 10 8 10/19/21 11:00 10/19/21 11:15 10/19/21 12:10 Temperature 97.4 F L 97.4 F L Pulse Rate 75 76 Respiratory Rate 12 13 Blood Pressure 136/66 129/71 Pulse Oximetry 100 99 99 Oxygen Delivery Room Air Nasal Cannula Nasal Cannula Oxygen Flow Rate 2 2 10/19/21 12:20 10/19/21 12:49 10/19/21 13:13 Temperature Pulse Rate Respiratory Rate Blood Pressure Pulse Oximetry 100 96 Oxygen Delivery Nasal Cannula Room Air Room Air Oxygen Flow Rate 1 10/19/21 11:40 10/19/21 11:41 10/19/21 11:55 Temperature 97.7 F 98.0 F 97.6 F Pulse Rate 76 73 77 Respiratory Rate 16 17 16 Blood Pressure 147/65 H 136/60 145/65 H Pulse Oximetry 99 95 100 Oxygen Delivery Oxygen Flow Rate 10/19/21 14:40 10/19/21 17:55 10/19/21 17:50 Temperature 98.0 F 98.3 F Pulse Rate 83 80 Respiratory Rate 16 18 Blood Pressure 104/52 L 138/62 Pulse Oximetry 99 96 96 Oxygen Delivery Room Air Oxygen Flow Rate 10/19/21 19:53 10/20/21 00:45 10/20/21 04:09 Temperature 98.9 F 98.4 F 98.6 F Pulse Rate 85 83 88 Respiratory Rate 16 16 16 Blood Pressure 119/52 L 114/49 L 100/55 L Pulse Oximetry 96 100 93 Oxygen Delivery Oxygen Flow Rate 10/20/21 09:11 Temperature 98.5 F Pulse Rate 78 Respiratory Rate 12 Blood Pressure 124/58 L Pulse Oximetry 98 Oxygen Delivery Oxygen Flow Rate Intake/Output Intake/Output: Intake & Output 10/17/21 10/18/21 10/19/21 10/20/21 23:59 23:59 23:59 23:59 Intake Total 100 2280 550 Output Total 950 8360 1175 Balance -850 683 -293 Meds/Results Medications: Active Medications Generic Name Dose Route Start Last Admin Trade Name Freq PRN Reason Stop Dose A
--- NOTE | 2021-10-20 11:10 | PCPTNOTE ---
Attempted to see patient x 2 this morning for Physical Therapy session; 0845 patient requested therapy come back after she received pain medication that was scheduled for around 10:00. Attempted a second time at 1100, patient still c/o 9-12/30 pain, RN reported patient received pain medication about 30 minutes ago. Patient's and daughter present in room as well. Patient along with daughter requested therapy return at a later time today due to patient's pain level.
[2021-10-20] MEDS: MORPHINE SULFATE (*CRX) 2 MG/ML INJ IV PUSH (11:44)
--- NOTE | 2021-10-20 12:02 | PCOTNOTE ---
Attempted to see pt for occupational therapy tx, however, due to increase pain pt declined to participate at this time Will attempt at a later time today following lunch.
--- NOTE | 2021-10-20 14:39 | PM.PNORT ---
Progress Note: A&P Assessment and Plan (1) Subcapital fracture of neck of right femur: Code(s): S72.011A - Unspecified intracapsular fracture of right femur, initial encounter for closed fracture Status: Acute Assessment and Plan: 86-year-old female postop day 1 after right bipolar hip replacement. Still struggling quite a bit to be active with therapy. Plan to discharge to nursing facility for help with therapy services. She is aware that she can be full weight-bearing on the right lower extremity. Continue Eliquis for DVT prophylaxis. Subjective Subjective Date/Time Seen: 10/20/21 14:39 Post Op day: 1 Principal diagnosis: Right subcapital femoral neck fracture Interval history: 86-year-old female postop day 1 after right bipolar hip replacement. Uneventful overnight stay. Nerve block has seemed to have worn off and she is in a bit of pain today. She initially declined therapy but has worked with them this afternoon. Review of Systems Constitutional: Constitutional: Reports as per HPI Exam Const: General: comfortable Resp: Effort & Inspection: normal respiratory effort Skin: General skin exam: normal color Other: Surgical dressing is clean and dry. No drainage to the site. Extrem: Other: Exam of the right lower extremity reveals mild irritability with internal and external rotation of the hip. She denies any numbness or tingling down the leg. She is able to wiggle her toes without any difficulty. No appreciable edema. Neurovascular status intact. Psych: Mental Status: mental status grossly normal Objective Data Vital Signs Vital Signs: Vital Signs - 24 hr 10/19/21 14:40 10/19/21 17:55 10/19/21 17:50 Temperature 98.0 F 98.3 F Pulse Rate 83 80 Respiratory Rate 16 18 Blood Pressure 104/52 L 138/62 Pulse Oximetry 99 96 96 Oxygen Delivery Room Air 10/19/21 19:53 10/20/21 00:45 10/20/21 04:09 Temperature 98.9 F 98.4 F 98.6 F Pulse Rate 85 83 88 Respiratory Rate 16 16 16 Blood Pressure 119/52 L 114/49 L 100/55 L Pulse Oximetry 96 100 93 Oxygen Delivery 10/20/21 09:11 10/20/21 09:00 Temperature 98.5 F Pulse Rate 78 Respiratory Rate 12 Blood Pressure 124/58 L Pulse Oximetry 98 Oxygen Delivery Room Air Intake/Output Intake/Output: Intake & Output 10/17/21 10/18/21 10/19/21 10/20/21 23:59 23:59 23:59 23:59 Intake Total 100 2280 790 Output Total 950 3030 1175 Balance -850 253 -115 Meds/Results Medications: Active Medications Generic Name Dose Route Start Last Admin Trade Name Freq PRN Reason Stop Dose Admin Acetaminophen 650 mg 10/19/21 11:26 Acetaminophen 325 Mg Tablet PO Q6H PRN Mild Pain (1-3) or Fever Hydrocodone Bitart/Acetaminophen 1 tab 10/19/21 11:26 10/19/21 13:11 Hydrocodone/Acetaminophen (*Crx) 5-325 Mg Tablet PO 1 tab Q3H PRN Administration Pain Rated 4-6 Hydrocodone Bitart/Acetaminophen 2 tab 10/19/21 11:26 10/20/21 10:22 Hydrocodone/Acetaminophen (*Crx) 5-325 Mg Tablet PO 2 tab Q6H PRN Administration Pain Rated 7-10 Apixaban 2.5 mg 10/20/21 09:00 10/20/21 08:56 Apixaban 2.5 Mg Tablet PO 11/23/21 21:01 2.5 mg Q12HR LEE ANN Administration Ferrous Sulfate 142 mg 10/19/21 09:00 10/20/21 08:56 Ferrous Sulfate Dried 142 Mg Tabcr PO 142 mg DAILY LEE ANN Administration Gabapentin 300 mg 10/18/21 20:45 10/20/21 08:56 Gabapentin 300 Mg Capsule PO 300 mg BID LEE ANN Administration Lisinopril 20 mg 10/19/21 09:00 10/20/21 08:56 Lisinopril 20 Mg Tablet PO 20 mg DAILY LEE ANN Administration Morphine Sulfate 2 mg 10/20/21 11:31 10/20/21 11:44 Morphine Sulfate (*Crx) 2 Mg/Ml Inj IV PUSH 10/21/21 11:31 2 mg Q3H PRN Administration Breakthrough Pain Naloxone HCl 0.1 mg 10/19/21 11:26 Naloxone Hcl 0.4 Mg/Ml Vial IV PUSH Q2M PRN Opiate Reversal Ondansetron HCl 4 mg 10/19/21 11:26 Ondansetron Inj 4 Mg/2 Ml Vial
[2021-10-21] VITALS (7 sets, daily range): BP systolic 74–140; BP diastolic 45–95; PULSE 68–95; RESP 16–20; TEMP 36.6–37; O2SAT 93–99
[2021-10-21] MEDS: HYDROcodone/acetaminophen (*CRX) 5-325 MG TABLET 2 TAB PO (07:36)
[2021-10-21] MEDS: GABAPENTIN 300 MG CAPSULE PO ×2 (09:18→17:50)
[2021-10-21] MEDS: lisinopriL 20 MG TABLET PO (09:18)
[2021-10-21] MEDS: SENNA/DOCUSATE SODIUM TABLET 2 TAB PO ×2 (09:18→17:50)
[2021-10-21] MEDS: polyethylene glycoL 3350 17 GM POWD.PACK PO (09:18)
[2021-10-21] MEDS: APIXABAN 2.5 MG TABLET PO ×2 (09:18→20:29)
[2021-10-21] MEDS: FERROUS SULFATE DRIED 142 MG TABCR PO (09:18)
--- NOTE | 2021-10-21 11:00 | PM.PNORT ---
Progress Note: A&P Assessment and Plan (1) Subcapital fracture of neck of right femur: Code(s): S72.011A - Unspecified intracapsular fracture of right femur, initial encounter for closed fracture Status: Acute Plan Continue to mobilize. Awaiting placement. Will discontinue narcotics and use scheduled Tylenol with p.r.n. tramadol for pain. Currently on Eliquis however will transition to aspirin upon discharge. Following. Subjective Subjective Date/Time Seen: 10/21/21 11:00 Post Op day: 2 Principal diagnosis: Dx: Status post cemented bipolar right hip replacement Interval history: 86-year-old female postop day two right bipolar hip replacement. Reasonably comfortable but experiencing confusion. Exam Const: General: cooperative, alert and awake Orientation/consciousness: No patient oriented x3 HENMT: Head: normal to inspection Ears: hearing grossly normal bilaterally GI: Inspection: non-distended Neuro: General: No patient oriented x3 Extrem: Other: Exam of her right lower extremity shows no drainage of the wound with very little swelling and no bruising or erythema. Grossly neurovascular status right lower extremity intact. Calves negative. Radiology Reports: Comments: EXAM:? XR hip RT min 2V DATE: 10/19/2021 10:40 HISTORY: right hip post op images . COMPARISON:? None available. FINDINGS:? Decreased mineralization. Interval right hip arthroplasty, in good position No fracture or dislocation. No lytic or blastic lesion. Joint spaces are maintained. No erosion or periosteal change. No unexpected radiopaque foreign body. Expected postsurgical change in the soft tissues. IMPRESSION: Status post right hip arthroplasty. No radiographic evidence of procedure or hardware related complication in the right hip. Reviewed, dictated and finalized at location [facility]. Objective Data Vital Signs Vital Signs: Vital Signs - 24 hr 10/20/21 13:11 10/20/21 15:41 10/20/21 16:02 Temperature 97.9 F Pulse Rate 80 Respiratory Rate 16 Blood Pressure 96/56 L Pulse Oximetry 91 99 99 Oxygen Delivery 10/20/21 18:30 10/20/21 21:39 10/20/21 20:00 Temperature 100.1 F H 98.2 F Pulse Rate 87 100 100 Respiratory Rate 18 18 18 Blood Pressure 119/42 L 158/60 H Pulse Oximetry 95 96 96 Oxygen Delivery Room Air 10/21/21 00:30 10/21/21 06:37 Temperature 98.6 F 97.8 F Pulse Rate 94 68 Respiratory Rate 16 18 Blood Pressure 132/61 129/62 Pulse Oximetry 93 97 Oxygen Delivery Intake/Output Intake/Output: Intake & Output 10/18/21 10/19/21 10/20/21 10/21/21 23:59 23:59 23:59 23:59 Intake Total 100 / 100 2280 / 2280 1430 / 1430 620 / 620 Output Total 950 / 950 1665 / 1665 2225 / 2225 850 / 850 Balance -850 / -850 615 / 615 -795 / -795 -230 / -230 Meds/Results Medications: Active Medications Generic Name Dose Route Start Last Admin Trade Name Freq PRN Reason Stop Dose Admin Acetaminophen 650 mg 10/19/21 11:26 Acetaminophen 325 Mg Tablet PO Q6H PRN Mild Pain (1-3) or Fever Apixaban 2.5 mg 10/20/21 09:00 10/21/21 09:18 Apixaban 2.5 Mg Tablet PO 11/23/21 21:01 2.5 mg Q12HR LEE ANN Administration Ferrous Sulfate 142 mg 10/19/21 09:00 10/21/21 09:18 Ferrous Sulfate Dried 142 Mg Tabcr PO 142 mg DAILY LEE ANN Administration Gabapentin 300 mg 10/18/21 20:45 10/21/21 09:18 Gabapentin 300 Mg Capsule PO 300 mg BID LEE ANN Administration Lisinopril 20 mg 10/19/21 09:00 10/21/21 09:18 Lisinopril 20 Mg Tablet PO 20 mg DAILY LEE ANN Administration Naloxone HCl 0.1 mg 10/19/21 11:26 Naloxone Hcl 0.4 Mg/Ml Vial IV PUSH Q2M PRN Opiate Reversal Ondansetron HCl 4 mg 10/19/21 11:26 Ondansetron Inj 4 Mg/2 Ml Vial IV PUSH Q4H PRN Nausea And Vomiting Polyethylene Glycol 17 gm 10/20/21 09:00 10/21/21 0
[2021-10-21] MEDS: ACETAMINOPHEN 325 MG TABLET 650 MG PO (11:51)
--- NOTE | 2021-10-21 12:32 | WPDCN ---
Assessment and Plan Assessment and plan (1) Subcapital fracture of neck of right femur: Code(s): S72.011A - Unspecified intracapsular fracture of right femur, initial encounter for closed fracture Status: Acute Assessment and Plan: Right bipolar hemiarthroplasty 10/19/[address] Self. Weightbearing as tolerated. Patient is anticoagulated on Eliquis 2.5 mg p.o. q.12 hours for a total of [address] Self's protocol. Continue with PT and OT (2) Fall from ground level: Code(s): W18.30XA - Fall on same level, unspecified, initial encounter Status: Acute Assessment and Plan: Balance program for fall prevention (3) Gastroesophageal reflux disease: Code(s): K21.9 - Gastro-esophageal reflux disease without esophagitis Status: Acute Assessment and Plan: Monitor (4) S/P colectomy: Code(s): Z90.49 - Acquired absence of other specified parts of digestive tract Status: Chronic (5) Colon adenocarcinoma: Code(s): C18.9 - Malignant neoplasm of colon, unspecified Status: Chronic (6) Peripheral neuropathy: Qualifiers: Peripheral neuropathy type: polyneuropathy, unspecified Qualified Code(s): G62.9 - Polyneuropathy, unspecified Code(s): G62.9 - Polyneuropathy, unspecified Status: Chronic Assessment and Plan: Gabapentin 300 mg b.i.d. Fall prevention Balance program (7) Unspecified osteoarthritis, unspecified site: Qualifiers: Osteoarthritis location: unspecified site Osteoarthritis type: unspecified Qualified Code(s): M19.90 - Unspecified osteoarthritis, unspecified site Code(s): M19.90 - Unspecified osteoarthritis, unspecified site Status: Acute Assessment and Plan: Joint protection. PT OT (8) Dyslipidemia: Code(s): E78.5 - Hyperlipidemia, unspecified Status: Acute (9) Idiopathic peripheral neuropathy: Code(s): G60.9 - Hereditary and idiopathic neuropathy, unspecified Status: Acute Assessment and Plan: Gabapentin 300 mg b.i.d. (10) Essential (primary) hypertension: Code(s): I10 - Essential (primary) hypertension Status: Chronic Assessment and Plan: Lisinopril 20 mg daily (11) Chronic low back pain without sciatica: Qualifiers: Back pain laterality: unspecified Qualified Code(s): M54.5 - Low back pain; G89.29 - Other chronic pain Code(s): M54.5 - Low back pain; G89.29 - Other chronic pain Status: Acute Assessment and Plan: Proper body mechanics. Patient may have a component of sciatica as well as right knee osteoarthritis causing knee pain (12) Fibromyalgia: Code(s): M79.7 - Fibromyalgia Status: Acute Assessment and Plan: Gabapentin (13) Right knee pain: Code(s): M25.561 - Pain in right knee Status: Acute Assessment and Plan: Ice p.r.n. Obtain patella x-ray and two view knee x-ray of right knee. Patient with longstanding history of right knee osteoarthritis. Patient underwent a right knee injection 1 week ago.\ Patient may benefit from increasing gabapentin from 300 mg b.i.d. to 300 mg t.i.d.. Patient has had postop confusion unfortunately with pain meds and this should be done judiciously Plan Spoke with daughter Gretchen, , Don and patient. Patient needed encouragement to participate. Patient is quite anxious and tends to anticipate right knee pain/hip pain. Family is receptive to SNF/rehab. I will continue to follow. If patient is transferred to SNF or Rehab, I will follow. Currently, family and patient are leaning toward SNF. Currently, patient is not receptive to 3 hours of therapy due to pain. Xrays of R knee will be obatin and ice will be used to assist with knee pain. HPI Data of Consult Date/Time: 10/21/21 12:32 Requesting Physician: Adama Ramirez MD Primary Care Provider: Michael Higgins MD Consult Narrative
--- NOTE | 2021-10-21 12:55 | PM.DS ---
DS: Admitting Diagnosis Discharge Date October 21, 2021 Admitting Diagnosis Hip fracture DS: Discharge Diagnosis Discharge Diagnosis (1) Fall from ground level: Code(s): W18.30XA - Fall on same level, unspecified, initial encounter Status: Acute Assessment and Plan: Patient reports a mechanical fall when trying to get out of the car. (2) Closed right hip fracture: Code(s): S72.001A - Fracture of unspecified part of neck of right femur, initial encounter for closed fracture Status: Deleted Assessment and Plan: Will monitor post home (3) Essential (primary) hypertension: Code(s): I10 - Essential (primary) hypertension Status: Chronic Assessment and Plan: Blood pressures were reviewed and they have been running a bit high, likely due to pain. Her antihypertensives will be reviewed and resumed as appropriate. DS: Summary Hospital Course Hospital Course: Patient was admitted for hip fracture, status post repair doing well. Pain medication on discharge. Rehab on discharge otherwise she is doing okay patient will also be on Eliquis for DVT prophylaxis Time Spent with Patient Time attestation: Total time spent providing and/or coordinating discharge services: Exam Narrative: General: Well-developed female supine in bed in no acute distress. Weight: 68 kg. BMI: 24.9. HEENT: PERRL, EOMI. Conjunctivae anicteric. Tacky mucous membranes. Neck: Supple. No JVD or obvious carotid bruits. Respiratory: Lungs are clear to auscultation bilaterally. Cardiovascular: Regular rate and rhythm with S1-S2. 1/6 systolic murmur at the upper sternal border. Gastrointestinal: Abdomen is soft, nontender, and nondistended with positive bowel sounds. Skin: Warm and dry. No rash or lesions on limited exam. Extremities: No cyanosis, clubbing, or edema. Radial and pedal pulses intact. Musculoskeletal: Right leg is shortened and externally rotated. No gross deformities about the hip. She is tender to palpation in the anterior lateral hip and into that right groin. She is neurovascularly intact distal to the fracture. Neurological: Alert. Cranial nerves 2-12 are grossly intact. No gross focal deficits to casual conversation. Psychiatric: Pleasant and cooperative with normal mood and affect. DS: Data Data Completed and Pending Pending studies at discharge: Pending at discharge 10/21/21 08:48 Surgical [PTH] Routine Discharge Plan Discharge Attending physician on discharge: Adama Ramirez Consulting providers: Samm Self ; Vandana Mckay Discharging Clinician: Adama Ramirez Patient Disposition: SNF Activity: no preference Diet: as tolerated Stand Alone Forms: General Discharge Information Discharge Medications: New tramadol 50 mg Tablet 50 mg PO Q6H PRN (Reason: Breakthrough Pain) 7 Days Qty: 28 0RF Eliquis 2.5 mg Tablet 2.5 mg PO Q12HR 21 Days Qty: 42 0RF acetaminophen [Mapap (acetaminophen)] 325 mg Tablet 650 mg PO Q6H PRN (Reason: Mild Pain (1-3) Or Fever) Qty: 120 0RF Continued ferrous sulfate 325 mg (65 mg iron) tablet 26 mg PO DAILY gabapentin 300 mg capsule 300 mg PO BID mecobalamin (vitamin B12) 1,000 mcg tablet,chewable 1,000 mcg PO .Qweekly Label Comments: Pt states she takes on [facility] 750 mg-100 mg- 1.65 mg-108 mg Tablet 1 tablet PO DAILY Hold Instructions: hold while on ibuprofen. Vitamin D3 100 mcg (4,000 unit) capsule 125 mcg PO WEEKLY Label Comments: Pt states she takes on quinapril 20 mg tablet 20 mg PO DAILY Qty: 90 2RF Date of admission: 10/19/21 15:39 Primary Care Provider: Fernanda Higgins Admitting Provider: Adama Ramirez Attending physician on admission: Adama Ramirez Condition: Stable Quality VTE Prophylaxis VTE prophylaxis: mechanical ordered and pharmacologic ord
--- NOTE | 2021-10-21 14:09 | PCPTNOTE ---
The patient treatment was not able to be completed this afternoon on 10/31/2021 due to patient out of room for X-ray. Will plan to continue treatment per plan of care.
[2021-10-21] MEDS: ACETAMINOPHEN 500 MG TABLET 1000 MG PO ×2 (14:47→20:29)
[2021-10-21] MEDS: traMADol HCL (*CRX) 50 MG TABLET PO (22:42)
[2021-10-22 01:35] VITALS: BP 143/61; PULSE 89; RESP 18; TEMP 36.6; O2SAT 96
[2021-10-22] MEDS: ACETAMINOPHEN 325 MG TABLET 650 MG PO (01:37)
[2021-10-22] MEDS: traMADol HCL (*CRX) 50 MG TABLET PO (05:14)
[2021-10-22] MEDS: ACETAMINOPHEN 500 MG TABLET 1000 MG PO (06:12)
[2021-10-22 06:25] VITALS: BP 131/46; PULSE 87; RESP 20; TEMP 36.3; O2SAT 99
--- NOTE | 2021-10-22 08:10 | PCPTNOTE ---
Attempted to see patient for PT at this time, however per RN patient is having a lot of pain and just gave patient pain medication. RN advised to wait on therapy.
--- NOTE | 2021-10-22 08:39 | PM.PNORT ---
Progress Note: A&P Assessment and Plan (1) Subcapital fracture of neck of right femur: Code(s): S72.011A - Unspecified intracapsular fracture of right femur, initial encounter for closed fracture Status: Acute Plan 86-year-old female postop day 3 after right bipolar hip replacement with Dr. Self. She denies any pain regarding the hip and it is primarily more in the right knee. She did have a bit of confusion yesterday so she was switched to scheduled Tylenol and p.r.n. tramadol. Continue with Eliquis during hospital stay but she will be switched to enteric-coated 325 mg aspirin daily for DVT prophylaxis on discharge. Subjective Subjective Date/Time Seen: 10/22/21 08:39 Post Op day: 3 Principal diagnosis: Status post ORIF left ankle fracture Interval history: 86-year-old female postop day 3 after right bipolar hip replacement. She is experiencing some discomfort today but it is more in and around the knee. She does report a long history of osteoarthritis of the right knee with recent steroid injection about a week ago. She reports that she would like to participate more thoroughly with therapy but is struggling due to the knee pain. Review of Systems Constitutional: Constitutional: Reports as per HPI Exam Const: General: uncomfortable ( Experiencing some knee pain) Orientation/consciousness: patient oriented x3 Limitations: no limitations Resp: Effort & Inspection: normal respiratory effort GI: Inspection: non-distended Extrem: Other: Exam of the right hip reveals a clean and dry surgical dressing. No erythema or ecchymosis to the surgical site. Neurovascular status right lower extremity is unremarkable. There is [id number] swelling globally to the right knee. Psych: Mental Status: mental status grossly normal Objective Data Vital Signs Vital Signs: Vital Signs - 24 hr 10/21/21 10:00 10/21/21 11:05 10/21/21 14:22 Temperature 97.8 F 97.9 F Pulse Rate 95 92 Respiratory Rate 20 18 Blood Pressure 74/45 L 140/64 129/95 H Pulse Oximetry 97 98 Oxygen Delivery 10/21/21 09:25 10/21/21 17:57 10/21/21 21:04 Temperature 98.6 F 98.0 F Pulse Rate 88 89 Respiratory Rate 18 20 Blood Pressure 117/59 L 129/61 Pulse Oximetry 99 98 Oxygen Delivery Room Air 10/21/21 20:00 10/22/21 01:35 10/22/21 06:25 Temperature 97.8 F 97.3 F L Pulse Rate 89 87 Respiratory Rate 18 20 Blood Pressure 143/61 H 131/46 L Pulse Oximetry 96 99 Oxygen Delivery Room Air 10/22/21 07:59 Temperature Pulse Rate Respiratory Rate Blood Pressure Pulse Oximetry Oxygen Delivery Room Air Intake/Output Intake/Output: Intake & Output 10/19/21 10/20/21 10/21/21 10/22/21 23:59 23:59 23:59 23:59 Intake Total 2280 1430 1230 450 Output Total 1665 2225 1300 800 Balance 615 -795 -70 -350 Meds/Results Medications: Active Medications Generic Name Dose Route Start Last Admin Trade Name Freq PRN Reason Stop Dose Admin Acetaminophen 650 mg 10/19/21 11:26 10/22/21 01:37 Acetaminophen 325 Mg Tablet PO 650 mg Q6H PRN Administration Mild Pain (1-3) or Fever Acetaminophen 1,000 mg 10/21/21 14:00 10/22/21 06:12 Acetaminophen 500 Mg Tablet PO 1,000 mg Q8H LEE ANN Administration Apixaban 2.5 mg 10/20/21 09:00 10/21/21 20:29 Apixaban 2.5 Mg Tablet PO 11/23/21 21:01 2.5 mg Q12HR LEE ANN Administration Ferrous Sulfate 142 mg 10/19/21 09:00 10/21/21 09:18 Ferrous Sulfate Dried 142 Mg Tabcr PO 142 mg DAILY LEE ANN Administration Gabapentin 300 mg 10/18/21 20:45 10/21/21 17:50 Gabapentin 300 Mg Capsule PO 300 mg BID LEE ANN Administration Lisinopril 20 mg 10/19/21 09:00 10/21/21 09:18 Lisinopril 20 Mg Tablet PO 20 mg DAILY LEE ANN Administration Naloxone HCl 0.1 mg 10/19/21 11:26 Naloxone Hcl 0.4 Mg/Ml Vial IV PUSH Q2M PRN Opiate Reversal Ondansetron HCl 4 mg 10/19/21 11:26 Ondansetron Inj 4 Mg/2 Ml Vial
[2021-10-22] MEDS: lisinopriL 20 MG TABLET PO (09:08)
[2021-10-22] MEDS: APIXABAN 2.5 MG TABLET PO (09:08)
[2021-10-22] MEDS: SENNA/DOCUSATE SODIUM TABLET 2 TAB PO (09:08)
[2021-10-22] MEDS: FERROUS SULFATE DRIED 142 MG TABCR PO (09:08)
[2021-10-22] MEDS: GABAPENTIN 300 MG CAPSULE PO (09:08)
[2021-10-22] MEDS: polyethylene glycoL 3350 17 GM POWD.PACK PO (09:08)
[2021-10-22 10:00] VITALS: BP 91/48; PULSE 92; RESP 16; TEMP 36.5; O2SAT 98
[2021-10-22] MEDS: LIDOCAINE 5% PATCH 1 PATCH TRANSDERM (10:03)
[2021-10-22 10:54] LABS: EDCOVIDSCREEN Negative (Negative)
--- NOTE | 2021-10-22 11:33 | PM.DS ---
DS: Admitting Diagnosis Discharge Date November 11, 2021 Admitting Diagnosis Hip fracture DS: Discharge Diagnosis Discharge Diagnosis (1) Fall from ground level: Code(s): W18.30XA - Fall on same level, unspecified, initial encounter Status: Acute Assessment and Plan: Patient reports a mechanical fall when trying to get out of the car. (2) Closed right hip fracture: Code(s): S72.001A - Fracture of unspecified part of neck of right femur, initial encounter for closed fracture Status: Deleted Assessment and Plan: Will monitor post home (3) Essential (primary) hypertension: Code(s): I10 - Essential (primary) hypertension Status: Chronic Assessment and Plan: Blood pressures were reviewed and they have been running a bit high, likely due to pain. Her antihypertensives will be reviewed and resumed as appropriate. DS: Summary Hospital Course Hospital Course: Patient is an elderly 86-year-old female who sustained a hip fracture after a fall. She was admitted and evaluated Orthopedics and had hip arthroplasty. She did well after surgical treatment. She does have some ongoing right leg pain and some pain in her right knee which is likely attributable to severe arthritis. She may need this operated on in the future as well. The patient can be discharged to skilled facility for rehab Time Spent with Patient Time attestation: Total time spent providing and/or coordinating discharge services: Exam Narrative: General: Well-developed female supine in bed in no acute distress. Weight: 68 kg. BMI: 24.9. HEENT: PERRL, EOMI. Conjunctivae anicteric. Tacky mucous membranes. Neck: Supple. No JVD or obvious carotid bruits. Respiratory: Lungs are clear to auscultation bilaterally. Cardiovascular: Regular rate and rhythm with S1-S2. 1/6 systolic murmur at the upper sternal border. Gastrointestinal: Abdomen is soft, nontender, and nondistended with positive bowel sounds. Skin: Warm and dry. No rash or lesions on limited exam. Extremities: No cyanosis, clubbing, or edema. Radial and pedal pulses intact. Musculoskeletal: Right leg is shortened and externally rotated. No gross deformities about the hip. She is tender to palpation in the anterior lateral hip and into that right groin. She is neurovascularly intact distal to the fracture. Neurological: Alert. Cranial nerves 2-12 are grossly intact. No gross focal deficits to casual conversation. Psychiatric: Pleasant and cooperative with normal mood and affect. DS: Data Data Completed and Pending Pending studies at discharge: Pending at discharge 10/21/21 08:48 Surgical [PTH] Routine Labs on day of discharge: Labs from last 24 hours 10/22/21 10:08 SARS-CoV-2 IgG/IgM Ag?Rapid Negative Discharge Plan Discharge Attending physician on discharge: Adama Ramirez Consulting providers: Samm Self ; Vandana Mckay Discharging Clinician: Adama Ramirez Patient Disposition: SNF Activity: no preference Diet: as tolerated Discharge Instructions: For Dr. Self: Plan to follow-up in our office in 2 weeks for wound check. You will be full weight-bearing on the right hip. The dressing over the right hip can come off after you leave the hospital and you may shower. Please call [facility] at [phone] with any further questions regarding the right hip. Patient Instructions: Antibiotic Form, Apixaban (By mouth) Stand Alone Forms: General Discharge Information Discharge Medications: New acetaminophen [Mapap (acetaminophen)] 325 mg Tablet 650 mg PO Q6H PRN (Reason: Mild Pain (1-3) Or Fever) Qty: 120 0RF tramadol 50 mg Tablet 50 mg PO Q6H PRN (Reason: Breakthrough Pain) 7 Days Qty: 28 0RF aspirin 325 mg capsule 325 mg PO DAILY Qty: 42 0RF Continued ferrous sulfate 325 mg (65 mg iron) tablet 26 mg PO DAILY gabapentin 300 mg capsu
== END 2021-10-22 12:30 | DRG 522 ==
LOC: ANHED 14:43 → ANH3MEDSUR 15:08 → ANH2MED 15:25
PROVIDERS: Orthopaedic Surgery; Admitting Provider Chiropractor; Emergency Provider Emergency Medicine; PCP Family Medicine; Visit Provider Chiropractor
PROC: 0SRR0J9 Replacement of Right Hip Joint, Femoral Surface with Synthetic Substitute, Cemented, Open Approach (ICD-10-PCS; CPT 27125; principal; 2021-10-19 07:30)
DX: S72.141A Displaced intertrochanteric fracture of right femur, initial encounter for closed fracture (principal); W18.39XA Other fall on same level, initial encounter; Z20.822 Contact with and (suspected) exposure to COVID-19; E78.5 Hyperlipidemia, unspecified; I10 Essential (primary) hypertension; K21.9 Gastro-esophageal reflux disease without esophagitis; M79.7 Fibromyalgia; G60.9 Hereditary and idiopathic neuropathy, unspecified; I73.00 Raynaud's syndrome without gangrene; M17.11 Unilateral primary osteoarthritis, right knee; R41.0 Disorientation, unspecified; M54.30 Sciatica, unspecified side; G89.29 Other chronic pain; K44.9 Diaphragmatic hernia without obstruction or gangrene; Z90.49 Acquired absence of other specified parts of digestive tract; Z90.710 Acquired absence of both cervix and uterus; Z87.891 Personal history of nicotine dependence; Z85.038 Personal history of other malignant neoplasm of large intestine
CPT/HCPCS: 36415; 51702; 71045; 72192; 73030; 73502; 73560; 80048; 80053; 81003; 83735; 85025; 85610; 85730; 86850; 86900; 86901; 87426; 88307; 88311; 93005; 96361; 96374; 96375; 96376; 97110; 97161; 97165; 97530; 97535; 99285; A9270; C1713; C1776; C9803; G0378; J0131; J0171; J0330; J0690; J1100; J2250; J2270; J2405; J2704; J2710; J2795; J3010; J7030; J7120; U0003; U0005

== ENCOUNTER 2021-11-21 17:30 | Outpatient (NON) | payer MEDICARE, SELFPAY ==
[2021-11-21 18:12] LABS: Appearance Urine Cloudy (Clear); Bilirubin Urine Negative (Negative); Blood Urine 2+ (Negative); Color Urine Yellow (Yellow); Glucose Urine UA Negative (Negative); Ketones Urine Negative (Negative); Leukocyte Esterase Ur 3+ LEU/UL (Negative); Nitrate Urine Negative (Negative); Protein Urine Trace mg/dL (Negative); Specific Grav Ur 1.015 (1.001-1.035); Urobilinogen Urine 0.2 mg/dL (<2.0)
[2021-11-21 18:18] LABS: Bacteria Urine Trace /hpf; Mucus Urine Rare /lpf; WBC Clumps Urine Present /HPF; WBC Urine >75 /hpf
[2021-11-21 18:19] LABS: Add Urine Microscopic? YES
== END 2021-11-21 17:31 | disposition home or self-care (01) ==
LOC: HOME HLTH 17:32
PROVIDERS: PCP Family Medicine; Visit Provider Family Medicine
DX: S72.001D Fracture of unspecified part of neck of right femur, subsequent encounter for closed fracture with routine healing (principal); I73.00 Raynaud's syndrome without gangrene; I10 Essential (primary) hypertension; G90.09 Other idiopathic peripheral autonomic neuropathy; X58.XXXD Exposure to other specified factors, subsequent encounter; Z79.891 Long term (current) use of opiate analgesic; Z79.82 Long term (current) use of aspirin; M79.7 Fibromyalgia; M15.0 Primary generalized (osteo)arthritis
CPT/HCPCS: 81001; 87086; 87147; 87181; 87186

== ENCOUNTER 2022-01-29 13:19 | Outpatient (NON) | payer MEDICARE, SELFPAY ==
[2022-01-29 18:55] LABS: Appearance Urine Clear (Clear); Bilirubin Urine Negative (Negative); Blood Urine Negative (Negative); Color Urine Yellow (Yellow); Glucose Urine UA Negative (Negative); Ketones Urine Negative (Negative); Leukocyte Esterase Ur 1+ LEU/UL (Negative); Nitrate Urine Negative (Negative); Protein Urine Negative (Negative); Specific Grav Ur 1.015 (1.001-1.035); Urobilinogen Urine 0.2 mg/dL (<2.0); pH Urine 6.5 (5.0-9.0)
[2022-01-29 19:00] LABS: Add Urine Microscopic? YES; Bacteria Urine Trace /hpf; RBC Urine 0-2 /hpf (0-2); Squamous Epithelial Cell Urine Rare /hpf (Few); WBC Urine 31-50 /hpf
== END 2022-01-29 13:20 | disposition home or self-care (01) ==
PROVIDERS: PCP Family Medicine; Visit Provider Family Medicine
DX: R35.0 Frequency of micturition (principal)
CPT/HCPCS: 81001; 87086; 87088

== ENCOUNTER 2022-02-18 11:32 | Outpatient (NON) | payer MEDICARE, SELFPAY | END 2022-02-18 11:33 | disposition home or self-care (01) | LOC: ANHGOSHLAB 11:34 | PROVIDERS: PCP Family Medicine; Visit Provider Family Medicine | DX: R35.0 Frequency of micturition (principal); N39.41 Urge incontinence | CPT/HCPCS: 87086 ==

== ENCOUNTER 2022-03-31 13:16 | Emergency (ER) | payer MEDICARE, SELFPAY ==
[2022-03-31] VITALS (39 sets, daily range): BP systolic 76–169; BP diastolic 44–120; PULSE 64–84; RESP 12–27; TEMP 36.7; O2SAT 82–100
--- NOTE | ~2022-03-31 | XR_ITS ---
EXAMINATION: XR chest 2V DATE: 03/31/2022 13:50 INDICATION: Left-sided chest pain TECHNIQUE: PA and lateral views of the chest are obtained. COMPARISON: 10/18/2021 FINDINGS: A right internal jugular Port-A-Cath ends with its tip in the midsuperior vena cava. The ele ngs are free of acute opacities. No pleural effusion or pneumothorax. The cardiomediastinal silhouett e is normal. There is moderate thoracic spondylosis. IMPRESSION: 1. No acute cardiopulmonary abnormality. Reviewed, dictated and finalized at location B. REP
--- NOTE | 2022-03-31 13:19 | ECG_ITS ---
Measurements Intervals Street Rate: 77 P: 54 DE: 149 QRS: 74 QRSD: 131 T: 48 QT: 381 QTc: 432 Interpretive Statements SINUS RHYTHM RIGHT BUNDLE BRANCH BLOCK BASELINE ARTIFACT- I, II, AVR, AVL, V4-V6 ABNORMAL ECG COMPARED TO ECG 10/18/2021 12:20:24 RIGHT BUNDLE-BRANCH BLOCK NOW PRESENT Electronically Signed On 03-31-2022 13:31:48 BISTRO ATTENDANT by Burton Sierra D.O.
[2022-03-31 13:45] LABS: Alanine Aminotransferase 31 U/L (6-35); Albumin Level 4.1 g/dL (3.5-5.1); Alkaline Phosphatase 92 U/L (38-126); Anion Gap 5 mmol/L (8-16); Aspartate Amino Transferase 33 U/L (14-36); Bilirubin,Total 0.3 mg/dL (0.2-1.3); Blood Urea Nitrogen 24 mg/dL (7-17); Calcium 8.9 mg/dL (8.4-10.2); Carbon Dioxide 32 mmol/L (22-30); Chloride 102 mmol/L (98-107); Estimated CRCL calculation 37 ml/min; Estimated Glomerular Filt Rate 60; Glucose 142 mg/dL (65-110); Lipase 61 U/L (23-300); Potassium 4.2 mmol/L (3.4-5.0); Sodium 139 mmol/L (137-145)
[2022-03-31 13:47] LABS: Basophils Percent Auto 0.4 % (0.2-1.2); Eosinophils Absolute Auto 0.2 K/mm3 (0-0.3); Eosinophils Percent Auto 2.4 % (0-4.4); Hematocrit 38.5 % (37.0-47.0); Hemoglobin 11.9 g/dL (12.0-15.0); Immature Granulocyte Absolute 0.02 K/mm3 (0.00-0.031); Immature Granulocyte Percent A 0.3 % (0-0.5); Lymphocytes Absolute Auto 1.03 K/mm3 (0.9-3.2); Lymphocytes Percent Auto 13.9 % (18.3-44.2); Mean Corpuscular HGB Conc 30.9 g/dl (32-36); Mean Corpuscular Hemoglobin 26.9 pg (26-34); Mean Corpuscular Volume 86.9 fl (80-100); Mean Platelet Volume 10.2 fl (7.4-10.4); Monocytes Absolute Auto 0.5 K/mm3 (0.1-0.6); Monocytes Percent Auto 7.1 % (2.6-8.5); Neutrophils Absolute Auto 5.6 K/mm3 (1.3-6.7); Neutrophils Percent Auto 75.9 % (45.5-73.1); Platelet Count Result 297 k/mm3 (150-375); Red Blood Count 4.43 M/mm3 (4.2-5.4); Red Cell Distribution Width 15.6 % (11.5-14.5); White Blood Count 7.4 K/mm3 (4.5-10.0)
[2022-03-31 13:56] LABS: Troponin I < 0.012 ng/mL (0.000-0.034)
[2022-03-31 14:05] LABS: Prothrombin Time 13.2 Seconds (11.1-14.7)
[2022-03-31 14:07] LABS: Partial Thromboplastin Time 30.6 SECONDS (22.3-36.8)
--- NOTE | 2022-03-31 14:49 | ED.CHESTPAIN ---
HPI - Chest Pain General Chief Complaint: Chest Pain Stated Complaint: Left Chest Pain Time Seen by Provider: 03/31/22 14:34 History of Present Illness HPI narrative: Patient is an 86-year-old female with a history of hypertension, dementia, hyperlipidemia, colon cancer in remission presenting with chest pain. Patient states that she was getting ready to go in for an appointment to have her port flushed this morning. She then developed some left-sided chest pain that went into her shoulder. Describes it as a tightness. States that she felt mildly short of breath. States that she sometimes has pain like this but typically resolves quickly. Today, the pain lasted for approximately 90 minutes before dissipating. Currently, she denies any pain whatsoever. States that she recently had a sinus infection and pinkeye but she denies new infectious symptoms. She denies headache, fever, cough, palpitations, abdominal pain, nausea or vomiting, diarrhea, leg swelling, back pain. Related Data Home Medications Medication Instructions Recorded Confirmed gabapentin 300 mg capsule 300 mg PO BID 04/23/21 03/03/22 multivitamin 1 tablet PO DAILY 11/04/21 03/03/22 donepezil 5 mg tablet 5 mg PO QHS 02/18/22 03/03/22 cholecalciferol (vitamin D3) 25 5,000 unit PO DAILY 03/03/22 03/03/22 mcg (1,000 unit) capsule ferrous sulfate 325 mg (65 mg 26 mg PO BID 03/03/22 03/03/22 iron) tablet mecobalamin (vitamin B12) 1,000 500 mcg PO .Qweekly 03/03/22 03/03/22 mcg chewable tablet Allergies Allergy/AdvReac Type Severity Reaction Status Date / Time No Known Allergies Allergy Mild Verified 03/03/22 10:25 Review of Systems Review of Systems: All systems reviewed & are unremarkable except as noted in HPI and below PMFSH Past Medical History Medical History Chronic low back pain without sciatica Dyslipidemia Essential (primary) hypertension Fibromyalgia Gastroesophageal reflux disease Hiatal hernia History of colon cancer Hypertension Idiopathic peripheral neuropathy Osteoarthritis Raynauds phenomenon Surgical History Surgical History Encounter for care related to Port-a-Cath (10/2019) History of appendectomy (02/03/1969) History of bladder surgery History of breast biopsy History of carpal tunnel release History of colectomy (09/22/19) Right sided with anastamosis. History of hysterectomy History of right hip replacement (~10/18/21) History of total hysterectomy (07/25/80) Subcapital fracture of neck of right femur Right bipolar hip replacement 10/19/2021 Family History Family History Mother Carcinoma of colon Father Acute myocardial infarction Sibling Multiple myeloma Social History Social History Social History: Surrogate medical decision maker: Prateek Wynn, . Code status: Full code. Smoking packs per day: 0.5 Smoking cigarettes per day: 10.0 Years smoked: 15 Smoking pack-years: 7.50 Smoking status: Former smoker Second hand tobacco smoke exposure: No Alcohol intake: former Alcohol use details: Drinks 2 glasses of wine a month. Substance use: never Substance use type: does not use Lack of Transportation: No Lack of Food: Never True Current Housing: I Have Housing Concerned About Future Housing: No Difficulty Paying Gas/Electric Bills: No Difficulty Paying for Meds: No Currently Unemployed: No Education: Trade/Vocational Certificate Difficulty w/ Childcare or Family Care: No Additional living arrangements comments: The patient lives with her in [place]. Gender identity (if verbalized by the patient): Female Sexual Orientation (if Verbalized by the Patient): Straight or Heterosexual Spiritual care concerns: Yes (Kannan mccain
[2022-03-31 16:40] LABS: Troponin I < 0.012 ng/mL (0.000-0.034)
[2022-03-31 19:36] LABS: Troponin I < 0.012 ng/mL (0.000-0.034)
== END 2022-03-31 20:05 | disposition home or self-care (01) ==
PROVIDERS: Emergency Medicine; Emergency Provider Emergency Medicine; PCP Family Medicine
DX: R07.89 Other chest pain (principal); F03.90 Unspecified dementia, unspecified severity, without behavioral disturbance, psychotic disturbance, mood disturbance, and anxiety; E78.5 Hyperlipidemia, unspecified; I10 Essential (primary) hypertension; I73.00 Raynaud's syndrome without gangrene; K21.9 Gastro-esophageal reflux disease without esophagitis; G60.9 Hereditary and idiopathic neuropathy, unspecified; M79.7 Fibromyalgia; M19.90 Unspecified osteoarthritis, unspecified site; Z90.49 Acquired absence of other specified parts of digestive tract; Z90.710 Acquired absence of both cervix and uterus; Z96.641 Presence of right artificial hip joint; Z85.038 Personal history of other malignant neoplasm of large intestine; Z87.891 Personal history of nicotine dependence; I45.10 Unspecified right bundle-branch block
CPT/HCPCS: 36415; 71046; 80053; 83690; 84484; 85025; 85610; 85730; 93005; 99284

== ENCOUNTER 2022-05-14 14:38 | Outpatient (CLI) | payer MEDICARE, SELFPAY ==
--- NOTE | ~2022-05-14 | CT_ITS ---
CT Abdomen and Pelvis with contrast. History: Colon cancer. Spiral CT of the abdomen and pelvis was performed after the administration of intravenous contrast. 1 00 cc of Omnipaque 350 was administered intravenously without complication. Dose reduction technique was used on this scan by utilizing automated exposure control and iterative reconstruction technique. The dose-length product (DLP) was 719.55 mGy-cm. COMPARISON: 05/23/2021 Findings: Scans through the lung bases demonstrate mild atelectatic change. The liver, spleen, pancreas, gallbladder, adrenals and kidneys are within normal limits. No evidence of aortic aneurysm. No lymphadenopathy is seen. There is no evidence of bowel obstruction. Sigmoid and descending colonic diverticulosis noted. Anast omosis noted near the ileocecal region. Images through the pelvis are degraded by streak artifact from right hip arthroplasty. Urinary bladde r appears unremarkable. No pelvic mass evident. No ascites is seen. Impression: No evidence for recurrent malignancy or metastatic disease. Postsurgical changes, as above. Reviewed, dictated and finalized at location . T GENERAL MANAGER Impression: No evidence for recurrent malignancy or metastatic disease. Postsurgical changes, as above.
== END 2022-05-14 14:39 | disposition home or self-care (01) ==
PROVIDERS: PCP Family Medicine; Visit Provider Internal Medicine Hematology & Oncology
DX: C18.8 Malignant neoplasm of overlapping sites of colon (principal)
CPT/HCPCS: 74177; Q9967

== ENCOUNTER 2022-08-01 14:20 | Outpatient (CLI) | payer MEDICARE, SELFPAY ==
--- NOTE | ~2022-08-01 | MM_ITS ---
EXAMINATION: MM screening [facility] BI w david HISTORY: Screening mammogram TECHNIQUE: Craniocaudal and mediolateral oblique 3-D tomosynthesis images were obtained and synthetic 2-D images were generated. CAD analysis was submitted and interpreted. COMPARISON: 06/14/2021, 09/15/2018, 09/10/2017 BREAST PARENCHYMAL COMPOSITION: The breasts are heterogeneously dense, which may obscure small masses . FINDINGS: No suspicious mass, calcification, or architectural distortion are identified in either crow ast to suggest malignancy. There has been no suspicious interval change. IMPRESSION: 1. No mammographic evidence of malignancy. 2. Recommend routine screening mammography in one year. BI-RADS Category 1: Negative Reviewed, dictated and finalized at location A.
== END 2022-08-01 14:21 | disposition home or self-care (01) ==
LOC: ANHIMG 14:22
PROVIDERS: PCP Family Medicine; Visit Provider Family Medicine
DX: Z12.31 Encounter for screening mammogram for malignant neoplasm of breast (principal)
CPT/HCPCS: 77063; 77067

== ENCOUNTER → 2022-09-19 11:08 | Outpatient (CLI) | payer MEDICARE, SELFPAY ==
--- NOTE | ~2022-09-19 | XR_ITS ---
EXAMINATION:XR cervical spine 4-5V DATE: 09/19/2022 11:30 INDICATION: Neck pain TECHNIQUE: AP, lateral, lateral swimmers and odontoid views of the cervical spine are provided. COMPARISON: None FINDINGS: Alignment is normal. The odontoid process is intact. No fracture is identified. The vertebr al body heights are maintained. There is moderate loss of intervertebral disc space height at C5-6 an d C6-7. Prevertebral soft tissues are normal. There is multilevel moderate facet and uncovertebral stephan int osteoarthritis. A right internal jugular Port-A-Cath ends with its tip in the proximal superior v lorenza cava. IMPRESSION: 1. Moderate cervical spondylosis without acute findings. Reviewed, dictated and finalized at location B.
--- NOTE | ~2022-09-19 | XR_ITS ---
Clinical Indication: Chest pain PA and lateral views of the chest: Comparison: 03/31/2022 Findings: Right-sided Mediport in place. The lungs are clear, without evidence of focal consolidation or pleural effusion. Cardiomediastinal silhouette is within normal limits. Bones and soft tissues a re unremarkable. Impression: Clear lungs. Right-sided Mediport. Reviewed, dictated and finalized at location M. Impression: Clear lungs. Right-sided Mediport.
== END ==
PROVIDERS: PCP Family Medicine; Visit Provider Nurse Practitioner Family
DX: R07.9 Chest pain, unspecified (principal); M47.892 Other spondylosis, cervical region
CPT/HCPCS: 71046; 72050

== ENCOUNTER 2022-10-27 09:27 | Outpatient (CLI) | payer MEDICARE, SELFPAY ==
[2022-10-27 09:56] LABS: Basophils Percent Auto 0.6 % (0.2-1.2); Eosinophils Absolute Auto 0.1 K/mm3 (0-0.3); Eosinophils Percent Auto 2.7 % (0-4.4); Hematocrit 38.4 % (37.0-47.0); Hemoglobin 12.2 g/dL (12.0-15.0); Immature Granulocyte Absolute 0.01 K/mm3 (0.00-0.031); Immature Granulocyte Percent A 0.2 % (0-0.5); Lymphocytes Absolute Auto 0.88 K/mm3 (0.9-3.2); Lymphocytes Percent Auto 17.1 % (18.3-44.2); Mean Corpuscular HGB Conc 31.8 g/dl (32-36); Mean Corpuscular Hemoglobin 27.8 pg (26-34); Mean Corpuscular Volume 87.5 fl (80-100); Mean Platelet Volume 9.5 fl (7.4-10.4); Monocytes Absolute Auto 0.4 K/mm3 (0.1-0.6); Monocytes Percent Auto 8.1 % (2.6-8.5); Neutrophils Absolute Auto 3.7 K/mm3 (1.3-6.7); Neutrophils Percent Auto 71.3 % (45.5-73.1); Platelet Count Result 221 k/mm3 (150-375); Red Blood Count 4.39 M/mm3 (4.2-5.4); Red Cell Distribution Width 13.7 % (11.5-14.5); White Blood Count 5.2 K/mm3 (4.5-10.0)
[2022-10-27 11:21] LABS: Alanine Aminotransferase 18 U/L (6-35); Albumin Level 4.1 g/dL (3.5-5.1); Alkaline Phosphatase 91 U/L (38-126); Anion Gap 5 mmol/L (8-16); Aspartate Amino Transferase 23 U/L (14-36); Bilirubin,Total 0.4 mg/dL (0.2-1.3); Blood Urea Nitrogen 19 mg/dL (7-17); Calcium 9.3 mg/dL (8.4-10.2); Carbon Dioxide 33 mmol/L (22-30); Chloride 103 mmol/L (98-107); Estimated Glomerular Filt Rate 53; Glucose 108 mg/dL (65-110); Potassium 4.2 mmol/L (3.4-5.0); Sodium 141 mmol/L (137-145)
[2022-10-27 11:50] LABS: Carcinoembryonic Antigen 2.7 ng/mL (0.0-3.0)
== END 2022-10-27 09:28 | disposition home or self-care (01) ==
LOC: ANHLAB 09:29
PROVIDERS: PCP Family Medicine; Visit Provider Internal Medicine Hematology & Oncology
DX: C18.8 Malignant neoplasm of overlapping sites of colon (principal)
CPT/HCPCS: 36415; 80053; 82378; 85025

== ENCOUNTER 2023-05-14 08:32 | Outpatient (CLI) | payer MEDICARE, SELFPAY ==
--- NOTE | ~2023-05-14 | CT_ITS ---
Non-contrast CT scan of the Abdomen and Pelvis Clinical indication: Colon cancer Technique: 2.5 mm axial scans were obtained through the abdomen and pelvis without intravenous or or al contrast. Dose reduction technique was used on this scan by utilizing automated exposure control a nd iterative reconstruction technique. The dose-length product (DLP) was 708.29 mGy-cm. COMPARISON: 05/14/2022 Findings: Images through the lung bases reveal no abnormalities. There is no evidence of renal or ureteral calculi. The kidneys and the ureters are nondilated. The liver, spleen, pancreas, gallbladder, and adrenals appear normal. There are atherosclerotic calci fications of the aorta. There is no evidence of bowel obstruction. Colonic diverticulosis noted. Partial right colectomy doll ge noted. Images through the pelvis are degraded by streak artifact from right hip arthroplasty. There is no ev idence of ascites or lymphadenopathy. Urinary bladder appears unremarkable. No pelvic mass seen. Impression: No evidence for active malignancy or metastatic disease. Reviewed, dictated and finalized at [facility]. OR DIRECTOR CREATIVE SERVICES Impression: No evidence for active malignancy or metastatic disease.
== END 2023-05-14 08:33 | disposition home or self-care (01) ==
PROVIDERS: PCP Family Medicine; Visit Provider Internal Medicine Hematology & Oncology
DX: C18.8 Malignant neoplasm of overlapping sites of colon (principal)
CPT/HCPCS: 74176

== ENCOUNTER 2023-09-29 10:56 | Outpatient (CLI) | payer MEDICARE, SELFPAY ==
--- NOTE | ~2023-09-29 | CT_ITS ---
CT pelvis wo con Ordering provider: Gregg Whyte MD History: . Pain in right hip; posterior right iliac crest/SI pain . Comparison: May 14, 2023 Technique: CT pelvis without oral and IV contrast. . Automated exposure control and iterative recons truction technique were employed. The dose-length product was 396.54 mGy-cm. Findings: BONES: Small chip of bone is seen lateral to the right acetabulum which is chronic. No acute pelvic f racture or hip dislocation. Age appropriate degenerative changes of the visualized lower lumbar spine . Right hip arthroplasty. Mild to moderate left hip osteoarthritic changes. Normal sacroiliac joints. SUPERFICIAL SOFT TISSUES: Normal. PELVIC ORGANS: The bladder is normal. VISUALIZED BOWEL AND MESENTERY: Diverticulosis of the sigmoid colon. Postoperative changes in the rig ht side of the colon.. No free air or free fluid. No lymphadenopathy. RETROPERITONEUM: Mild atheromatous disease. IMPRESSION: No acute fractures seen in the pelvic bones. Old chip fracture seen adjacent to the right acetabulum. Reviewed, dictated and finalized at location A.
== END 2023-09-29 10:57 ==
LOC: GOSHIMG 10:57
PROVIDERS: PCP Family Medicine; Visit Provider Orthopaedic Surgery
DX: R10.2 Pelvic and perineal pain (principal); M25.559 Pain in unspecified hip
CPT/HCPCS: 72192

== ENCOUNTER 2023-10-07 14:10 | Outpatient (CLI) | payer MEDICARE, SELFPAY ==
--- NOTE | ~2023-10-07 | MM_ITS ---
EXAMINATION: MM screening [facility] BI w david HISTORY: Screening TECHNIQUE: Craniocaudal and mediolateral oblique 3-D tomosynthesis images were obtained and synthetic 2-D images were generated. CAD analysis was submitted and interpreted. COMPARISON: Comparison to multiple prior studies sequentially, with oldest reviewed study dated 11/2015. BREAST PARENCHYMAL COMPOSITION: Not dense: There are scattered areas of fibroglandular density. FINDINGS: There is no evidence of suspicious mass, calcification, or architectural distortion to sugg est malignancy in either breast. There has been no suspicious interval change. IMPRESSION: 1. No mammographic evidence of malignancy. 2. Recommend routine screening mammography in one year. BI-RADS Category 1: Negative Reviewed, dictated and finalized at location B.
== END 2023-10-07 14:11 | disposition home or self-care (01) ==
LOC: ANHIMG 14:11
PROVIDERS: PCP Family Medicine; Visit Provider Family Medicine
DX: Z12.31 Encounter for screening mammogram for malignant neoplasm of breast (principal)
CPT/HCPCS: 77063; 77067

== ENCOUNTER 2023-11-02 09:00 | Outpatient (CLI) | payer MEDICARE, SELFPAY ==
[2023-11-02 09:32] LABS: Basophils Absolute Auto 0.1 K/mm3 (0.0-0.1); Eosinophils Absolute Auto 0.2 K/mm3 (0-0.3); Eosinophils Percent Auto 2.9 % (0-4.4); Hematocrit 37.8 % (37.0-47.0); Hemoglobin 12.1 g/dL (12.0-15.0); Immature Granulocyte Absolute 0.01 K/mm3 (0.00-0.031); Immature Granulocyte Percent A 0.2 % (0-0.5); Lymphocytes Absolute Auto 0.96 K/mm3 (0.9-3.2); Lymphocytes Percent Auto 18.8 % (18.3-44.2); Mean Corpuscular Hemoglobin 28.4 pg (26-34); Mean Corpuscular Volume 88.7 fl (80-100); Mean Platelet Volume 9.8 fl (7.4-10.4); Monocytes Absolute Auto 0.4 K/mm3 (0.1-0.6); Monocytes Percent Auto 7.6 % (2.6-8.5); Neutrophils Absolute Auto 3.5 K/mm3 (1.3-6.7); Neutrophils Percent Auto 69.5 % (45.5-73.1); Platelet Count Result 219 k/mm3 (150-375); Red Blood Count 4.26 M/mm3 (4.2-5.4); Red Cell Distribution Width 13.7 % (11.5-14.5); White Blood Count 5.1 K/mm3 (4.5-10.0)
[2023-11-02 10:24] LABS: Alanine Aminotransferase 25 U/L (6-35); Albumin Level 4.1 g/dL (3.5-5.1); Alkaline Phosphatase 87 U/L (38-126); Anion Gap 7 mmol/L (4-12); Aspartate Amino Transferase 34 U/L (14-36); Bilirubin,Total 0.5 mg/dL (0.2-1.3); Blood Urea Nitrogen 23 mg/dL (7-17); Calcium 9.1 mg/dL (8.4-10.2); Carbon Dioxide 31 mmol/L (22-30); Chloride 101 mmol/L (98-107); Estimated Glomerular Filt Rate 53; Glucose 103 mg/dL (65-110); Potassium 4.5 mmol/L (3.4-5.0); Sodium 139 mmol/L (137-145)
[2023-11-02 10:51] LABS: Carcinoembryonic Antigen 3.3 ng/mL (0.0-3.0)
== END 2023-11-02 09:01 | disposition home or self-care (01) ==
LOC: ANHLAB 09:03
PROVIDERS: PCP Family Medicine; Visit Provider Internal Medicine Hematology & Oncology
DX: C18.8 Malignant neoplasm of overlapping sites of colon (principal); I10 Essential (primary) hypertension; R73.03 Prediabetes
CPT/HCPCS: 36415; 80053; 82378; 83036; 85025

== ENCOUNTER 2024-08-31 09:38 | Outpatient (CLI) | payer MEDICARE, SELFPAY ==
--- OUTSIDE RECORDS SUMMARY | 2024-08-31 10:37 | XMS_ITS | Clinical Summary ---
Author Organization [facility] Address [address] [place] [address] Care Team Providers Care Research Program Internship Name Role Phone Michael Higgins MD Primary Care Provider Allergies No known active allergies Medications lidocaine 1 % (XYLOCAINE) Solution lidocaine (PF) 10 mg/mL (1 %) injection solution In office injection administered by the provider Active lisinopriL (PRINIVIL) 20 mg tablet Take 20 mg by mouth daily. 3 Active donepeziL (ARICEPT) 10 mg tablet TAKE 1 TABLET BY MOUTH EVERY NIGHT 3 Active lidocaine-pril ocaine (EMLA) 2.5-2.5 % CreamIndicatio ns:Malignant neoplasm of ascending colon (CMS/HCC) Apply to affected area see administration instructions. Apply to port site 30 minutes prior to access 30 Gram 1 4 Active gabapentin (NEURONTIN) 300 mg capsuleIndicat ions:Overlappi ng malignant neoplasm of colon (CMS/HCC) TAKE 1 CAPSULE(300 MG) BY MOUTH TWICE DAILY 60 Capsule 3 4 Active vibegron (Gemtesa) 75 mg Tablet Take 75 mg by mouth daily. Active Cholecalcifero l, Vitamin D3, 50 mcg (2,000 unit) Capsule Take by mouth. A ctive ferrous sulfate 134 mg (27 mg iron) Tablet Take 134 mg by mouth. Active cyanocobalamin (VITAMIN B-12) 500 mcg tablet Take 500 mcg by mouth daily. Active Active Problems Problem Noted Date Diagnosed Date Fibromyalgia 02/01/2020 HTN (hypertension), benign 02/01/2020 Overlapping malignant neoplasm of colon 11/07/19 20 Encounters Date Type Department Care Team Description 08/30/2024 Telephone [facility] [address] [place] [address] Hardik Chapa MD Abdominal Pain 08/23/2024 External Device Data [facility] ABSTRACTION Provider, Abstract 08/16/2024 External Device Data [facility] ABSTRACTION Provider, Abstract 08/11/2024 External Device Data [facility] ABSTRACTION Provider, Abstract 08/10/2024 External Device Data [facility] ABSTRACTION Provider, Abstract 07/15/2024 2:00 PM CDT Office Visit [facility] [address] [place] [address] Vicki Crawford MD Malignant neoplasm of ascending colon (CMS/HCC) (Primary Dx) 07/15/2024 Orders Only [facility] [address] [place] [address] Vicki Crawford MD Overlapping malignant neoplasm of colon (CMS/HCC) (Primary Dx) 07/11/2024 Orders Only [facility] [address] [place] [address] Hardik Chapa MD 06/08/2024 External Device Data STL ABSTRACTION Provider, Abstract from Last 3 Months Family History Medical History Relation Name Comments Cancer Father Heart Disease Father Cancer Mother Relation Name Status Comments Brother Father Mother Sister Alive Social History Tobacco Use Types Packs/Day Years Used Date Smoking Tobacco: Former Cigarettes 0.5 17 0 10/16/1956 - 10/16/1973 Smokeless Tobacco: Never Tobacco Cessation:Counseling Given: Not Answered Alcohol Use Standard Drinks/Week Comments Never 0 (1 standard drink = 0.6 oz pur e alcohol) Comments No Sex and Gender Information Value Date Recorded Sex Assigned at Female 02/16/2024 5:57 PM INTERIOR DECORATOR PAPERHANGING Legal Sex Female 8:34 AM CDT Gender Identity Female 02/16/2024 5:57 PM INTERIOR DECORATOR PAPERHANGING Sexual Orientation Not on file Last Filed Vital Signs Vital Sign Reading Time Taken Comments Blood Pressure 123/61 07/15/2024 1:56 PM CDT Pulse 72 07/15/2024 1:56 PM CDT Temperature 36.8 C (98.2 F) 07/15/2024 1:56 PM CDT Respiratory Rate 15 07/15/2024 1:56 PM CDT Oxygen Saturation 97% 07/15/2024 1:56 PM CDT Inhaled Oxygen Concentration - - Weight 64.4 kg (142 lb) 07/15/2024 1:56 PM CDT Height 172.7 cm (5' 8) 10/02/2021 2:32 PM CDT Body Mass Index 21.59 10/02/2021 2:32 PM CDT Plan of Treatment Upcoming Encounters Date Type Department Care Team (Late st Contact Info) Description 09/15/2024 4:30 PM CDT Telephone Check Up [facility] [place] [address] [facility] [address] [place] [address] Hardik Chapa MD [address] [place] [address] Health Maintenance Due Date Last Done Comments DTAP/TDAP/TD VACCINES (1 - Tdap) 1954 PNEUMOCOCCAL VACCINE 50+ YEA RS (1 of 1 - PCV) 06/13/1987 ZOSTER VACCINE (1 of 2) 06/13/1987 OSTEOPOROSIS SCREENING 2002 RSV VACCINE (60+ or ) (1 - 1-dose 75+ series) 2012 INFLUENZA VACCINE (#1) 2023 01/09/2020, 2019 Procedures Procedure Name Priority Date/Time Associated Diagnosis Comments COMPREHENSIVE METABOLIC PANEL Routine 07/11/2024 3:12 PM CDT from Last 3 Months Results * COMPREHENSIVE METABOLIC PANEL (07/11/2024 3:12 PM CDT) Blood us Hardik Chapa MD CHEMISTRY ORDERABLES Final Resu lt from Last 3 Months Insurance [facility] [id number] Advance Directives For more information, please contact: [phone] Documents on File Type Date Recorded Patient Paste Up Artist Expl anation Advance Directive POA 11/07/2019 9:04 AM A dvance Directive POA Care Teams Research Program Internship Relationship Specialty Start Date End Date Michael Higgins MD [address] [place] [id number] PCP - General Family Practice 09/30/19
--- OUTSIDE RECORDS SUMMARY | 2024-08-31 10:37 | XMS_ITS | Clinical Summary ---
Author Organization [facility] Medical Office Building B Address [address] [place] [address] Care Team Providers Care Lay Out Drafter Name Role Phone Michael Higgins MD Primary Care Provider Allergies No known active allergies Medications meloxicam (MOBIC) 15 mg tablet Take 1 tablet by mouth daily. 8 Active traMADol (ULTRAM) 50 mg tablet Take 50 mg by mouth 2 (two) times a day. 3 8 Active cholecalciferol (VITAMIN D-3) 1,000 unit tablet Take 1 tablet (1,000 Units total) by mouth Active ukebyknh-yrzbt-w yalu-CF borate 750 mg-100 mg- 1.65 mg-108 mg tablet Take by mouth. Active prochlorperazine (COMPAZINE) 10 mg tablet Take 10 mg by mouth every 6 (six) hours as needed for nausea or vomiting Active gabapentin (NEURONTIN) 300 mg capsule 2 Active nitrofurantoin monohydrate (MACROBID) 100 mg capsule TAKE 1 CAPSULE BY MOUTH EVERY 12 HOURS FOR 7 DAYS TAKE WITH FOOD 2 Active donepeziL (ARICEPT) 10 mg tablet Take 1 tablet (10 mg total) by mouth nightly 2 Active oxybutynin XL (DITROPAN-XL) 10 mg 24 hr tablet Take 1 tablet (10 mg total) by mouth daily 2 Active cyanocobalamin (Vitamin B-12) 500 mcg tabletIndication s:Prevention of Vitamin B12 Deficiency Take 1 tablet (500 mcg total) by mouth once a week Active lisinopriL (PRINIVIL,ZESTRI L) 20 mg tablet Take 1 tablet (20 mg total) by mouth daily 3 Active Active Problems Problem Noted Date Diagnosed Date Oral lesion 01/10/2018 Assessment & Plan (01/10/2018 11:24 AM CDT): During today's examination I did not perceive any suspicious neoplastic lesion within the oral cavity. Patient looks like she has chronic mucosal irritation with superficial ulceration along the right posterior upper alveolus secondary to a poor fitting denture. Recommend keeping denture out of mouth as often as possible. Patient should consult with her dentist and see if adjustments can be made to the denture. Should the lesion continued to persist within the next month she should return back to my office for re-evaluation with possible biopsy. Surgical History Surgery Date Site/Laterality Comments COLON SURGERY 09/21/2019 - 10/21/2019 JOINT REPLACEMENT 10/19/2021 Right Right Hip Replacement Medical History Medical History Date Comments Hypertension Hypertension Hx Other Medical 2012 pelvic sling; C omments: EMB 02/02/2015 - Hyperlipidemia Colon cancer (HCC) 2019 Social History Tobacco Use Types Packs/Day Years Used Date Smoking Tobacco: Never Smokeless Tobacco: Never Tobacco Cessation:Counseling Given: Not Answered Alcohol Use Standard Drinks/Week Comments No 0 (1 standard drink = 0.6 oz pur e alcohol) Personal Safety Answer Date Recorded Getting School Help Needed Not on file 03/06 Comments No Sex and Gender Information Value Date Recorded Sex Assigned at Not on file Legal Sex Female 3:52 AM STONE ENGRAVER Gender Identity Not on file Sexual Orientation Not on file Obstetrics History Last Filed Vital Signs Vital Sign Reading Time Taken Comments Blood Pressure 142/70 07/18/2022 1:04 PM CDT Pulse 79 07/18/2022 1:04 PM CDT Temperature - - Respiratory Rate 16 01/01/2018 2:50 PM CDT Oxygen Saturation 97% 07/18/2022 1:04 PM CDT Inhaled Oxygen Concentration - - Weight 70.3 kg (155 lb) 07/18/2022 1:04 PM CDT Height 165.1 cm (5' 5) 07/18/2022 1:04 PM CDT Body Mass Index 25.79 07/18/2022 1:04 PM CDT Plan of Treatment Health Maintenance Due Date Last Done Comments Depression Screening 1937 Fall Risk Assessment 1935 DTaP/Tdap/Td Vaccine (1 - Tdap) 1948 Hepatitis B Screening 06/13/1955 Pneumococcal vaccine 65+ (1 of 1 - PCV) 06/13/1987 Zoster Vaccine (1 of 2) 06/13/1987 Well Visit 65+ 2002 Influenza Vaccine (Season Ended) 2024 01/20/[address] [place] [address] [place] [id number] [facility] [place] [address] [place] [id number] Care Teams Lay Out Drafter Relationship Specialty Start Date End Date Michael Higgins MD PCP - General Family Practice 12/14/17
--- OUTSIDE RECORDS SUMMARY | 2024-08-31 10:37 | XMS_ITS | Continuity of Care Document ---
Author Organization [facility] Address [address] [place] [address] [place] [address] Phone Care Team Providers Care Retinal Surgeon Name Role Phone Kayleen Galvez Unavailable Unavailable Procedures Procedure Date Office/outpatient Visit, Est Office/outpatient Visit, Est Office/outpatient Visit, Est Office/outpatient Visit, Est Eye Exam Established Pt Office/outpatient Visit, New Advance Directives Directive Yes / No Effective Date File Name No Information Encounters Encounter Description Practice Location Reason(s) For Visit Diagnoses Date Provider Providers Copied on Encounter Office/outpat ient Visit, [facility] [place], [address] [place] [address] [address], [place], [place], [id number], tel:[phone] [facility] No Information Mar-1 1-200 8 Leonor Moore [address] [facility] , [address], [place], [place], [facility], . tel:[phone] Office/outpat ient Visit, [facility] [place], [address] [place] [address] [address], [place], [place], [id number], tel:[phone] [facility] No Information Mar-0 4-200 8 Leonor Moore [address] [facility] [address], [place], [place], [facility], [place]. tel:[phone] Referring Provider: Dewayne Burger, [address], [place], [place], [facility]. tel:[phone] Office/outpat ient Visit, [facility], [address], [place], [place], [id number], tel:[phone] [facility] No Information Apr- 8-200 8 Cervantes OD Dewayne. [address] , [address], [place], [facility], . tel:[phone] Office/outpat ient Visit, [facility], [address] [place] [address] [address], [place], [place], [id number], [place] tel:[phone] [facility] No Information 2-200 8 Cervantes OD Dewayne. [address] , [address], [place], [place], [facility], . tel:[phone] [facility], [address] [place] [address] [address], [place], [place], [id number], tel:[phone] [facility] No Information 9-200 8 Galvez Kayleen. [address] [facility] , [address], [place], [facility], . tel:[phone] Office/outpat ient Visit, [facility], [address] [place] [address] [address], [place], [place], [id number], tel:[phone] [facility] No Information 5-200 8 Cervantes OD Dewayne. [address] , [address], [place], [facility], . tel:[phone] Family History Family Member Type Diagnosis Age At Onset No Information Payers Payer name Insurance type Covered libertarian ID Authoriza tion(s) No Information Social History [...]
--- OUTSIDE RECORDS SUMMARY | 2024-08-31 10:37 | XMS_ITS | Encounter Summary ---
Author Organization [facility] Address [address] [place] [address] Care Team Providers Care Lean Leader Name Role Phone Michael Higgins MD Primary Care Provider Reason for Referral * PET Scan (Routine) - Pending Review Specialty Diagnoses / Procedures Referred By Contac t Referred To Contact Diagnoses Overlapping malignant neoplasm of colon (CMS/HCC) Procedures PET TUMOR OR INFECTION IMG W CT SKB MD Hardik Chapa MD [address] [place] [address] Phone: tel: fax: [place] [phone] Referral ID Status Reason Start Date Expiration Date Visits Requested Visits Authorized [id number] Pending Review [facility] CTS 08/30/2024 09/30/2025 1 1 Reason for Visit * Reason Onset Date Comments Abdominal Pain 08/30/2024 Encounter Details Date Type Department Care Team (Late st Contact Info) Description 08/30/2024 Telephone [facility] Oncology and Hematology - [place] [address] [facility] [address] [place] [address] Hardik Chapa MD [address] [place] [address] Abdominal Pain Social History Tobacco Use Types Packs/Day Years Used Date Smoking Tobacco: Former Cigarettes 0.5 17 0 10/16/1956 - 10/16/1973 Smokeless Tobacco: Never Alcohol Use Standard Drinks/Week Comments Never 0 (1 standard drink = 0.6 oz pur e alcohol) Comments No Sex and Gender Information Value Date Recorded Sex Assigned at Female 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 Will get shceduled with [place] and call the patient's daughter with date and time. * Telephone Encounter - Lori Mckeon - 08/30/2024 12:27 PM CDT ----- Message from Dr. Hardik Chapa sent at 08/30/2024 12:24 PM CDT ----- Regarding: RE: Increased Pain Order PET/CT now. If not approved then order CT abdomen and pelvis. ----- Message ----- From: Lori Mckeon Sent: 08/30/2024 9:16 AM CDT To: Hardik Chapa MD Subject: Increased Pain Patient's daughter called and stated that her mom is having a lot of pain in her abdominal area. When asked where the pain is she is not really giving a certain area, just generalized all over. Last appointment she seen Dr. Duron and her CEA had went up. They are wanting to know what next steps would be? Please advise. documented in this encounter Plan of Treatment Upcoming Encounters Date Type Department Care Team (Late st Contact Info) Description 09/15/2024 4:30 PM CDT Telephone Check Up [facility] Oncology and Hematology - [place] [address] [place] [address] Hardik Chapa MD [address] [facility] [address] [place] [id number] Scheduled Orders Name Type Priority Associated Diagnoses Orde r Schedule PET TUMOR OR INFECTION IMG W CT SKB MDTH Imaging Routine Overlapping malignant neoplasm of colon (CMS/HCC) Expected: 08/30/2024, Expires: 08/30/2025 documented as of this encounter Visit Diagnoses Diagnosis Overlapping malignant neoplasm of colon (CMS/HCC)- Primary documented in this encounter Care Teams Lean Leader Relationship Specialty Start Date End Date Michael Higgins MD [address] [place] [address] PCP - General Family Practice 09/30/19 documented as of this encounter
--- OUTSIDE RECORDS SUMMARY | 2024-08-31 10:37 | XMS_ITS | Clinical Summary ---
Author Organization [facility] [employer] Address [address] [place] [address] Care Team Providers Care Patient Transportation Driver Name Role Phone Michael Higgins MD Primary Care Provider Source Comments [facility],non-owned Affiliates and Associated Physician Practices is amultiple site organization consisting of ambulatory clinics and hospital sitesin [place], [place], [place] and [place]. This disclosure is being madepursuant to the Care Everywhere program and may not contain all information available regarding this patient. Last updated 17.[facility] [employer] Allergies No known active allergies Medications * Be aware that medications may not be up to date on this document. Alwaysverify current medications with the patient. traMADol (ULTRAM) 50 MG tablet Take 50 mg by mouth every 6 hours as needed. Active meloxicam (MOBIC) 15 MG tablet Take 15 mg by mouth once daily. Active quinapril (ACCUPRIL) 20 MG tablet Take 20 mg by mouth once daily. Active multivitamin daily (THERAGRAN) tablet Take 1 Tab by mouth daily with food. Active vitamin D, cholecalciferol, 1000 UNIT tablet Take 1,000 Units by mouth once daily. Active glucosamine-lucio droitin (GLUCOSAMINE CHONDR COMPLEX) 500-400 MG capsule Take 2 Caps by mouth once daily. Active Active Problems Problem Noted Date Diagnosed Date Osteoarthrosis 06/07/2019 Midline cystocele 01/14/2018 Resolved Problems Problem Noted Date Diagnosed Date Resolved Date Constipation 05/22/2011 02/11/2018 Immunizations Immunization Administration Dates Next Due INFLUENZA VACCINE, HIGH-DOSE , QUADR. 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 Gender Identity Not on file Sexual Orientation Not on file Last Filed Vital Signs Vital Sign Reading Time Taken Comments Blood Pressure 110/74 06/07/2019 10:19 AM CDT Pulse 88 07/15/2011 8:58 AM CDT Temperature 36.6 C (97.8 F) 07/15/2011 8:58 AM CDT Respiratory Rate 20 07/15/2011 8:58 AM CDT Oxygen Saturation 100% 07/15/2011 8:58 AM CDT Inhaled Oxygen Concentration - - Weight 75.8 kg (167 lb) 06/07/2019 10:19 AM CDT Height 172.7 cm (5' 8) 06/07/2019 10:19 AM CDT Body Mass Index 25.39 06/07/2019 10:19 AM CDT Plan of Treatment Health Maintenance Due Date Last Done Comments BONE DENSITY TESTING 1935 DTAP/TDAP/TD VACCINES (1 - Tdap) 1956 PNEUMOCOCCAL VACCINE 50+ (1 of 1 - PCV) 06/13/1987 ZOSTER VACCINE (1 of 2) 06/13/1987 Respiratory Syncytial Virus (RSV) Vaccine Pt: or over 60 yrs (1 - 1-dose 75+ series) 2012 COVID-19 VACCINE (1 - 2023-2 5 season) 2023 DEPRESSION SCREENING 03/23/2024 INFLUENZA VACCINE (Season Ended) 2024 01/09/20 20 HEPATITIS B VACCINE Aged Out No longe r eligible based on patient's age to complete this topic HIB VACCINE Aged Out No longer eligi ble based on patient's age to complete this topic HPV VACCINE Aged Out No longer eligi ble based on patient's age to complete this topic MENINGOCOCCAL (Group B) VACC INE SHARED DECISION-MAKING Aged Out No longer eligibl e based on patient's age to complete this topic MENINGOCOCCAL GROUPS A/C/Y/W VACCINE Aged Out No longer eligible b ased on patient's age to complete this topic Insurance [facility] MANAGED MEDICARE ADV [employer] MANAGED MEDICARE ADV Advance Directives Documents on File Type Date Recorded Patient Manager Staffing Expl anation Adv Directive/Living Will/POA 07/18/2011 9:36 AM * FULL RESUSCITATION (Latest Code Status on File) Date Activated Date Inactivated Comments 07/14/2011 12:44 PM 07/15/2011 11:04 PM Care Teams Patient Transportation Driver Relationship Specialty Start Date End Date Michael Higgins MD [address] [place] [phone] PCP - General 10/01/17
--- OUTSIDE RECORDS SUMMARY | 2024-08-31 10:37 | XMS_ITS | Referral Summary ---
Author Organization [facility] Medical Office Building B Address [address] [place] [address] Care Team Providers Care Optometrist/Practice Owner Name Role Phone Michael Higgins MD Primary Care Provider Allergies No known active allergies Medications meloxicam (MOBIC) 15 mg tablet Take 1 tablet by mouth daily. 8 Active traMADol (ULTRAM) 50 mg tablet Take 50 mg by mouth 2 (two) times a day. 3 8 Active cholecalciferol (VITAMIN D-3) 1,000 unit tablet Take 1 tablet (1,000 Units total) by mouth Active klprogvh-pyyik-e yalu-CF borate 750 mg-100 mg- 1.65 mg-108 [...] my office for re-evaluation with possible biopsy. 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
--- OUTSIDE RECORDS SUMMARY | 2024-08-31 10:37 | XMS_ITS | Clinical Summary ---
Author Organization [facility] Address [address] [place] [address] Phone Care Team Providers Care Consulting Psychologist Name Role Phone Michael Higgins MD Primary Care Provider Davion Benitez MD Unavailable [phone] Allergies No known active allergies Medications ferrous sulfate 325 (65 Fe) MG Tablet Take 325 mg by mouth daily. Active gabapentin (NEURONTIN) 300 MG Capsule Take 300 mg by mouth in the morning and at bedtime. Active quinapril (ACCUPRIL) 20 MG Tablet Take 20 mg by mouth every evening. Active CHOLECALCIFEROL PO Take by mouth. Active Multiple Vitamin (MULTIVITAMIN PO) Take by mouth. Active Vibegron (Gemtesa) 75 MG Tablet Take by mouth. Active Apoaequorin (PREVAGEN PO) Take by mouth. Active donepezil (ARICEPT) 10 MG Tablet Take 1 Tablet by mouth nightly. 90 Tablet 1 07/25/2024 Active Encounters Date Type Department Care Team Description 07/25/2024 Refill [facility] - [facility] [address] [place] [address] Davion Benitez MD from Last 3 Months Family History Medical History Relation Name Comments Colon Cancer Mother Relation Name Status Comments Mother Social History Tobacco Use Types Packs/Day Years Used Date Smoking Tobacco: Former Cigarettes Q uit: 03/23/1973 Smokeless Tobacco: Never Tobacco Cessation:Counseling Given: Not Answered Alcohol Use Standard Drinks/Week Comments Never 0 (1 standard drink = 0.6 oz pur e alcohol) Comments Unknown Sex and Gender Information Value Date Recorded Sex Assigned at Not on file Legal Sex Female 11:27 AM CDT Gender Identity Not on file Sexual Orientation Not on file Last Filed Vital Signs Vital Sign Reading Time Taken Comments Blood Pressure 120/74 04/12/2024 1:29 PM 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 Pulse 62 2023 10:37 AM CDT Temperature 36.3 C (97.4 F) 04/12/2024 1:29 PM 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 Respiratory Rate 17 04/12/2024 1:29 PM 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 Oxygen Saturation 96% 2023 10: 37 AM CDT Inhaled Oxygen Concentration - - Weight 65.7 kg (144 lb 12.8 oz) 04/12/2024 1:29 PM 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 Height 165.1 cm (5' 5) 04/12/2024 1:29 PM 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 Body Mass Index 24.1 04/12/2024 1:29 PM 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 Plan of Treatment Upcoming Encounters Date Type Department Care Team (Late st Contact Info) Description 10/10/2024 2:00 PM CDT Office Visit [facility] - [facility] [address] [place] [address] Davion Benitez MD [address] [place] [address] Health Maintenance Due Date Last Done Comments DEXA Bone Density 1935 Hepatitis C Virus (HCV) Screening 1935 TdaP Immunization 1935 Pneumococcal Immunization (50+ years) (1 of 1 - PCV) 06/13/1987 Zoster Immunization (1 of 2) 06/13/1987 Respiratory Syncytial Virus (RSV) Immunization (Adult) (1 - 1-dose 75+ series) 2012 SARS-COV-2 Immunization ( season) 2023 01/12/2023, 10/14/2021, 02/22/2021, Additional history exists Influenza Immunization (Season Ended) 2024 01/12/2023, 01/15/2022, 01/09/2021, Additional history exists Hepatitis B Immunization Aged Out No longer eligible based on patient's age to complete this topic Human Papillomavirus (HPV) Immunization Aged Out No longer eligible based on patient's age to complete this topic Meningococcal Immunization (ACWY) Aged Out No longer eligible based on patient's age to complete this topic Rotavirus Immunization Aged Out No lo nger eligible based on patient's age to complete this topic Insurance MEDICARE C [employer] Care Teams Consulting Psychologist Relationship Specialty Start Date End Date Michael Higgins MD PCP - General Family Medicine 10/10/21 Davion Benitez MD [address] [place] [address] Consulting Physician Neurology 01/23/22
--- OUTSIDE RECORDS SUMMARY | 2024-08-31 10:38 | XMS_ITS | Data Portability ---
Author Organization [place] - [facility], Main Office Address [address] [place] [address] Care Team Providers Care Surfboard Maker Name Role Phone SUZAN BALDERAS Primary Care Provider SUZAN BALDERAS Referring Provider [phone] Assessment Encounter Date Assessment Date Assessment LastModified by Organization Details LastModified Time 09/18/2022 09/18/2022 Patient returns knee pain bilaterally. She has vifp-wc-hhdl arthritis both knees right is much worse than the left. We talked about surgery but she is because of her advanced age we elected to consider it. She gets along fairly well with cortisone will just does not last too long. I have injected both knees with 20 mg Kenalog 4 cc 1% lidocaine for her per her request. For prescription drug management will try Celebrex for pain and inflammation. If she has any changes or problems she will call us see her back in a month for follow-up discussed. [email or web address] Not available 09/18/2022 14:02:43 12/19/2022 12/19/2022 the patient has severe primary osteoarthritis both knees right worse than left. At her request under sterile conditions I injected the patient's bilateral knee joints in the office with 4 cc 0.5% ropivacaine and 20 mg of Kenalog each. Patient tolerated the procedure well. I will see her back as needed we can do this again in 3 months if necessary she voiced understanding agrees above plan she will call for any further problems difficulties or questions. Not available 12/19/2022 14:26:38 03/10/2023 03/10/2023 The patient has severe tricompartmental osteoarthritis both knees as described. At her request under sterile conditions I injected both knee joints in the office today with 4 cc of 0.5% bupivacaine and 20 mg of Kenalog each. Patient tolerated the procedure well. I will see her back as needed we can do this again in 3 months if necessary at 87 years of age she is not interested in total knee arthroplasty she voiced understanding agrees above plan she will call for any further problems difficulties or questions. Not available 03/10/2023 14:12:13 05/28/2023 05/28/2023 By previous x-ra y exam the patient is noted have severe primary osteoarthritis both knee joints. Under sterile conditions I injected both knee joints in the office today with 4 cc of 0.5% Marcaine and 20 mg of Kenalog each. Patient tolerated the procedure well. Reviewed her previous x-rays in detail today at 87 years of age with other medical issues she is not interested in total knee arthroplasty. She will get by with conservative measures will see her back in 3 months if necessary for repeat cortisone. She voiced understanding agrees with above plan. Not available 05/28/2023 15:22:13 08/13/2023 08/13/2023 The patient has severe primary osteoarthritis both knee joints she also has trochanteric bursitis of the right hip she does report some groin pain with ambulation her bipolar hip prosthesis looks good on x-ray she may have some acetabular degenerative wear that is causing some groin pain. We talked about treatment options today in detail she wanted both knee joints injected today and her right hip trochanteric bursa therefore under sterile conditions I injected bilateral knee joints and the right hip trochanteric bursa in the office with 4 cc 0.5% bupivacaine and 20 mg of Kenalog each. The patient tolerated procedures well. She was given a copy of her x-rays today of her hip to take to see Dr. Whyte in September about her hip. If she gets worsening pain she will call she voiced understanding her daughter did too they will call for any further problems difficulties or questions. Not available 08/13/2023 15:18:15 Plan of Treatment Reminders Order Date Submit Date Provider Last Modified By Organization Details Last Modified Time Details Appointments None recorded. Lab None recorded. Referral None recorded. Procedures injection/a spiration joint/bursa (PROC) 2023 024 [email or web address] In-Office Order, Internal Use Only DO Not Attach Compendium DO Not Attach Compendium, Do Not Delete/merge, [id number] 14:47:13 injection/a spiration joint/bursa (PROC) 2023 024 [email or web address] In-Office Order, Internal Use Only DO Not Attach Compendium DO Not Attach Compendium, Do Not Delete/merge, [id number] 14:26:13 injection/a spiration joint/bursa (PROC) 2023 024 [email or web address] In-Office Order, Internal Use Only DO Not Attach Compendium DO Not Attach Compendium, Do Not Delete/merge, [id number] 14:53:38 injection/a spiration joint/bursa (PROC) 2022 023 [email or web address] In-Office Order, Internal Use Only DO Not Attach Compendium DO Not Attach Compendium, Do Not Delete/merge, [id number] 3 13:49:07 injection/a spiration joint/bursa (PROC) - in office procedure, administere d by provider 2022 023 In-Office Order, Internal Use Only DO Not Attach Compendium DO Not Attach Compendium, Do Not Delete/merge, [id number] 13:55:14 injection/a spiration joint/bursa (PROC) - in office procedure, administere d by provider 2022 023 [email or web address] In-Office Order, Internal Use Only DO Not Attach Compendium DO Not Attach Compendium, Do Not Delete/merge, [id number] 13:45:52 Surgeries None recorded. Imaging XR, hip + pelvis, unilateral 2023 024 [email or web address] [facility] [place], [address], [place], [id number], 4 16:08:19 XR, knee 2022 023 [email or web address] [facility] [place], [address], [place], [address], 3 16:37:29 Medication Orders bupivacaine HCl 0.5 % (5 mg/mL) injection solution 2023 024 [email or web address] #[facility]88, [address], [place], [place], [id number], 4 16:08:19 Kenalog 10 mg/mL suspension for injection [address] [facility]59037, [address], [place], [place], [id number], 4 16:08:19 bupivacaine HCl 0.5 % (5 mg/mL) injection solution [address] [facility]67994, [address] [place], [place], [id number], 4 16:08:19 Kenalog 10 mg/mL suspension for injection [address] [facility]81826, [address] [place], [place], [id number], 4 16:08:19 Kenalog 10 mg/mL suspension for injection [address] [facility]60345, [address] [place], [place], [id number], 4 16:28:29 Marcaine 0.5 % (5 mg/mL) injection solution 2023 024 [email or web address] #66830, [address] [place], [place], [id number], 4 16:28:29 bupivacaine HCl 0.5 % (5 mg/mL) injection solution 2022 [email or web address] [facility], [address], [place], [place], [id number], 4 14:49:51 Kenalog 10 mg/mL suspension for injection 2022 023 [address] [facility], [address], [place], [place], [id number], 4 14:50:19 Kenalog 10 mg/mL suspension for injection 2022 023 [address] [facility], [address], [place], [place], [id number], 4 14:50:19 ropivacaine (PF) 5 mg/mL (0.5 %) injection solution 2022 023 [email or web address] [facility], [address], [place], [place], [id number], 3 16:37:29 Kenalog 10 mg/mL suspension for injection 2022 023 [address], [address], [place], [place], [id number], 4 14:50:19 ropivacaine (PF) 5 mg/mL (0.5 %) injection solution 2022 023 [email or web address] [facility] #90571, [address], [place], [place], [id number], 3 14:01:09 celecoxib 200 mg capsule 2022 023 [address] [facility], [address], [place], [place], [id number], 4 14:50:01 Patient TargetsNo targets recorded. Patient InstructionsNo instructions recorded. Reason for Referral None Reported. Results Created Date Observation Date Name Description Value Unit Range Abnormal Flag Note LastModifiedBy Organization Detail LastModifiedTime 12/20/19 23 XR, knee No observ ation record ed. [email or web address] [facility] [place] [address], [place], [id number], 12/19/2022 14:27:49 08/13/19 24 XR, hip + pelvi s, unila teral No observ ation record ed. [email or web address] [facility] [place] [address], [place], [id number], 08/13/2023 15:18:55 Result Notes None recorded. Problems Name Problem SNOMED Code Status Onset Date Resolution Date Notes Provider Name and Address Organization Details Recorded Time Bilateral osteoarthr itis of knees 5598840627128 07 Active 2021 Not Available [facility] 3 13:30:50 Osteoarthr itis 500248972 Active Not Available [facility] 3 13:30:50 Pain of right knee joint 3036457042566 00 Active 2021 Not Available [facility] 3 13:30:50 Pain of left knee joint 5837667894317 07 Active 2021 Not Available [facility] 3 13:30:50 Pain of right hip joint 8283387594916 02 Active 2023 TERRENCE Olivia, [facility] 4 14:45:06 Trochanter ic bursitis of right hip 6466260584513 00 Active 2023 TERRENCE Olivia, [facility] 4 14:45:29 Problem Notes None recorded. Procedures Surgical History Date Name Laterality Status Provider Name and Address Organization Details Recorded Time 3 Ortho - Cortisone Injection completed Darren Wells MD [address] [place] [address], [facility] [address], [place], [address], [employer] 09/18/2022 14:01:55 Colon Surgery completed Not Available [facility] 05/21/2022 13:30:03 Imaging Results None recorded. Procedure Notes None recorded. Medical Equipment None Reported. Allergies No known drug allergies Medications Name Sig Start Date Stop Date Status Note LastModified by Organization Details LastModified Time celecoxib 200 mg capsule TAKE 1 CAPSULE BY MOUTH EVERY DAY 05/27 completed Not Available Not Available Not Available amoxicillin 500 mg capsule 01/18 completed Not Available Not Available Not Available gabapentin 600 mg tablet TK 03/24 T PO TID 02/26 completed Not Available Not Available Not Available donepezil 5 mg tablet TAKE 1 TABLET BY MOUTH EVERY NIGHT 05/27 completed Not Available Not Available Not Available erythromyci n 500 mg tablet active Not Available Not Available Not Available oxybutynin chloride ER 10 mg tablet,exte nded release 24 hr TAKE 1 TABLET BY MOUTH DAILY active Not Available Not Available No t Available hydrocodone 5 mg-acetamin ophen 325 mg tablet active Not Available Not Available No t Available donepezil 10 mg tablet TAKE 1 TABLET BY MOUTH EVERY NIGHT active Not Available Not Available No t Available meloxicam 15 mg tablet TAKE 1 TABLET BY MOUTH EVERY DAY 03/04 completed Not Available Not Available Not Available lisinopril 20 mg tablet TAKE 1 TABLET BY MOUTH DAILY active Not Available Not Available No t Available bupivacaine HCl 0.5 % (5 mg/mL) injection solution Take 20 mg by injection route. 2023 active Not Available Not Available Not Avai lable prochlorper azine maleate 10 mg tablet active Not Available Not Available No t Available ciprofloxac in 500 mg tablet active Not Available Not Available Not Available omeprazole 40 mg capsule,del ayed release TAKE 1 CAPSULE BY MOUTH DAILY 05/27 completed Not Available Not Available Not Available tramadol 50 mg tablet TAKE 1 TABLET BY MOUTH EVERY 8 HOURS NEEDED FOR PAIN 03/27 completed Not Available Not Available Not Available lidocaine-p rilocaine 2.5 %-2.5 % topical cream APPLY TO PORT SITE 30 MINUTES PRIOR TO ACCESS active Not Available Not Available No t Available Kenalog 10 mg/mL suspension for injection Take 20 mg by injection route. 2023 active [facility]: [phone] Not Available Not Available Not Available cephalexin 500 mg capsule TAKE 1 TABLET BY MOUTH THREE TIMES DAILY FOR 5 DAYS NEEDED FOR UTI 05/27 completed Not Available Not Available Not Available pantoprazol e 40 mg tablet,adarsh yed release active Not Available Not Available Not Available tobramycin 0.3 % eye drops INSTILL 2 DROPS IN EACH EYE EVERY 4 HOURS 05/27 completed Not Available Not Available Not Available gabapentin 300 mg capsule active Not Available Not Available Not Available quinapril 20 mg tablet TAKE 1 TABLET BY MOUTH DAILY 05/27 completed Not Available Not Available Not Available ibuprofen 600 mg tablet active Not Available Not Available Not Available cefuroxime axetil 500 mg tablet 01/18 completed Not Available Not Available Not Available polyethylen e glycol 3350 17 gram/dose oral powder MIX 17GM WITH A LIQUID AND DRINK PO DAILY active Not Available Not Available No t Available methylpredn isolone 4 mg tablets in a dose pack FOLLOW PACKAGE DIRECTION S active Not Available Not Available No t Available neomycin 500 mg tablet active Not Available Not Available Not Available fluticasone propionate 50 mcg/actuati on nasal spray,suspe nsion 01/18 completed Not Available Not Available Not Available amoxicillin 875 mg-potassiu m clavulanate 125 mg tablet TAKE 1 TABLET BY MOUTH TWICE DAILY active Not Available Not Available No t Available amoxicillin -potassium clavulanate 1,000 mg-62.5 mg tablet,ext. rel 12hr TAKE 1 TABLET BY MOUTH EVERY 12 HOURS 05/27 completed Not Available Not Available Not Available nitrofurant oin monohydrate /macrocryst als 100 mg capsule TAKE 1 CAPSULE BY MOUTH EVERY 12 HOURS FOR 7 DAYS 03/27 completed Not Available Not Available Not Available Myranda-D 24 Hour 180 mg-240 mg tablet,exte nded release TK 1 T PO QD PRN 01/18 completed Not Available Not Available Not Available lidocaine (PF) 10 mg/mL (1 %) injection solution In office injection administe red by the provider 05/24 completed [facility]: [phone] Not Available Not Available Not Available lidocaine (PF) 5 mg/mL (0.5 %) injection solution Take 20 mg by injection route. 03/27 completed Not Available Not Available Not Available Synvisc-One 48 mg/6 mL intra-artic ular syringe Take 6 mL by intraarti cular route. 05/24 completed Not Available Not Available Not Available GaviLyte-G 236 gram-22.74 gram-6.74 gram-5.86 gram oral solution active Not Available Not Available Not Available Suprep Bowel Prep Kit 17.5 gram-3.13 gram-1.6 gram oral solution DIRECTED BY PHYSICIAN 03/27 completed Not Available Not Available Not Available ropivacaine (PF) 5 mg/mL (0.5 %) injection solution in office 2022 active [facility] [phone] Not Available Not Available Not Available Myrbetriq 25 mg tablet,exte nded release TAKE 1 TABLET BY MOUTH DAILY active Not Available Not Available No t Available Linzess 145 mcg capsule TK 1 C PO D 03/27 completed Not Available Not Available Not Available Stimulant Laxative Plus 8.6 mg-50 mg tablet TK 1 T PO BID active Not Available Not Available No t Available Paxlovid 150 mg-100 mg tablets in a dose pack (Moderate Renal Dose) FOLLOW PACKAGE DIRECTION S active Not Available Not Available No t Available Vitals Date Recorded Body height Body mass index (BMI) Body weight Provider Name and Address Organization Details Last Updated DateTime 05/28/2023 165.1 cm 26.6 kg/m2 25238.78 g Marta Mimsmons [facility] 05/28/2023 14:49:28 Date Recorded Body height Body mass index (BMI) Body weight Provider Name and Address Organization Details Last Updated DateTime 08/13/2023 165.1 cm 24.6 kg/m2 72489.67 g 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 [facility] 08/13/2023 14:24:28 Date Recorded Body height Body mass index (BMI) Body weight Provider Name and Address Organization Details Last Updated DateTime 09/18/2022 165.1 cm 23.3 kg/m2 45576.93 g 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 [facility] 09/18/2022 13:44:14 Date Recorded Body height Body mass index (BMI) Body weight Provider Name and Address Organization Details Last Updated DateTime 12/19/2022 165.1 cm 25 kg/m2 46430.86 g RANDALL Bunn [facility] 12/19/2022 13:53:36 Date Recorded Body height Provider Name an d Address Organization Details Last Updated DateTime 03/10/2023 165.1 cm Marta Rouse [facility] 03/10/2023 13:47:19 Social History None recorded. Functional Status Question Answer Note LastModified by Organizat ion Details LastModified Time What is your level of alcohol consumption? None [id number] Information not available 05/21/2022 Mental Status None recorded. Family History Relationship Description Onset Age of this Age Resolved Age Notes LastModified by Organization Details LastModified Time Unspecified Relation Family history of malignant neoplasm [id number] Not available 05/21/2022 13:30:04 Medical History Condition Response URINARY/BLADDER/KIDNEY PROBLEMS Y ARTHRITIS Y CANCER: SPECIFY Y Gynecological HistoryNo gynecological history recorded. Obstetrics History GPAL:G 0 P 0 0 0 0 Past Encounters Encounter ID Performer Location Encounter Start Date Encounter Closed Date Diagnosis/Indication Diagnosis SNOMED-CT Code Diagnosis ICD10 Code Diagnosis Note [id number] Darren Wells MD [facility] [place] [address] [place] [address] 06/14/2020 00:00:00 06/14/2020 11:30:09 [id number] EULOGIO Disla [facility] [place] [address] [place] [address] 09/12/2020 00:00:00 09/12/2020 12:01:47 [id number] EULOGIO Disla [facility] [place] [address] [place] [address] 11/19/2020 00:00:00 11/19/2020 09:57:56 [id number] EULOGIO Disla [facility] [place] [address] [place] [address] 12/11/2020 00:00:00 12/11/2020 15:16:20 [id number] MD BETH [facility] [place] [address] [place] [address] 03/04/2021 00:00:00 03/04/2021 12:36:20 [id number] Darren Wells MD [facility] [place] [address] [place] [address] 05/24/2021 00:00:00 05/24/2021 14:39:32 [id number] Darren Wells MD [facility] [place] [address] [place] [address] 07/29/2021 00:00:00 07/29/2021 12:10:27 [id number] Darren Wells MD [facility] [place] [address] [place] [address] 10/14/2021 00:00:00 10/14/2021 12:08:02 [id number] Darren Wells MD [facility] [place] [address] [place] [address] 01/09/2022 00:00:00 01/09/2022 14:17:14 [id number] Darren Wells MD [facility] [place] [address] [place] [address] 03/27/2022 00:00:00 03/27/2022 14:42:16 [id number] Darren Wells MD [facility] [place] [address] [place] [address] 06/20/2022 14:02:53 06/20/2022 15:00:49 Pain of right knee joint 7547111090 51672 M25.561 Pain of le ft knee joint 4385013146 91013 M25.562 Bilateral osteoarthritis of knees 3663442094 53244 M17.0 [id number] Darren Wells MD [facility] [place] [address] [place] [address] 09/18/2022 13:38:44 09/18/2022 14:01:53 Pain of right knee joint 9366475964 33708 M25.561 Pain of le ft knee joint 1161996866 73102 M25.562 Bilateral osteoarthritis of knees 9222437232 89726 M17.0 [id number] Gregg Whyte MD [facility] [place] [address] [place] [address] 12/19/2022 13:46:35 12/19/2022 14:37:03 Bilateral osteoarthritis of knees 2567757806 08981 M17.0 Pain of le ft knee joint 4572343367 28962 M25.562 Pain of ri ght knee joint 8147583840 84364 M25.061 [id number] EULOGIO Disla [facility] [place] [address] [place] [address] 03/10/2023 13:36:39 03/10/2023 14:09:43 Bilateral osteoarthritis of knees 2584942332 71535 M17.0 Pain of ri ght knee joint 4486832360 21502 M25.561 Pain of le ft knee joint 1387495570 87905 M25.562 Osteoarthritis 613765148 M17.11 [id number] Mark Anthony Sylvester MD [facility] [place] [address] [place] [address] 05/28/2023 14:10:08 05/28/2023 15:18:38 Bilateral osteoarthritis of knees 8669472523 77460 M17.0 Pain of ri ght knee joint 7759748343 83702 M25.561 Pain of le ft knee joint 5661988243 18382 M25.757 [id number] Mark Anthony Sylvester MD [facility] [place] 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 8402666499 046407 Z96.641 Health Concerns Section Related Observation LastModified by Organization Detai ls LastModified Time None Recorded Concern Status LastModified by Organization Details LastModified Time None Recorded Advance Directives Directive None Recorded Payers Encounter Date Sequence Insurance Name Policy Number Policy Schreiber Covered Member ID Schreiber Member ID Guarantor Name 09/18/2022 1 [facility] (MEDICARE REPLACEMENT/A DVANTAGE - HMO) [id number] Shira P Meikamp [id number] Shira Meikamp 12/19/2022 1 [facility] (MEDICARE REPLACEMENT/A DVANTAGE - HMO) [id number] Shira P Meikamp [id number] Shira Meikamp 03/10/2023 1 [facility] (MEDICARE REPLACEMENT/A DVANTAGE - HMO) [id number] Shira P Meikamp [id number] Shira Meikamp 05/28/2023 1 [facility] (MEDICARE REPLACEMENT/A DVANTAGE - HMO) [id number] Shira P Meikamp [id number] Shira Meikamp 08/13/2023 1 [facility] (MEDICARE REPLACEMENT/A DVANTAGE - HMO) [id number] Shira P Meikamp [id number] Shira Meikamp Notes Date Note Type Note Provider Name and Address Organization Details Recorded Time 09/18/2022 text/html Patient returns with bilateral knee pain she has severe primary osteoarthritis right worse than left with significant valgus deformities right worse than left. She is not interested in total knee arthroplasty she is 87 years old gets around okay with a walker states she would like shot of cortisone again today it has been 3 months since her last injections they do help for a month or 2. She denies any new symptoms no new trauma or injury no erythema heat effusion or signs of infection in either knee. Darren Wells MD [address] [place] [address], [place], [address], [facility] [employer] 09/18/2022 14:03:08 12/19/2022 text/html Patient returns requesting bilateral knee injections. She has severe qgnt-ik-aocc arthritis right is worse than the left she has valgus deformities mkzn-fx-[id number] changes some erosion of the lateral tibial plateau on the right knee. She has tricompartmental severe osteoarthritis she comes in every now and then for cortisone injections. At 87 years of age she is not interested in total knee arthroplasty she wants to get by with conservative measures does pretty well with the shots. Denies any swelling or effusion no erythema heat or other signs of infection. EULOGIO Disla [address], [place], [address], [employer] 12/19/2022 14:28:15 03/10/2023 text/html Patient returns complaining of bilateral knee pain. She states she gets excellent relief from cortisone injections despite her severe osteoarthritis both knees tricompartmental in nature. The right looks a little worse than the left. She has hypertrophic spurring and some erosion of the lateral tibial plateau in the right knee similar findings on the left but not as severe without erosion. Valgus deformities noted bilaterally right worse than left with significant changes in the patellofemoral articulations as well. Today she denies any new problems her pain is starting to return it has been 3 months since her last cortisone injections she would like to repeat these today. EULOGIO Disla [address], [place], [address], [employer] 03/10/2023 14:12:31 05/28/2023 text/html Patient returns complaining of bilateral knee pain she has known severe primary osteoarthritis both knees with tricompartmental changes. Right knee is little worse than the left, there are hypertrophic spurring changes noted and some erosion of the lateral tibial plateau in the right knee similar findings but not as severe on the left. Valgus deformities right worse than left are noted and significant changes in the patellofemoral articulations also. She denies any new symptoms no new trauma or injury it has been 3 months since her last injection she would like to repeat these today they really help her get around well.A new past medical history sheet was reviewed and signed on the intake sheet today's date drug allergies current medications family social history previous surgical history 10 point review of systems was reviewed and discussed in detail today with the patient. EULOGIO Disla [address], [address], [place], [address], [employer] 05/28/2023 15:22:25 08/13/2023 text/html patient returns with bilateral knee pain and new right hip pain. She is scheduled to see Dr. Whyte in a couple of months about her hip but her daughter was asking if maybe we can get an x-ray today to make sure nothing serious is going on. She had a bipolar hip prosthesis done September of [address] Self. She states she has been having quite a bit of pain over the lateral trochanteric region very tender there also some groin pain was associated with it. Denies any trauma or injury no effusion or swelling no loss of motion or weakness. She does use a walker for support she has severe primary osteoarthritis of both knee joints which limits her ability to get around 2. I have told her we can get x-rays of her hip today she is very tender over the trochanteric region may have some bursitis over the trochanteric area. She also would like both knees injected today previous x-rays have shown severe primary osteoarthritis both knees her last injections were 3 months ago she would like to repeat those today as well. EULOGIO Disla [address] [facility], [facility] [address], [place], [address], [place] [employer] 08/13/2023 15:20:03 OBGyn Episode No OBEpisode recorded.
[2024-08-31 12:36] LABS: Alanine Aminotransferase 20 U/L (6-35); Alkaline Phosphatase 76 U/L (38-126); Anion Gap 6 mmol/L (4-12); Aspartate Amino Transferase 42 U/L (14-36); Bilirubin,Total 0.3 mg/dL (0.2-1.3); Blood Urea Nitrogen 31 mg/dL (7-17); Calcium 9.7 mg/dL (8.4-10.2); Carbon Dioxide 28 mmol/L (22-30); Chloride 106 mmol/L (98-107); Cholesterol 183 mg/dL (0-200); Estimated Glomerular Filt Rate 39; Glucose 100 mg/dL (65-110); HDL Direct 78 mg/dL; Potassium 4.5 mmol/L (3.4-5.0); Sodium 140 mmol/L (137-145); Total Protein 7.4 g/dL (6.3-8.2); Triglycerides 146 mg/dL (<150)
[2024-08-31 12:46] LABS: LDL Cholesterol Direct 51 mg/dL
[2024-08-31 13:27] LABS: Vitamin B12 > 1000.0 pg/mL (239-931)
[2024-08-31 13:41] LABS: Vitamin D 25 Hydroxy 70.7 ng/mL
[2024-08-31 15:49] LABS: Hemoglobin A1C 5.8 % (<5.7)
== END 2024-08-31 09:39 | disposition home or self-care (01) ==
LOC: ANHGOSHLAB 09:39
PROVIDERS: PCP Family Medicine; Visit Provider Family Medicine
DX: E78.5 Hyperlipidemia, unspecified (principal); I10 Essential (primary) hypertension; E53.8 Deficiency of other specified B group vitamins; E11.9 Type 2 diabetes mellitus without complications; F03.90 Unspecified dementia, unspecified severity, without behavioral disturbance, psychotic disturbance, mood disturbance, and anxiety; E55.9 Vitamin D deficiency, unspecified
CPT/HCPCS: 36415; 80053; 80061; 82306; 82607; 83036; 84443

== ENCOUNTER 2024-09-08 13:52 | Outpatient (CLI) | payer MEDICARE, SELFPAY ==
--- NOTE | ~2024-09-08 | PE_ITS ---
EXAMINATION: PET skull to mid thigh DATE: 09/08/2024 15:52 INDICATION: Colon cancer TECHNIQUE: Blood glucose level was 91 mg/dL. 10.516 mCi of 18-fluorodeoxyglucose (18-FDG) was adminis tered i.v. Low dose computed tomography (CT) images were acquired from the base of the brain to the p roximal thighs for attenuation correction and anatomic localization. Positron emission tomography (PE T) images were acquired in the same distribution beginning 52 minutes after injection. Images includi ng fused PET/CT images were reconstructed in axial, coronal, and sagittal planes. Automated exposure control technique was employed. The dose-length product was 645.41mGy-cm. COMPARISON: 10/25/2019 FINDINGS: Head/neck: There is symmetric increased activity in the oral cavity, palatine tonsils, laryngeal muscles and ocu lar muscles without CT correlate, likely physiologic. No pathologically enlarged cervical lymphadenop athy or suspicious foci of increased FDG uptake in the visualized head or neck. Chest: Mild dependent atelectasis in the bilateral lower lobes. No suspicious pulmonary nodules, pneumonia, pulmonary edema or pleural effusion. Heart size is normal. Atherosclerotic coronary artery calcific l esion. Aortic valve and mitral annular calcification. No pericardial effusion. Thoracic aorta is norm al in caliber. There is a single 16 x 11 mm mildly FDG avid right paratracheal lymph node with obi l SUV of 6.0. No other pathologically enlarged or FDG avid thoracic lymphadenopathy. Right internal j ugular central venous port catheter with distal tip at the caudal superior vena cava. Abdomen/pelvis/proximal thighs: Physiologic renal accumulation and excretion of FDG activity in the kidneys, bladder and along portio ns of ureters. Normal degree and heterogenous pattern of increased uptake throughout the liver withou t radiologic correlate or dominant FDG avid lesion. Hepatic and splenic calcifications consistent wit h old granulomatous disease. The gallbladder, pancreas and bilateral adrenal glands are normal. Posto perative change of prior right hemicolectomy with ileocolic anastomosis in the right lower quadrant. There is extensive diverticulosis along the descending and sigmoid colon without adjacent inflammator y stranding to suggest diverticulitis. Mild uptake scattered throughout the bowels without radiologic correlate, also likely physiologic. Pelvic floor relaxation. No other abnormal foci of increased FDG uptake or pathologically enlarged lymphadenopathy in the abdomen, pelvis or proximal thighs. Musculoskeletal: Right total hip arthroplasty. Severe spondylosis. No suspicious lytic, blastic or abnormally FDG avid bone lesions. IMPRESSION: 1. Single mildly enlarged and mildly FDG avid right paratracheal lymph node. Given the relatively mil d increased size and degree of FDG uptake and absence of additional concerning lesions would favor re active lymph node over metastatic disease or even less likely lymphoma. Reviewed, dictated and finalized at location A. IMPRESSION: 1. Single mildly enlarged and mildly FDG avid right paratracheal lymph node. Gi wilfredo the relatively mild increased size and degree of FDG uptake and absence of additional concerning lesions would favor reactive lymph node over metastatic d isease or even less likely lymphoma.
--- OUTSIDE RECORDS SUMMARY | 2024-09-08 14:10 | XMS_ITS | Data Portability ---
Author Organization [place] [facility] [employer], Main Office Address [address] [place] [address] Care Team Providers Care Cigarette Making Machine Catcher Name Role Phone SUZAN BALDERAS Primary Care Provider [phone] SUZAN BALDERAS Referring Provider Assessment Encounter Date Assessment Date Assessment LastModified by Organization Details LastModified Time 09/18/2022 09/18/2022 Patient returns knee pain bilaterally. She has gawa-id-pqde arthritis both knees right is much worse [...] back in a month for follow-up discussed. [email or web address] Not available 09/18/2022 14:02:43 12/19/2022 12/19/2022 the [...] DO Not Attach Compendium, Do Not Delete/merge, [id number] 4 14:47:13 injection/a spiration joint/bursa (PROC) 2023 024 [email or web address] In-Office Order, Internal Use Only DO Not Attach Compendium DO Not Attach Compendium, Do Not Delete/merge, 4 14:26:13 injection/a spiration joint/bursa (PROC) 2023 024 [email or web address] In-Office Order, Internal Use Only DO Not Attach Compendium DO Not Attach Compendium, Do Not Delete/merge, [id number] 4 14:53:38 injection/a spiration joint/bursa (PROC) 2022 023 [email or web address] In-Office Order, Internal Use Only DO Not Attach Compendium DO Not Attach Compendium, Do Not Delete/merge, [facility] 3 13:49:07 injection/a spiration joint/bursa (PROC) - in office procedure, administere d by provider 2022 023 [email or web address] In-Office Order, Internal Use Only DO Not Attach Compendium DO Not Attach Compendium, Do Not Delete/merge, [facility] 3 13:55:14 injection/a spiration joint/bursa (PROC) - in office procedure, administere d by provider 2022 023 [email or web address] In-Office Order, Internal Use Only DO Not Attach Compendium DO Not Attach Compendium, Do Not Delete/merge, [facility] 3 13:45:52 Surgeries None recorded. Imaging XR, hip + pelvis, unilateral 2023 024 [email or web address] [facility] [place], [address], [place], [address], 4 16:08:19 XR, knee 2022 023 [email or web address] [facility] [place], [address], [place], [address], 3 16:37:29 Medication Orders bupivacaine HCl 0.5 % (5 mg/mL) injection solution 2023 024 [email or web address]12463, [address], [place], [place], [id number], 4 16:08:19 Kenalog 10 mg/mL suspension for injection [address] [facility]93579, [address], [place], [place], [id number], 4 16:08:19 bupivacaine HCl 0.5 % (5 mg/mL) injection solution [address] [facility]47780, [address] [place], [place], [id number], 4 16:08:19 Kenalog 10 mg/mL suspension for injection [address] [facility]36164, [address] [place], [place], [id number], 4 16:08:19 Kenalog 10 mg/mL suspension for injection [address] [facility] #17752, [address] [place], [place], [id number], 4 16:28:29 Marcaine 0.5 % (5 mg/mL) injection solution 2023 024 [email or web address] #62239, [address] [place], [place], [id number], 4 16:28:29 bupivacaine HCl 0.5 % (5 mg/mL) injection solution 2022 [email or web address], [address], [place], [place], [id number], 4 14:49:51 Kenalog 10 mg/mL suspension for injection 2022 023 [address], [address], [place], [place], [id number], 4 14:50:19 Kenalog 10 mg/mL suspension for injection 2022 023 [address], [address], [place], [place], [id number], 4 14:50:19 ropivacaine (PF) 5 mg/mL (0.5 %) injection solution 2022 023 [email or web address], [address], [place], [place], [id number], 3 16:37:29 Kenalog 10 mg/mL suspension for injection 2022 023 [address], [address], [place], [place], [id number], 4 14:50:19 ropivacaine (PF) 5 mg/mL (0.5 %) injection solution 2022 023 [email or web address] [facility] #19406, [address], [place], [place], [id number], 3 14:01:09 celecoxib 200 mg capsule 2022 023 [address], [address], [place], [place], [id number], 4 14:50:01 Patient TargetsNo targets recorded. Patient InstructionsNo instructions recorded. Reason for Referral None Reported. Results Created Date Observation Date Name Description Value Unit Range Abnormal Flag Note LastModifiedBy Organization Detail LastModifiedTime 12/20/19 23 XR, knee No observ ation record ed. [email or web address] [facility] [place] [address], [place], [address], 12/19/2022 14:27:49 08/13/19 24 XR, hip + pelvi s, unila teral No observ ation record ed. [email or web address] [facility] [place] [address], [place], [address], 08/13/2023 15:18:55 Result Notes None recorded. Problems Name Problem SNOMED Code Status Onset Date Resolution Date Notes Provider Name and Address Organization Details Recorded Time Bilateral osteoarthr itis of knees 7215409856443 07 Active 2021 Not Available [facility] 3 13:30:50 Osteoarthr itis 165776092 Active Not Available [facility] 3 13:30:50 Pain of right knee joint 4065603610573 00 Active 2021 Not Available [facility] 3 13:30:50 Pain of left knee joint 6088847981087 07 Active 2021 Not Available [facility] 3 13:30:50 Pain of right hip joint 5313168449831 02 Active 2023 TERRENCE Olivia, [employer] 4 14:45:06 Trochanter ic bursitis of right hip 5740493580055 00 Active 2023 TERRENCE Olivia, [employer] 4 14:45:29 Problem Notes None recorded. Procedures Surgical History Date Name Laterality Status Provider Name and Address Organization Details Recorded Time 3 Ortho - Cortisone Injection completed Darren Wells MD [address] [place] [address], [facility] [address], [place], [address], [employer] 09/18/2022 14:01:55 Colon Surgery completed Not Available [...] 20 mg by injection route. 2023 active [facility]: [phone]- [phone] Not Available [...] administe red by the provider 05/24 completed [facility]: [phone]- [phone] Not Available [...] %) injection solution in office 2022 active [facility] [phone] Not Available Not Available Not [...] Updated DateTime 05/28/2023 165.1 cm 26.6 kg/m2 43718.78 g Marta Mimsmons [facility] [employer] 05/28/2023 14:49:28 Date Recorded Body height Body mass index (BMI) Body weight Provider Name and Address Organization Details Last Updated DateTime 08/13/2023 165.1 cm 24.6 kg/m2 75014.67 g 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 [facility] [employer] 08/13/2023 14:24:28 Date Recorded Body height Body mass index (BMI) Body weight Provider Name and Address Organization Details Last Updated DateTime 09/18/2022 165.1 cm 23.3 kg/m2 71126.93 g 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 [facility] [employer] 09/18/2022 13:44:14 Date Recorded Body height Body mass index (BMI) Body weight Provider Name and Address Organization Details Last Updated DateTime 12/19/2022 165.1 cm 25 kg/m2 40418.86 g RANDALL Bunn [facility] [employer] 12/19/2022 13:53:36 Date Recorded Body height Provider Name an d Address Organization Details Last Updated DateTime 03/10/2023 165.1 cm Marta Rouse [facility] 03/10/2023 13:47:19 Social History None recorded. Functional Status Question Answer Note LastModified by Organizat ion Details LastModified Time What is your level of alcohol consumption? None [id number] Information not available 05/21/2022 Mental Status None recorded. Family History Relationship Description Onset Age of this Age Resolved Age Notes LastModified by Organization Details LastModified Time Unspecified Relation Family history of malignant neoplasm [id number] Not available 05/21/2022 13:30:04 Medical History Condition Response URINARY/BLADDER/KIDNEY PROBLEMS Y ARTHRITIS Y CANCER: SPECIFY Y Gynecological HistoryNo gynecological history recorded. Obstetrics History GPAL:G 0 P 0 0 0 0 Past Encounters Encounter ID Performer Location Encounter Start Date Encounter Closed Date Diagnosis/Indication Diagnosis SNOMED-CT Code Diagnosis ICD10 Code Diagnosis Note [id number] Darren Wells MD [facility] [place] [address] [place] [address] 06/14/2020 00:00:00 06/14/2020 11:30:09 [id number] EULOGIO Disla [facility] [place] [address] [place] [address] 09/12/2020 00:00:00 09/12/2020 12:01:47 [id number] EULOGIO Disla [facility] [place] [address] [place] [address] 11/19/2020 00:00:00 11/19/2020 09:57:56 [id number] EULOGIO Disla [facility] [place] [address] [place] [address] 12/11/2020 00:00:00 12/11/2020 15:16:20 [id number] MD BETH [facility] [place] [address] [place] [address] 03/04/2021 00:00:00 03/04/2021 12:36:20 [id number] Darren Wells MD [facility] [place] [address] [place] [address] 05/24/2021 00:00:00 05/24/2021 14:39:32 [id number] Darren Wells MD [facility] [place] [address] [place] [address] 07/29/2021 00:00:00 07/29/2021 12:10:27 [id number] Darren Wells MD [facility] [place] [address] [place] [address] 10/14/2021 00:00:00 10/14/2021 12:08:02 [id number] Darren Wells MD [facility] [place] [address] [place] [address] 01/09/2022 00:00:00 01/09/2022 14:17:14 [id number] Darren Wells MD [facility] [place] [address] [place] [address] 03/27/2022 00:00:00 03/27/2022 14:42:16 [id number] Darren Wells MD [facility] [place] [address] [place] [address] 06/20/2022 14:02:53 06/20/2022 15:00:49 Pain of right knee joint 0467533563 37532 M25.561 Pain of le ft knee joint 8948536755 33392 M25.562 Bilateral osteoarthritis of knees 2118223581 21147 M17.0 [id number] Darren Wells MD [facility] [place] [address] [place] [address] 09/18/2022 13:38:44 09/18/2022 14:01:53 Pain of right knee joint 0836926229 52352 M25.561 Pain of le ft knee joint 5269046164 36658 M25.562 Bilateral osteoarthritis of knees 1575611899 46469 M17.0 [id number] Gregg Whyte MD [facility] [place] [address] [place] [address] 12/19/2022 13:46:35 12/19/2022 14:37:03 Bilateral osteoarthritis of knees 7867878752 67350 M17.0 Pain of le ft knee joint 5093977444 84167 M25.562 Pain of ri ght knee joint 3564949234 58471 M25.594 [id number] EULOGIO Disla [facility] [place] [address] [place] [address] 03/10/2023 13:36:39 03/10/2023 14:09:43 Bilateral osteoarthritis of knees 3096102491 67565 M17.0 Pain of ri ght knee joint 5423527770 80892 M25.561 Pain of le ft knee joint 3872186979 99261 M25.562 Osteoarthritis 141803679 M17.11 [id number] Mark Anthony Sylvester MD [facility] [place] [address] [place] [address] 05/28/2023 14:10:08 05/28/2023 15:18:38 Bilateral osteoarthritis of knees 2028682368 75390 M17.0 Pain of ri ght knee joint 0523835228 74364 M25.561 Pain of le ft knee joint 3351934623 27773 M25.158 [id number] Mark Anthony Sylvester MD [facility] [place] 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 Darren Wells MD [address], [place], [address], [employer] 09/18/2022 14:03:08 12/19/2022 text/html Patient returns requesting bilateral knee injections. She has severe ixxx-lr-kmkl arthritis right is worse than the left she has valgus deformities pbhf-go-uiqq changes some erosion of the lateral tibial [...] other signs of infection. EULOGIO Disla [address], [place], [address], [employer] 12/19/2022 14:28:15 03/10/2023 text/html Patient returns complaining [...] repeat these today. EULOGIO Disla [address], [place], [address], [employer] 03/10/2023 14:12:31 05/28/2023 text/html Patient returns complaining [...] with the patient. EULOGIO Disla [address], [address], [place], [address], [employer] 05/28/2023 15:22:25 08/13/2023 text/html patient returns with [...] those today as well. EULOGIO Disla [address] [address], [place], [address], [place] [facility] 08/13/2023 15:20:03 OBGyn Episode No OBEpisode recorded.
--- OUTSIDE RECORDS SUMMARY | 2024-09-08 14:10 | XMS_ITS | Referral Summary ---
Author Organization [facility] Medical Office Building B Address [address] [place] [address] Care Team Providers Care Sharepoint Consultant Name Role Phone Michael Higgins MD Primary Care Provider Allergies No known active allergies Medications meloxicam (MOBIC) 15 mg tablet Take 1 tablet by mouth daily. 8 Active traMADol (ULTRAM) 50 mg tablet Take 50 mg by mouth 2 (two) times a day. 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
--- OUTSIDE RECORDS SUMMARY | 2024-09-08 14:10 | XMS_ITS | Clinical Summary ---
Author Organization [facility] [employer] Address [address] [place] [address] Care Team Providers Care Make Up Editor Name Role Phone Michael Higgins MD Primary Care Provider Source Comments [facility],non-owned Affiliates and Associated Physician Practices is amultiple site organization consisting of ambulatory clinics and hospital sitesin [place], [place], [place] and [place]. This disclosure is being madepursuant to the Care Everywhere program and may not contain all information available regarding this patient. 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
--- OUTSIDE RECORDS SUMMARY | 2024-09-08 14:10 | XMS_ITS | Clinical Summary ---
Author Organization [facility] Address [address] [place] [address] Phone Care Team Providers Care Artifacts Conservator Name Role Phone Michael Higgins MD Primary Care Provider Davion Benitez MD Unavailable [phone] Allergies No known active allergies Medications ferrous [...] Type Department Care Team Description 07/25/2024 Refill [facility] - Neurology [facility] [address] [place] [address] Davion Benitez MD from Last [...] Comments Blood Pressure 120/74 04/12/2024 1:29 PM BAGMAN/WOMAN Pulse 62 2023 10:37 AM CDT Temperature 36.3 C (97.4 F) 04/12/2024 1:29 PM [facility]MAN[facility]WOMAN Respiratory Rate 17 04/12/2024 1:29 PM [facility] Oxygen Saturation 96% 2023 10: 37 AM CDT Inhaled Oxygen Concentration - - Weight 65.7 kg (144 lb 12.8 oz) 04/12/2024 1:29 PM BAGMAN/WOMAN Height 165.1 cm (5' 5) 04/12/2024 1:29 PM BAGMAN/WOMAN Body Mass Index 24.1 04/12/2024 1:29 PM BAGMAN/WOMAN Plan of Treatment Upcoming Encounters Date Type Department Care Team (Late st Contact Info) Description 10/10/2024 2:00 PM CDT Office Visit [facility] - [facility] [address] [place] [address] Davion Benitez MD [address] [place] [address] Health Maintenance Due Date Last Done Comments [...] topic Insurance MEDICARE C [employer] Care Teams Artifacts Conservator Relationship Specialty Start Date End Date Michael Higgins MD PCP - General Family Medicine 10/10/21 Davion Benitez MD [address] [place] [address] Consulting Physician Neurology 01/23/22
--- OUTSIDE RECORDS SUMMARY | 2024-09-08 14:10 | XMS_ITS | Clinical Summary ---
Author Organization [facility] Medical Office Building B Address [address] [place] [address] Care Team Providers Care Olericulture Teacher Name Role Phone Michael Higgins MD Primary Care Provider Allergies No known active allergies Medications meloxicam (MOBIC) 15 mg tablet Take 1 tablet by mouth daily. 8 Active traMADol (ULTRAM) 50 mg tablet Take 50 mg by mouth 2 (two) times a day. 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
--- OUTSIDE RECORDS SUMMARY | 2024-09-08 14:10 | XMS_ITS | Continuity of Care Document ---
Author Organization [facility] Address [address] [place] [address] [place] [address] Phone Care Team Providers Care Hand Cigar Making Supervisor Name Role Phone Kayleen Galvez Unavailable Unavailable Procedures Procedure Date Office/outpatient Visit, Est Office/outpatient Visit, Est Office/outpatient Visit, Est Office/outpatient Visit, Est Eye Exam Established Pt Office/outpatient Visit, New Advance Directives Directive Yes / No Effective Date File Name No Information Encounters Encounter Description Practice Location Reason(s) For Visit Diagnoses Date Provider Providers Copied on Encounter Office/outpat ient Visit, [facility], [address] [place] [address] [address], [place], [place], [id number], tel:[phone] [facility] No Information Mar-1 1-200 8 Leon[address] , [address], [place], [place], [facility], . tel:[phone] Office/outpat ient Visit, [facility], [address] [place] [address] [address], [place], [place], [id number], tel:[phone] [facility] No Information Mar-0 4-200 8 [address], [place], [place], [facility], [place]. tel:[phone] Referring Provider: Dewayne Burger, [address], [place], [place], [facility]. tel:[phone] Office/outpat ient Visit, [facility], [address], [place], [place], [id number], tel:[phone] [facility] No Information Apr- 8-200 8 Cervantes OD Dewayne. [address] , [address], [place], [place], [facility], . tel:[phone] Office/outpat ient Visit, [facility], [address] [place] [address] [address], [place], [place], [id number], [place] tel:[phone] [facility] No Information 2-200 8 Cervantes OD Dewayne. [address] , [address], [place], [place], [facility], . tel:[phone] [facility], [address] [place] [address] [address], [place], [place], [address], tel:[phone] [facility]3] No Information 9-200 8 Galvez Kayleen. [address] , [address], [place], [place], [facility], . tel:[phone] Office/outpat ient Visit, [facility], [address] [place] [address] [address], [place], [place], [id number], tel:[phone] [facility] No Information 5-200 8 Cervantes OD Dewayne. [address] , [address], [place], [place], [facility], . tel:[phone] Family History Family Member Type Diagnosis Age At Onset No Information Payers Payer name Insurance type Covered alliance party ID Authoriza tion(s) No Information Social [...]
--- OUTSIDE RECORDS SUMMARY | 2024-09-08 14:10 | XMS_ITS | Clinical Summary ---
Author Organization [facility] Address [facility] [place] [address] Care Team Providers Care Fur Operator Name Role Phone Darren Queen MD Primary Care Provider [phone] Social History Tobacco Use Types Packs/Day Years Used Date Smoking Tobacco: Never Assessed Comments Unknown Sex and Gender Information Value Date Recorded Sex Assigned at Not on file Legal Sex Female 7:23 PM CDT Gender Identity Not on file Sexual Orientation Not on file Plan of Treatment Health Maintenance Due Date Last Done Comments DTaP, Tdap and Td Vaccines ( 1 - Tdap) 1954 Pneumococcal Vaccine: 50+ Years (1 of 1 - PCV) 06/13/1987 Zoster Vaccines (2 of 3) 11/26/2007 10/01/2007 RSV Immunization or 60+ Years (1 - 1-dose 75+ series) 2012 COVID-19 Vaccine (3 - 2023-2 5 season) 2023 06/15/2020, 05/18/2020 Meningococcal B Vaccine Aged Out No l onger eligible based on patient's age to complete this topic Meningococcal Vaccine Aged Out No minda hudson eligible based on patient's age to complete this topic RSV Immunizations Under 20 Months Aged Out No longer eligible b ased on patient's age to complete this topic Care Teams Fur Operator Relationship Specialty Start Date End Date Darren Queen MD [address] [place] [address] PCP - General 04/06/14
[2024-09-08 14:35] LABS: Glucose Point of Care 91 mg/dl (65-105)
[2024-09-08 16:24] LABS: Basophils Percent Auto 0.8 % (0.2-1.2); Eosinophils Absolute Auto 0.1 K/mm3 (0-0.3); Eosinophils Percent Auto 1.7 % (0-4.4); Hemoglobin 12.4 g/dL (12.0-15.0); Immature Granulocyte Absolute 0.01 K/mm3 (0.00-0.031); Immature Granulocyte Percent A 0.2 % (0-0.5); Lymphocytes Absolute Auto 1.04 K/mm3 (0.9-3.2); Lymphocytes Percent Auto 19.9 % (18.3-44.2); Mean Corpuscular HGB Conc 31.8 g/dl (32-36); Mean Corpuscular Hemoglobin 29.2 pg (26-34); Mean Platelet Volume 10.4 fl (7.4-10.4); Monocytes Absolute Auto 0.3 K/mm3 (0.1-0.6); Monocytes Percent Auto 6.1 % (2.6-8.5); Neutrophils Absolute Auto 3.7 K/mm3 (1.3-6.7); Neutrophils Percent Auto 71.3 % (45.5-73.1); Platelet Count Result 263 k/mm3 (150-375); Red Blood Count 4.24 M/mm3 (4.2-5.4); White Blood Count 5.2 K/mm3 (4.5-10.0)
[2024-09-08 16:45] LABS: Alanine Aminotransferase 28 U/L (6-35); Albumin Level 4.2 g/dL (3.5-5.1); Alkaline Phosphatase 81 U/L (38-126); Anion Gap 8 mmol/L (4-12); Aspartate Amino Transferase 32 U/L (14-36); Bilirubin,Total 0.3 mg/dL (0.2-1.3); Blood Urea Nitrogen 26 mg/dL (7-17); Calcium 9.6 mg/dL (8.4-10.2); Carbon Dioxide 27 mmol/L (22-30); Chloride 104 mmol/L (98-107); Estimated Glomerular Filt Rate 54; Glucose 99 mg/dL (65-110); Potassium 4.1 mmol/L (3.4-5.0); Sodium 139 mmol/L (137-145); Total Protein 7.9 g/dL (6.3-8.2)
[2024-09-08 17:15] LABS: Carcinoembryonic Antigen 5.4 ng/mL (0.0-3.0)
== END 2024-09-08 13:53 | disposition home or self-care (01) ==
PROVIDERS: PCP Family Medicine; Visit Provider Internal Medicine Hematology & Oncology
DX: C18.8 Malignant neoplasm of overlapping sites of colon (principal)
CPT/HCPCS: 36415; 78815; 80053; 82378; 85025; A9552

== ENCOUNTER 2024-12-28 15:09 | Outpatient (CLI) | payer MEDICARE, SELFPAY ==
[2024-12-28 19:44] LABS: Add Urine Microscopic? YES; Appearance Urine Turbid (Clear); Glucose Urine UA Negative (Negative); Leukocyte Esterase Ur 2+ LEU/UL (Negative); Nitrate Urine Negative (Negative); Non Pathogenic Casts 0-2; Specific Grav Ur 1.020 (1.001-1.035)
== END 2024-12-28 15:10 | disposition home or self-care (01) ==
LOC: ANHGOSHLAB 15:10
PROVIDERS: PCP Family Medicine; Visit Provider Family Medicine
DX: N39.0 Urinary tract infection, site not specified (principal)
CPT/HCPCS: 81001; 87086

== ENCOUNTER 2025-01-20 08:39 | Outpatient (CLI) | payer MEDICARE, SELFPAY ==
--- OUTSIDE RECORDS SUMMARY | 2007-06-01 10:03 | XMS_ITS | Continuity of Care Document ---
Author Organization [facility] Address [address] [place] [address] [place] [address] Phone Care Team Providers Care Inspector Returned Materials Name Role Phone Kayleen Galvez Unavailable Unavailable Procedures Procedure Date Office/outpatient Visit, Est Office/outpatient Visit, Est Office/outpatient Visit, Est Office/outpatient Visit, Est Eye Exam Established Pt Office/outpatient Visit, New Advance Directives Directive Yes / No Effective Date File Name No Information Encounters Encounter Description Practice Location Reason(s) For Visit Diagnoses Date Provider Providers Copied on Encounter Office/outpat ient Visit, [facility], [address] [place] [address] [address], [place], [place], [id number], tel:[phone] [facility] No Information Mar-1 1-200 8 Leonor Moore [address] , [address], [place], [place], [facility], . tel:[phone] Office/outpat ient Visit, [facility] [place], [id number] [place] [address] [address], [place], [place], [id number], tel:[phone] [facility] No Information Mar-0 4-200 8 Leonor Moore [address], [place], [place], [facility], [place]. tel:[phone] Referring Provider: Dewayne Burger, [address], [place], [place], [facility]. tel:[phone] Office/outpat ient Visit, [facility] Eye [facility], [address], [place], [place], [id number], tel:[phone] [facility] No Information Apr- 8-200 8 Cervantes OD Dewayne. [address] , [address], [place], [place], [facility], . tel:[phone] Office/outpat ient Visit, [facility] Eye [facility], [id number] [place] [address] [address], [place], [place], [id number], [place] tel:[phone] [facility] No Information 2-200 8 Cervantes OD Dewayne. [address] , [address], [place], [facility], . tel:[phone] [facility], [id number] [place] [address] [address], [place], [place], [id number], tel:[phone] [facility] No Information 9-200 8 Galvez Kayleen. [address] , [address], [place], [facility], . tel:[phone] Office/outpat ient Visit, [facility], [address] [place] [address] [address], [place], [place], [id number], tel:[phone] [facility] No Information 5-200 8 Cervantes OD Dewayne. [address] , [address], [place], [facility], . tel:[phone] Family History Family Member Type Diagnosis Age At Onset No Information Payers Payer name Insurance type Covered constitution party ID Authoriza tion(s) No Information Social History Type Description Quantity Date Captured Comments Sex Female Smoking Status No Information Chief Complaint And Reason For Visit No Information Reason For Referral Reason For Referral No Information History Of Present Illness Encounter Date Complaint History Of Prese nt Illness No Information Functional Status Date Functional Assessmen t No Information Instructions Date Instruction Additional Infor mation No Information Assessments Type Assessment Date No Information Patient Care Teams Name Effective Dates (start - stop) Status Members No Information
--- NOTE | ~2025-01-20 | CT_ITS ---
EXAMINATION: CT chest abdomen pelvis w con DATE: 01/20/2025 09:11 INDICATION: Malignant neoplasm of ascending colon. TECHNIQUE: Computed tomography (CT) of the chest, abdomen, and pelvis was performed with 100 mL Omnipaque 350 intravenous contrast. Automated exposure control and iterative reconstruction technique were employed. The dose-length product was 473.72 mGy-cm. COMPARISON: CT abdomen and pelvis 05/14/2023, 05/14/2022, PET/CT 10/25/2019 FINDINGS: CHEST CT: The lungs demonstrate mild atelectasis. Calcified left lung nodules and calcified mediastinal lymph nodes are consistent with old granulomatous disease. There is a 4 mm nodule in left lung upper lobe, stable from 10/25/2019, likely benign. No pleural effusion. The heart size is normal. There are calcifications of the aortic valve. There are coronary artery calcifications. No pericardial effusion. There is a right internal jugular port with tip in superior vena cava. There is severe thoracic spondylosis. There is mild chronic anterior wedging of multiple vertebral bodies. ABDOMEN/PELVIS CT: Calcifications in the liver and spleen are consistent with old granulomatous disease. There is a chronic 5 mm cyst in the liver. The gallbladder, pancreas, and adrenal glands are normal. There is cortical thinning of the kidneys. There are no dilated loops of bowel. There is diverticulosis of the colon without evidence of diverticulitis. There are changes of right hemicolectomy. There are no pathologically enlarged lymph nodes. There is no free intraperitoneal fluid. There is a right hip hemiarthroplasty. There is severe lumbar spondylosis. IMPRESSION: 1. No evidence of metastatic disease. Reviewed, dictated and finalized at location E.
--- OUTSIDE RECORDS SUMMARY | 2025-01-20 08:59 | XMS_ITS | Clinical Summary ---
Author Organization [facility] Address [facility] [place] [address] Care Team Providers Care Business Services Assistant Name Role Phone Darren Queen MD Primary Care Provider [phone] Social History Tobacco Use Types Packs/Day Years [...] 75+ series) 2012 COVID-19 Vaccine (3 - 2024-2 6 season) 2024 06/15/2020, 05/18/2020 Influenza Adult (#1) 2024 01/17/2019, 01/19/2018 Hepatitis A Vaccines Aged Out No long er eligible based on patient's age to complete this topic Meningococcal B Vaccine Aged Out No l onger eligible based on patient's age to complete this topic Meningococcal Vaccine Aged Out No minda hudson eligible based on patient's age to complete this topic RSV Immunizations Under 20 Months Aged Out No longer eligible b ased on patient's age to complete this topic Care Teams Business Services Assistant Relationship Specialty Start Date End Date Darren Queen MD [address] [place] [address] PCP - General 04/06/14
--- OUTSIDE RECORDS SUMMARY | 2025-01-20 09:00 | XMS_ITS | Clinical Summary ---
Author Organization [facility] Address [address] [place] [address] Care Team Providers Care Warehouse And Receiving Supervisor Name Role Phone Michael Higgins MD Primary Care Provider Allergies No known active allergies Medications meloxicam (MOBIC) 15 mg tablet Take 1 tablet by mouth daily. 8 Active traMADol (ULTRAM) 50 mg tablet Take 50 mg by mouth 2 (two) times a day. 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 [place] [phone] Care Teams Warehouse And Receiving Supervisor Relationship Specialty Start Date End Date Michael Higgins MD PCP - General Family Practice 12/14/17
--- OUTSIDE RECORDS SUMMARY | 2025-01-20 09:00 | XMS_ITS | Clinical Summary ---
Author Organization [facility] Abril Ortiz Address [address] [place] [address] Care Team Providers Care Ore Dressing Engineer Name Role Phone Michael Higgins MD Primary [...] Encounters Date Type Department Care Team Description 01/11/2025 1:15 PM CDT Office Visit [facility] Oncology and Hematology [facility] [address] [place] [address] Hardik Chapa MD Malignant neoplasm of ascending colon (CMS/HCC) (Primary Dx) 01/10/2025 Orders Only [facility] Oncology and [facility] [address] [place] [address] Hardik Chapa MD 10/25/2024 External Device Data STL ABSTRACTION Provider, Abstract [...] Sex Assigned at Female 02/16/2024 5:[address] [place] LAW CLERK Legal Sex Female 8:34 AM CDT Gender Identity Female 02/16/2024 5:[address] [place] LAW CLERK Sexual Orientation Not on file Last Filed Vital Signs Vital Sign Reading Time Taken Comments Blood Pressure 114/64 01/11/2025 1:08 PM CDT Pulse 76 01/11/2025 1:08 PM CDT Temperature 36.9 C (98.4 F) 01/11/2025 1:08 PM CDT Respiratory Rate 16 01/11/2025 1:08 PM CDT Oxygen Saturation 94% 01/11/2025 1:08 PM CDT Inhaled Oxygen Concentration - - Weight 62.8 kg (138 lb 6.4 oz) 01/11/2025 1:08 P M CDT Height 172.7 cm (5' 8) 10/02/2021 2:32 PM CDT Body Mass Index 21.04 10/02/2021 2:32 PM CDT Plan of Treatment Upcoming Encounters Date Type Department Care Team (Late st Contact Info) Description 01/26/2025 4:[address] [place] LAW CLERK Telephone Check Up [facility] Oncology and Hematology - [place] [address] [facility] [address] [place] [address] Hardik Chapa MD [address] [facility] [address] [place] [address] Health Maintenance Due Date Last Done Comments DTAP/TDAP/TD VACCINES (1 - Tdap) 1954 PNEUMOCOCCAL VACCINE 50+ YEA RS (1 of 1 - PCV) 06/13/1987 ZOSTER VACCINE (1 of 2) 06/13/1987 OSTEOPOROSIS SCREENING 2002 RSV VACCINE (60+ or ) (1 - 1-dose 75+ series) 2012 INFLUENZA VACCINE (#1) 2024 01/09/2020, 2019 Procedures Procedure Name Priority Date/Time Associated Diagnosis Comments COMPREHENSIVE METABOLIC PANEL Routine 01/09/2025 1:44 PM CDT CBC WITH AUTODIFFERENTIAL Routine 2024 1:38 PM CDT from Last 3 Months Results * COMPREHENSIVE METABOLIC PANEL (01/09/2025 1:44 PM CDT) Blood Hardik Chapa MD CHEMISTRY ORDERABLES Final Resu lt * CBC WITH AUTODIFFERENTIAL (01/09/2025 1:38 PM CDT) Blood Hardik Chapa MD HEMATOLOGY ORDERABLES Final Res ult from Last 3 Months Insurance [facility] [id number] Advance Directives For more information, please contact: [phone] Documents on File Type Date Recorded Patient Seasoner Expl anation Advance Directive POA 11/07/2019 9:04 AM A dvance Directive POA Care Teams Ore Dressing Engineer Relationship Specialty Start Date End Date Michael Higgins MD [address] [place] [address] PCP - General Family Practice 09/30/19
--- OUTSIDE RECORDS SUMMARY | 2025-01-20 09:00 | XMS_ITS | Clinical Summary ---
Author Organization [facility] Address [address] [place] [address] Care Team Providers Care Paint Brush Maker Name Role Phone Michael Higgins MD Primary Care Provider Source Comments [facility],non-owned Affiliates and Associated Physician Practices is amultiple site organization consisting of ambulatory clinics and hospital sitesin [place], [place], [place] and [place]. This disclosure is being madepursuant to the Care Everywhere program and may not contain all information available regarding this patient. 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 Gender Identity Not on file Sexual Orientation [...] yrs (1 - 1-dose 75+ series) 2012 DEPRESSION SCREENING 03/23/2024 COVID-19 VACCINE (1 - 2023-2 5 season) 2024 INFLUENZA VACCINE (#1) 2024 01/09/2020 HEPATITIS B VACCINE Aged Out No longe [...] patient's age to complete this topic Insurance [facility] MANAGED [place] [id number] UHC MANAGED MEDICARE ADV Advance Directives Documents on File Type Date Recorded Patient Research Affiliate Expl anation Adv Directive/Living Will/POA 07/18/2011 9:36 AM * FULL RESUSCITATION (Latest Code Status on File) Date Activated Date Inactivated Comments 07/14/2011 12:44 PM 07/15/2011 11:04 PM Care Teams Paint Brush Maker Relationship Specialty Start Date End Date Michael Higgins MD [address] [place] [address] [facility] - General 10/01/17
== END 2025-01-20 08:40 | disposition home or self-care (01) ==
PROVIDERS: PCP Family Medicine; Visit Provider Internal Medicine Hematology & Oncology
DX: C18.2 Malignant neoplasm of ascending colon (principal)
CPT/HCPCS: 71260; 74177; Q9967

== ENCOUNTER 2025-02-27 15:17 | Outpatient (CLI) | payer MEDICARE, SELFPAY ==
[2025-02-27 18:59] LABS: Hemoglobin A1C 5.7 % (<5.7)
[2025-02-27 19:20] LABS: Alanine Aminotransferase 18 U/L (6-35); Albumin Level 4.1 g/dL (3.5-5.1); Alkaline Phosphatase 81 U/L (38-126); Anion Gap 5 mmol/L (4-12); Aspartate Amino Transferase 27 U/L (14-36); Bilirubin,Total 0.4 mg/dL (0.2-1.3); Blood Urea Nitrogen 31 mg/dL (7-17); Calcium 9.7 mg/dL (8.4-10.2); Carbon Dioxide 31 mmol/L (22-30); Chloride 101 mmol/L (98-107); Estimated Glomerular Filt Rate 46; Glucose 100 mg/dL (65-110); Potassium 5.0 mmol/L (3.4-5.0); Sodium 137 mmol/L (137-145); Total Protein 7.8 g/dL (6.3-8.2)
== END 2025-02-27 15:18 | disposition home or self-care (01) ==
LOC: ANHGOSHLAB 15:17
PROVIDERS: PCP Family Medicine; Visit Provider Family Medicine
DX: R73.03 Prediabetes (principal); I10 Essential (primary) hypertension
CPT/HCPCS: 36415; 80053; 83036

== ENCOUNTER 2025-03-13 03:17 | Day surgery (SDC) | payer MEDICARE, SELFPAY ==
[2025-03-08 11:00] VITALS: BMI 22.7
--- NOTE | 2025-03-08 11:12 | PC.NURSE ---
[facility] has started construction of its new state of the art ER which will open Spring 2026. With this, we anticipate parking may be a challenge for some our surgical patients and families. Parking spaces are limited but are available for all Surgical, obstetrics, and ER patients sharing this lot. If you arrive and find you are having a hard time finding a parking space, please note that we understand the challenges, please drive around the hospital and park near Hospital Entrance 1. When you enter this entrance, you can ask a volunteer to direct or take you back to the surgical waiting area to check in. We appreciate everyone?s understanding of these expected challenges while we build for your future. Report to the Outpatient Waiting Room, entrance under the green pavilion located off [address], at time _11:30am on date __03/13/25 . Planned Procedure Time: __1:30pm .? Time changes happen often and if your time is changed the preop area will call you the afternoon before. - You and your visitor will be asked to self-screen and do not enter if you have any COVID symptoms. Please call surgeon if you need to reschedule. - A mask is optional within the hospital at this time. Patients may have clear liquids (water, carbonated beverages, clear teas, apple juice) until 3 hours prior to surgery with a maximum of 20 ounces. - No food from midnight until time of surgery and no smoking, or chewing tobacco (or any form of nicotine). No chewing gum, candy or mints. (10:30am) Take only the following medications with a SIP of water on the morning of surgery: ___ Pregagen, Gabapentin, Tylenol if needed DO NOT STOP ANY OF YOUR OTHER PRESCRIPTION MEDICATIONS PRIOR TO SURGERY EXCEPT THE FOLLOWING Hold all vitamins and supplements for 3 days per anesthesiologist. Date of last dose is 03/09/25 Medications to discontinue per physician NONE Date to take last dose____NONE Please no make-up, nail kiswahili, hairspray, perfume, deodorant, or body powder the day of surgery.? No jewelry (including any body piercings) or valuables the day of surgery, leave them at home.? Please take a shower or bath the night before, or the morning of, surgery with an antibacterial soap.? Wear comfortable, loose fitting clothing.? - Jewelry must be removed prior to entering the operating room.? Rings and piercings that are not removed may be cut off. - The hospital will not accept responsibility for valuables.? - Please leave all valuables, including medications, at home the day of surgery. If you are going home after surgery, a licensed roll off driver must drive you home.? - NO public transportation without another adult if you receive anesthesia. - We recommend that an adult stay with you for 24 hours following discharge. - We also recommend that you do not drive, make important decision, drink alcoholic beverages, or take any drugs that were not prescribed by your health care provider for at least 24 hours after your discharge time. Follow any additional instructions given to you from your surgeon. Telephone instructions given to ___Gretchen ( daughter) and asked if any additional questions and then verbalized understanding. Patient advised to call surgeon office or pre surgery nurse liaison [phone] if any additional questions.
--- OUTSIDE RECORDS SUMMARY | 2025-03-13 03:21 | XMS_ITS | Clinical Summary ---
Author Organization [facility] Abril Ortiz Address [address] [place] [address] Care Team Providers Care Pension Agent Name Role Phone Michael Higgins MD Primary [...] Encounters Date Type Department Care Team Description 02/14/2025 Telephone [facility] Oncology and Hematology [facility] [address] [place] [address] Hardik Chapa MD Port Removal 02/07/2025 External Device Data STL ABSTRACTION Provider, Abstract 01/26/2025 4:45 PM OCEAN RESCUE LIEUTENANT Telephone Check Up [facility] Oncology [facility] [address] [place] [address] Hardik Chapa MD Malignant neoplasm of ascending colon (CMS/HCC) (Primary Dx) 01/23/2025 Orders Only [facility] Oncology [facility] [address] [place] [address] Hardik Chapa MD 01/11/2025 1:15 PM CDT Office Visit [facility] Oncology and [facility] [address] [place] [address] Hardik Chapa MD Malignant neoplasm of ascending colon (CMS/HCC) (Primary Dx) 01/10/2025 Orders Only [facility] Oncology [facility] [address] [place] [address] Hardik Chapa MD from Last 3 Months Family History [...] Sex Assigned at Female 02/16/2024 5:57 PM OCEAN RESCUE LIEUTENANT Legal Sex Female 8:34 AM CDT Gender Identity Female 02/16/2024 5:57 PM OCEAN RESCUE LIEUTENANT Sexual Orientation Not on file Last Filed [...] Care Team (Late st Contact Info) Description 06/05/2025 2:30 PM CDT Office Visit [facility] Oncology and Hematology - [place] [address] [facility] [facility] [address] [place] [address] Hardik Chapa MD [address] [place] [address] Health Maintenance Due Date Last Done Comments DTAP/TDAP/TD VACCINES (1 - Tdap) 1954 PNEUMOCOCCAL VACCINE 50+ YEA RS (1 of 1 - PCV) 06/13/1987 ZOSTER VACCINE (1 of 2) 06/13/1987 OSTEOPOROSIS SCREENING 2002 RSV VACCINE (60+ or ) (1 - 1-dose 75+ series) 2012 INFLUENZA VACCINE (#1) 2024 01/09/2020, 2019 Procedures Procedure Name Priority Date/Time Associated Diagnosis Comments CT CHEST ABDOMEN PELVIS W CONT Routine 01/20/2025 7:41 AM CDT COMPREHENSIVE METABOLIC PANEL Routine 01/09/2025 1:44 PM CDT CBC WITH AUTODIFFERENTIAL Routine 2024 1:38 PM CDT from Last 3 Months Results * CT CHEST ABDOMEN PELVIS W CONT (01/20/2025 7:41 AM CDT) Anatomical Region Laterality Modality Chest Computed Tomogra phy Hardik Chapa MD CT ORDERABLES Final Result * COMPREHENSIVE METABOLIC PANEL (01/09/2025 1:44 PM CDT) Blood Hardik Chapa MD CHEMISTRY ORDERABLES Final Resu lt * CBC WITH AUTODIFFERENTIAL (01/09/2025 1:38 PM CDT) Blood Hardik Chapa MD HEMATOLOGY ORDERABLES Final Res ult from Last 3 Months Insurance [facility] [id number] Advance Directives For more information, please contact: [phone] Documents on File Type Date Recorded Patient Towel Inspector Expl anation Advance Directive POA 11/07/2019 9:04 AM A dvance Directive POA Care Teams Pension Agent Relationship Specialty Start Date End Date Michael Higgins MD [address] [place] [address] PCP - General Family Practice 09/30/19
--- OUTSIDE RECORDS SUMMARY | 2025-03-13 03:21 | XMS_ITS | Clinical Summary ---
Author Organization [facility] Address [facility]ending [facility] [place] [address] Care Team Providers Care Zoning Technician Name Role Phone Darren Queen MD Primary Care Provider [phone] Social History Tobacco Use Types Packs/Day Years [...] age to complete this topic Care Teams Zoning Technician Relationship Specialty Start Date End Date Darren Queen MD [address] [place] [address] PCP - General 04/06/14
--- OUTSIDE RECORDS SUMMARY | 2025-03-13 03:21 | XMS_ITS | Clinical Summary ---
Author Organization [facility] Address [address] [place] [address] Care Team Providers Care Civil Designer Name Role Phone Mihcael Higgins MD Primary Care Provider Source Comments [facility],non-owned Affiliates and Associated Physician Practices is amultiple site organization consisting of ambulatory clinics and hospital sitesin [place], [place], [place] and [place]. This disclosure is being madepursuant to the Care Everywhere program and may not contain all information available regarding this patient. 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 Gender Identity Not on file Sexual Orientation [...] DEPRESSION SCREENING 03/23/2024 COVID-19 VACCINE (1 - 2024-2 6 season) 2024 INFLUENZA VACCINE (#1) 2024 01/09/2020 [...] to complete this topic Insurance [facility] MANAGED MEDICARE ADV [employer] MANAGED MEDICARE ADV Advance Directives Documents on File Type Date Recorded Patient Mastercam Programmer Expl anation Adv Directive/Living Will/POA 07/18/2011 9:36 AM * FULL RESUSCITATION (Latest Code Status on File) Date Activated Date Inactivated Comments 07/14/2011 12:44 PM 07/15/2011 11:04 PM Care Teams Civil Designer Relationship Specialty Start Date End Date Michael Higgins MD [address] [place] [id number] PCP - General 10/01/17
--- OUTSIDE RECORDS SUMMARY | 2025-03-13 03:21 | XMS_ITS | Clinical Summary ---
Author Organization [facility] - [facility] Address [address] [place] [address] Phone Care Team Providers Care Manager Privacy Name Role Phone Michael Higgins MD Primary Care Provider Davion Benitez MD Unavailable [phone] Allergies No known active allergies Medications ferrous [...] Apoaequorin (PREVAGEN PO) Take by mouth. Active lisinopril (PRINIVIL, ZESTRIL) 20 MG Tablet Take 20 mg by mouth daily. Active donepezil (ARICEPT) 10 MG Tablet Take 1 Tablet by mouth nightly. 90 Tablet 1 01/27/2025 Active Encounters Date Type Department Care Team Description 01/27/2025 Refill [facility] - Neurology [facility] [address] [place] [address] Davion Benitez MD Medication Refill from Last 3 Months Family History Medical History Relation Name Comments Colon Cancer Mother Relation Name Status Comments Mother Social History Tobacco Use Types Packs/Day Years Used Date Smoking Tobacco: Former Cigarettes 0.5 Q uit: 03/23/1973 Smokeless Tobacco: Never Tobacco [...] Sign Reading Time Taken Comments Blood Pressure 118/64 10/10/2024 2:02 PM CDT Pulse 78 10/10/2024 2:02 PM CDT Temperature 36.4 C (97.5 F) 10/10/2024 2:02 PM CDT Respiratory Rate 17 10/10/2024 2:02 PM CDT Oxygen Saturation 96% 10/10/2024 2:02 PM CDT Inhaled Oxygen Concentration - - Weight 62 kg (136 lb 9.6 oz) 10/10/2024 2:02 PM CDT Height 165.1 cm (5' 5) 10/10/2024 2:02 PM CDT Body Mass Index 22.73 10/10/2024 2:02 PM CDT Plan of Treatment Upcoming Encounters Date Type Department Care Team (Late st Contact Info) Description 04/10/2025 1:30 PM OUTSOLE HANDLER Office Visit [facility] - Neurology [facility] [address] [place] [address] Davion Benitez MD [address] [place] [address] Health Maintenance Due Date Last Done Comments DEXA Bone Density 1935 Hepatitis C Virus (HCV) Screening 1935 TdaP Immunization 1935 Zoster Immunization (1 of 2) 06/13/1987 Respiratory Syncytial Virus (RSV) Immunization (Adult) (1 - 1-dose 75+ series) 2012 Medicare Initial AWV [id number] 03/23/2022 Influenza Immunization (#1) 2024 1005/2022, 01/15/2022, 01/09/2021, Additional history exists SARS-COV-2 Immunization ( season) 2024 01/12/2023, 10/14/2021, 02/22/2021, Additional history exists Pneumococcal Immunization (50+ years) Completed 08/11/2024 Hepatitis B Immunization Aged Out No longer eligible based on patient's age to complete this topic Human Papillomavirus (HPV) Immunization (No Doses Required) Completed Meningococcal Immunization (ACWY) Aged Out No longer eligible based on patient's age to complete this topic Rotavirus Immunization Aged Out No lo nger eligible based on patient's age to complete this topic Insurance [facility]IC[facility] [place] [address] Care Teams Manager Privacy Relationship Specialty Start Date End Date Michael Higgins MD PCP - General Family Medicine 10/10/21 Davion Benitez MD [address] [place] [address] Consulting Physician Neurology 01/23/22
--- OUTSIDE RECORDS SUMMARY | 2025-03-13 03:21 | XMS_ITS | Clinical Summary ---
Author Organization [facility] Building [facility] Address [address] [place] [address] Care Team Providers Care Application Support Intern Name Role Phone Michael Higgins MD Primary Care Provider Allergies No known active allergies Medications meloxicam (MOBIC) 15 mg tablet Take 1 tablet by mouth daily. 8 Active traMADol (ULTRAM) 50 mg tablet Take 50 mg by mouth 2 (two) times a day. 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
--- OUTSIDE RECORDS SUMMARY | 2025-03-13 03:21 | XMS_ITS | Data Portability ---
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 She has solp-ho-aukj arthritis both knees right is much worse [...] back in a month for follow-up discussed. [email or web address] Not available 09/18/2022 14:02:43 12/19/2022 12/19/2022 the [...] Not Attach Compendium, Do Not Delete/merge, 4 14:47:13 injection/a spiration joint/bursa (PROC) 2023 024 [email or web address] In-Office Order, Internal Use Only DO Not Attach Compendium DO Not Attach Compendium, Do Not Delete/merge, 4 14:26:13 injection/a spiration joint/bursa (PROC) 2023 024 [email or web address] In-Office Order, Internal Use Only DO Not Attach Compendium DO Not Attach Compendium, Do Not Delete/merge, 4 14:53:38 injection/a spiration joint/bursa (PROC) 2022 023 [email or web address] In-Office Order, Internal Use Only DO Not Attach Compendium DO Not Attach Compendium, Do Not Delete/merge, 3 13:49:07 injection/a spiration joint/bursa (PROC) - in office procedure, administere d by provider 2022 023 [email or web address] In-Office Order, Internal Use Only DO Not Attach Compendium DO Not Attach Compendium, Do Not Delete/merge, [id number] 3 13:55:14 injection/a spiration joint/bursa (PROC) - in office procedure, administere d by provider 2022 023 [email or web address] In-Office Order, Internal Use Only DO Not Attach Compendium DO Not Attach Compendium, Do Not Delete/merge, [id number] 3 13:45:52 Surgeries None recorded. Imaging XR, hip + pelvis, unilateral 2023 024 [email or web address] [facility] [place], [address], [place], [address], 4 16:08:19 XR, knee 2022 023 [email or web address] [facility] [place], [address], [place], [address], 3 16:37:29 Medication Orders bupivacaine HCl 0.5 % (5 mg/mL) injection solution 2023 024 [email or web address]09503, [address] [facility], [place], [place], [id number], 4 16:08:19 Kenalog 10 mg/mL suspension for injection [address] [facility]31719, [address] [place], [place], [id number], 4 16:08:19 bupivacaine HCl 0.5 % (5 mg/mL) injection solution [address] [facility]91517, [address] [place], [place], [id number], 4 16:08:19 Kenalog 10 mg/mL suspension for injection [address] [facility] #00581, [address] [place], [place], [id number], 4 16:08:19 Kenalog 10 mg/mL suspension for injection [address] [facility] #05441, [address] [place], [place], [id number], 4 16:28:29 Marcaine 0.5 % (5 mg/mL) injection solution 2023 024 [facility] [email or web address] [facility] #38203, [address] [place], [place], [id number], 4 16:28:29 bupivacaine HCl 0.5 % (5 mg/mL) injection solution 2022 023 [facility] #13895, [address], [place], [place], [id number], 4 14:49:51 Kenalog 10 mg/mL suspension for injection 2022 023 [facility] [place], [place] [address] [facility] #08480, [address], [place], [place], [id number], 4 14:50:19 Kenalog 10 mg/mL suspension for injection [address] [facility] #90731, [address], [place], [place], [id number], 4 14:50:19 ropivacaine (PF) 5 mg/mL (0.5 %) injection solution 2022 023 [email or web address] [facility] #28322, [address], [place], [place], [id number], 3 16:37:29 Kenalog 10 mg/mL suspension for injection [address] [facility] #03796, [address], [place], [place], [id number], 4 14:50:19 ropivacaine (PF) 5 mg/mL (0.5 %) injection solution 2022 023 [email or web address] [facility] #05112, [address], [place], [place], [id number], 3 14:01:09 celecoxib 200 mg capsule [address] [facility] #33256, [address], [place], [place], [id number], 4 14:50:01 Patient TargetsNo targets recorded. Patient InstructionsNo instructions recorded. Reason for Referral None Reported. Results Created Date Observation Date Name Description Value Unit Range Abnormal Flag Note LastModifiedBy Organization Detail LastModifiedTime 12/20/19 23 XR, knee No observ ation record ed. [email or web address] [facility] [place] [address], [place], [address], 12/19/2022 14:27:49 08/13/19 24 XR, hip + pelvi s, unila teral No observ ation record ed. [email or web address] [facility] [place] [address], [place], [address], 08/13/2023 15:18:55 Result Notes None recorded. Problems Name Problem SNOMED Code Status Onset Date Resolution Date Notes Provider Name and Address Organization Details Recorded Time Osteoarthr itis 497208411 Active Not Available [facility] 3 13:30:50 Bilateral osteoarthr itis of knees 9990445885094 07 Active 2021 Not Available [facility] 3 13:30:50 Pain of right knee joint 1538865182690 00 Active 2021 Not Available [facility] 3 13:30:50 Pain of left knee joint 6906223224317 07 Active 2021 Not Available [facility] 3 13:30:50 Pain of right hip joint 1834516414430 02 Active 2023 TERRENCE Olivia, [place] [facility] [place] [facility] 4 14:45:06 Trochanter ic bursitis of right hip 7368544277589 00 Active 2023 TERRENCE Olivia, [place] [facility] 4 14:45:29 Problem Notes None recorded. Procedures Surgical History Date Name Laterality Status Provider Name and Address Organization Details Recorded Time 3 Ortho - Cortisone Injection completed Darren Wells MD [address] [place] [address], [address] [address], [place], [address], [facility] 09/18/2022 14:01:55 Colon Surgery completed Not Available [...] 20 mg by injection route. 2023 active [place]: 0003- 0494- 20 Not Available Not Available [...] administe red by the provider 05/24 completed [facility]: 0409- 4276- 17 Not Available Not Available [...] %) injection solution in office 2022 active [facility] 81571 -064- 01 Not Available Not Available Not [...] Updated DateTime 05/28/2023 165.1 cm 26.6 kg/m2 03223.78 g Marta Nasim [employer] [facility] [employer] 05/28/2023 14:49:28 Date Recorded Body height Body mass index (BMI) Body weight Provider Name and Address Organization Details Last Updated DateTime 08/13/2023 165.1 cm 24.6 kg/m2 53170.67 enrrique 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 [employer] 08/13/2023 14:24:28 Date Recorded Body height Body mass index (BMI) Body weight Provider Name and Address Organization Details Last Updated DateTime 09/18/2022 165.1 cm 23.3 kg/m2 60792.93 enrrique 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 Functional Status Question Answer Note LastModified by Organizat ion Details LastModified Time What is your level of alcohol consumption? None [id number] Information not available 05/21/2022 Mental Status None recorded. Family History Relationship Description Onset Age of this Age Resolved Age Notes LastModified by Organization Details LastModified Time Unspecified Relation Family history of malignant neoplasm [id number] Not available 05/21/2022 13:30:04 Medical History Condition Response CANCER: SPECIFY Y ARTHRITIS Y URINARY/BLADDER/KIDNEY PROBLEMS Y Gynecological HistoryNo gynecological history recorded. Obstetrics History GPAL:G 0 P 0 0 0 0 Past Encounters Encounter ID Performer Location Encounter Start Date Encounter Closed Date Diagnosis/Indication Diagnosis SNOMED-CT Code Diagnosis ICD10 Code Diagnosis IMO Codes Diagnosis Note [id number] MD BETH [facility] [place] [address] [place] [address] 06/14/2020 00:00:00 06/14/2020 11:30:09 [id number] EULOGIO Disla [facility] [place] [address] [place] [address] 09/12/2020 00:00:00 09/12/2020 12:01:47 [id number] EULOGIO Disla [facility] [place] [address] [place] [address] 11/19/2020 00:00:00 11/19/2020 09:57:56 [id number] EULOGIO Disla [facility] [place] [address] [place] [address] 12/11/2020 00:00:00 12/11/2020 15:16:20 [id number] MD BETH [facility] [place] [address] [place] [address] 03/04/2021 00:00:00 03/04/2021 12:36:20 [id number] Darren Wells MD [facility] [place] [address] [place] [address] 05/24/2021 00:00:00 05/24/2021 14:39:32 [id number] Darren Wells MD [facility] [place] [address] [place] [address] 07/29/2021 00:00:00 07/29/2021 12:10:27 [id number] Darren Wells MD [facility] [place] [address] [place] [address] 10/14/2021 00:00:00 10/14/2021 12:08:02 [id number] Darren Wells MD [facility] [place] [address] [place] [address] 01/09/2022 00:00:00 01/09/2022 14:17:14 [id number] Darren Wells MD [facility] [place] [address] [place] [address] 03/27/2022 00:00:00 03/27/2022 14:42:16 [id number] Darren Wells MD [facility] [place] [address] [place] [address] 06/20/2022 14:02:53 06/20/2022 15:00:49 Pain of right knee joint 4506960682 02199 M25.561 Pain of le ft knee joint 0374961238 69299 M25.562 Bilateral osteoarthritis of knees 5700235289 72355 M17.0 [id number] Darren Wells MD [facility] [place] [address] [place] [address] 09/18/2022 13:38:44 09/18/2022 14:01:53 Pain of right knee joint 8652485230 95835 M25.561 Pain of le ft knee joint 0136766947 54602 M25.562 Bilateral osteoarthritis of knees 0987456298 46302 M17.0 [id number] Gregg Whyte MD [facility] [place] [address] [place] [address] 12/19/2022 13:46:35 12/19/2022 14:37:03 Bilateral osteoarthritis of knees 5353407364 23394 M17.0 Pain of le ft knee joint 9855164529 94966 M25.562 Pain of ri ght knee joint 8864268552 90445 M25.070 [id number] EULOGIO Disla [facility] [place] [address] [place] [address] 03/10/2023 13:36:39 03/10/2023 14:09:43 Bilateral osteoarthritis of knees 6001487381 28628 M17.0 Pain of ri ght knee joint 6103172120 47880 M25.561 Pain of le ft knee joint 2946554064 54300 M25.562 Osteoarthritis 505389364 M17.11 [id number] Mark Anthony Sylvester MD [facility] [place] [address] [place] [address] 05/28/2023 14:10:08 05/28/2023 15:18:38 Bilateral osteoarthritis of knees 4225574106 19633 M17.0 Pain of ri ght knee joint 2746186464 55515 M25.561 Pain of le ft knee joint 9262797907 14242 M25.409 [id number] Mark Anthony Sylvester MD [facility] [place] 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 (MEDICARE REPLACEMENT/A DVANTAGE - HMO) [id number] Sihra Call Tianna [id number] Shira Wynn Notes Date Note Type Note Provider Name [...] in either knee. Darren Wells MD [address], [place], [address], [employer] 09/18/2022 14:03:08 12/19/2022 text/html Patient returns requesting bilateral knee injections. She has severe dgik-hq-edwg arthritis right is worse than the left she has valgus deformities ofll-ql-rtxk changes some erosion of the lateral tibial [...] other signs of infection. EULOGIO Disla [address], [employer], [place], [address], [employer] 12/19/2022 14:28:15 03/10/2023 text/html Patient returns complaining [...] EULOGIO Disla [address], [place], [address], [employer] [facility] 03/10/2023 14:12:31 05/28/2023 text/html Patient returns complaining [...] EULOGIO Disla [address], [place], [address], [employer] 05/28/2023 15:22:25 08/13/2023 text/html patient returns with [...] repeat those today as well. EULOGIO Disla [address] [place] [address], [facility] [address], [place], [address], [place] [facility] 08/13/2023 15:20:03 OBGyn Episode No OBEpisode recorded.
--- NOTE | 2025-03-13 07:18 | WPDHPUPDATE1 ---
History and Physical Update Update Date/Time: 03/13/25 07:18 History and Physical has been reviewed, including an updated exam of the patient. There are NO changes in the patient's condition. Risks, benefits, and alternatives have been discussed and questions answered. Patient agrees to proceed with procedure.
[2025-03-13] MEDS: LACTATED RINGERS 1,000 ML 30 ML IV CONT (13:20)
[2025-03-13 13:35] VITALS: BP 134/53; PULSE 62; RESP 16; TEMP 36.2; O2SAT 99; BMI 23.3
[2025-03-13 13:48] LABS: Hematocrit 35.7 % (37.0-47.0); Hemoglobin 11.4 g/dL (12.0-15.0)
[2025-03-13 14:02] LABS: INR 1.0; Prothrombin Time 13.6 Seconds (11.1-14.7)
[2025-03-13 14:03] LABS: Partial Thromboplastin Time 31.4 Seconds (22.3-36.8)
--- NOTE | 2025-03-13 14:37 | WPDANESEPPF ---
Anes - Initial Pre Proc Eval Procedure: Operation Date: 03/13/25 13:30 Proposed Procedures p Removal of Right Internal Jugular Venous Access Device - Edith Medrano MD Date/Time: 03/13/25 14:37 Surgeon: Edith Medrano MD Pre Op Diagnosis: colon cancer Patient Data Age: 89 Gender: F Height: 1.65 m Weight: 63.5 kg Last Vital Signs Temp 36.2 C L 03/13/25 13:35 Pulse 62 03/13/25 13:35 Resp 16 03/13/25 13:35 BP 134/53 L 03/13/25 13:35 Pulse Ox 99 03/13/25 13:35 Allergies Allergy/AdvReac Type Severity Reaction Status Date / Time No Known Allergies Allergy Mild Verified 03/13/25 14:13 Home Medications ?Medication ?Instructions ?Recorded ?Confirmed ?Type multivitamin 1 tablet PO DAILY 11/04/21 03/08/25 History donepezil 10 mg tablet 10 mg PO DAILY 10/29/23 03/08/25 History acetaminophen 500 mg tablet 1,000 mg PO BID PRN pain 08/11/24 03/08/25 History (Tylenol Extra Strength) ferrous sulfate 27 mg iron tablet 27 mg PO DAILY 08/11/24 03/08/25 History wheel chair #1 ea 08/11/24 03/08/25 Rx gabapentin 300 mg capsule 300 mg PO BID #180 caps 11/14/24 03/08/25 Rx lisinopril 20 mg tablet 20 mg PO DAILY #90 tabs 01/30/25 03/08/25 Rx Prevagen 1 tablet PO DAILY 02/27/25 03/08/25 History cholecalciferol (vitamin D3) 50 50 mcg PO DAILY 02/27/25 03/08/25 History mcg (2,000 unit) capsule mecobalamin (vitamin B12) 500 mcg 500 mcg PO WEEKLY 02/27/25 03/08/25 History chewable tablet vibegron 75 mg tablet (Gemtesa) 75 mg PO DAILY 02/27/25 03/08/25 History Laboratory Tests 03/13/25 13:30 Hgb 11.4 L g/dL (12.0-15.0) Hct 35.7 L % (37.0-47.0) PT 13.6 Seconds (11.1-14.7) INR 1.0 APTT 31.4 Seconds (22.3-36.8) ECG: SR with RBBB Patient hx anesthesia problems: none Family hx anesthesia problems: none Results Review: All pre-operative results and documents have been reviewed as part of the pre-operative evaluation. [facility] Past Medical History Medical History Tinnitus of both ears Stage 3a chronic kidney disease (CKD) Cervical pain Dementia Prediabetes Hypertension History of colon cancer Osteoarthritis Gastroesophageal reflux disease Hiatal hernia Raynauds phenomenon Dyslipidemia Idiopathic peripheral neuropathy Essential (primary) hypertension Chronic low back pain without sciatica Fibromyalgia Surgical History Surgical History History of breast biopsy (~2011) History of right hip replacement (~10/18/21) History of bladder surgery (~2011) rectocele History of hysterectomy (~1980) Subcapital fracture of neck of right femur Right bipolar hip replacement 10/19/2021 Encounter for care related to Port-a-Cath (10/2019) History of carpal tunnel release History of colectomy (09/22/19) Right sided with anastamosis. History of appendectomy (02/03/1969) History of total hysterectomy (07/25/80) Family History Family History Mother Carcinoma of colon Father Acute myocardial infarction Cancer Sibling Multiple myeloma Sibling Arthritis Social History Social History Social History: Surrogate medical decision maker: Prateek Wynn, . Code status: Full code. Smoking packs per day: 1 Smoking cigarettes per day: 20.0 Years smoked: 18 Smoking pack-years: 18.00 Smoking status: Former smoker Tobacco type: cigarettes Second hand tobacco smoke exposure: No Smoking end date: 03/23/75 Alcohol intake: never Substance use: never Substance use type: does not use Lack of Transportation: No Lack of Food: Never True Current Housing: Decline to Answer Concerned About Future Housing: Decline to Answer Difficulty Paying Gas/Electric Bills: Decline to Answer Difficulty Paying for Meds: Decline to Answer Currently Unemployed: Decline to Answer Education: Trade/Vocational Certificate Difficulty w/ Childcare or Family Care: Decline to Answer Living arrangements: with family Additional living arrangements comments: 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/Education: retired 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 Gender identity (if verbalized by the patient): Female Sexual Orientation (if Verbalized by the Patient): Straight or Heterosexual Spiritual care concerns: No Agree to blood products: No Anes - Eval Final PreProcedure Day of Procedure 03/13/25 14:37 Patient weight: normal Heart: regular rate and rhythm Lungs: normal air movement Airway: Mallampati scale class II Neurological: confused Last oral intake: >/= 8 hours ASA classification: III Emergent: no Anesthetic plan: proceed Anesthesia type and monitoring: general GIVS and standard monitoring Results Review: All pre-operative results and documents have been reviewed as part of the pre-operative evaluation. Informed Consent: The patient's anesthetic plan and its attendant risks and benefits were discussed with the patient/family/POA. Questions were solicited and answers provided to the satisfaction of the patient/family/POA.
[2025-03-13] MEDS: ceFAZolin 2 GM in SODIUM CHLORIDE 0.9% IV 50 ML 100 ML IVPB (14:50)
[2025-03-13] MEDS: BUPIVACAINE/EPINEPHRINE 0.5% 50 ML VIAL 30 ML INFILTRATE (14:52)
[2025-03-13 15:16] VITALS: BP 103/38; PULSE 77; RESP 14; O2SAT 100
--- NOTE | 2025-03-13 15:38 | W.PM.PROC2 ---
Procedure Note - Detailed Date of Procedure 03/13/25 Pre-op Diagnosis right IJ venous access device status post chemotherapy treatment Post-op Diagnosis Same Procedure Performed removal of right IJ venous access device Surgeon Edith Medrano MD Anesthesia MAC and Local Indications 89-year-old female with a history of colon cancer status post chemotherapy treatment. Patient had previous right internal jugular venous access device placed for chemotherapy. Patient reports no issues with port but would like removal as she has not used it in years. Findings Right internal jugular venous access device Description of Procedure The patient was taken the operating room and placed in the supine position. After adequate induction of MAC anesthesia, the patient was prepped and draped in the normal sterile fashion. A time-out was then done to verify the patient's identity, as well as procedure being performed. I began by localizing the area in around this venous access device in the right chest. I then made an incision at the previous incision site in the right chest. This was taken down through the dermis and into the subcutaneous tissue. Using the Bovie cautery and blunt dissection, I was able to gain access into the subcutaneous pocket where the port was located. I was able to remove the port from the subcutaneous pocket. The Ethibond sutures were cut. I then removed the catheter from the right internal jugular vein. Pressure was held at the level the right internal jugular vein for approximately 5 minutes. No bleeding was noted. I then closed the incision in the right chest with 4-0 Monocryl subcuticular suture. Dermabond was placed on the wound. Light pressure dressing was placed in the right neck. The patient tolerated the procedure well. She was alert and awake postoperatively. She will be sent to recovery room in stable condition. Estimated Blood Loss 5 Pathology None sent Complications No immediate complications Condition Stable Disposition PACU [facility] Billing Surgery - Charge Forward: Surgery Billing
[2025-03-13 15:45] VITALS: BP 138/70; PULSE 76
[2025-03-13 16:10] VITALS: BP 129/71; PULSE 73
== END 2025-03-13 16:30 | disposition home or self-care (01) ==
PROVIDERS: Anesthesiology; PCP Family Medicine; Visit Provider Surgery
PROC: (CPT 36589; principal; 2025-03-13 13:30)
DX: Z45.2 Encounter for adjustment and management of vascular access device (principal); Z85.038 Personal history of other malignant neoplasm of large intestine; N18.31 Chronic kidney disease, stage 3a; I12.9 Hypertensive chronic kidney disease with stage 1 through stage 4 chronic kidney disease, or unspecified chronic kidney disease; F03.90 Unspecified dementia, unspecified severity, without behavioral disturbance, psychotic disturbance, mood disturbance, and anxiety; K21.9 Gastro-esophageal reflux disease without esophagitis; E78.5 Hyperlipidemia, unspecified; R73.03 Prediabetes; Z87.891 Personal history of nicotine dependence
CPT/HCPCS: 36590; 36415; 85014; 85018; 85610; 85730; J0690; J2704; J7120